=== PATIENT | female | born 1950 | race Caucasian/White ===

== ENCOUNTER → 2016-04-06 | Outpatient (CLI) | payer OTHER, MEDICARE ==
[~2016-04-06] MED LIST: ACET1TAB84 PO; ATV5X PO; CALC-354 PO; CHOL100027 PO; CIPR-255 PO; CITA40TA4 PO; CLR10 PO; HYDR-5688 PO; MELA5CAP PO; METR0.754 TOP; METR500T PO; OXYC1TAB3 PO; PEDICHW44 PO; PSEU30TA20 PO
--- NOTE | 2016-04-06 13:22 | DIAGNOSTIC IMAGING REPORT ---
RIGHT WRIST MIN 3 VIEWS ROUTINE CLINICAL HISTORY: RIGHT WRIST PAIN Right healing fracture COMPARISON: 03/30/2016 DISCUSSION: Mild degenerative changes throughout. No well-defined evidence for fracture. No abnormal periosteal reaction. There is no evidence for soft tissue swelling. IMPRESSION: Mild degenerative change. No acute bony abnormality. No change as compared to the prior study. Electronically signed by: Steve Moise M.D. 04/06/2016 1:20 PM
--- NOTE | 2016-04-06 13:28 | DIAGNOSTIC IMAGING REPORT ---
RIGHT ELBOW MIN 3 VIEWS CLINICAL HISTORY: Healing fracture COMPARISON: 03/30/2016 DISCUSSION: There is subtle angulation of the radial neck consistent with a radial neck fracture. There is no change in alignment. There is no dislocation. IMPRESSION: Suspected radial neck fracture. No change in alignment.. Electronically signed by: Dyllan Krishnan M.D. 04/06/2016 1:26 PM
== END | disposition home or self-care (01) ==
LOC: C.RDSM 08:00
PROVIDERS: ATTEND Physical Medicine & Rehabilitation Sports Medicine
DX: M25.531 Pain in right wrist (principal); M25.521 Pain in right elbow

== ENCOUNTER → 2016-04-19 | Outpatient (CLI) | payer OTHER, MEDICARE ==
--- NOTE | 2016-04-19 07:38 | DIAGNOSTIC IMAGING REPORT ---
KUB CLINICAL HISTORY: Nephrolithiasis. COMPARISON STUDY: CT of the abdomen and pelvis March 04, 2015. FINDINGS: There are numerous coils from prior hernia repair. There is a large amount of stool within the colon. Pelvic calcifications were shown to represent phleboliths on a prior CT. No renal calculi are identified although the kidneys are partially obscured by stool. IMPRESSION: No urinary calculi identified although both renal shadows are partially obscured by stool. Electronically signed by: Aquiles Wong M.D. 04/19/2016 7:36 AM Dictated Date/Time: 04/19/2016 7:34 AM
== END | disposition home or self-care (01) ==
LOC: C.RAD 07:14
PROVIDERS: ATTEND Nurse Practitioner Family
DX: N20.0 Calculus of kidney (principal)

== ENCOUNTER → 2016-04-20 | Outpatient (CLI) | payer OTHER, MEDICARE | END | disposition home or self-care (01) | LOC: C.RDSM 07:37 | PROVIDERS: ATTEND Physical Medicine & Rehabilitation Sports Medicine | DX: S52.571D Other intraarticular fracture of lower end of right radius, subsequent encounter for closed fracture with routine healing (principal); X58.XXXD Exposure to other specified factors, subsequent encounter ==

== ENCOUNTER → 2016-05-21 | Outpatient (CLI) | payer OTHER, MEDICARE | END | disposition home or self-care (01) | LOC: C.RDSM 12:09 | PROVIDERS: ATTEND Physical Medicine & Rehabilitation Sports Medicine | DX: S62.001D Unspecified fracture of navicular [scaphoid] bone of right wrist, subsequent encounter for fracture with routine healing (principal); X58.XXXD Exposure to other specified factors, subsequent encounter ==

== ENCOUNTER → 2016-06-21 | Outpatient (CLI) | payer OTHER, MEDICARE | END | disposition home or self-care (01) | LOC: C.RDSM 08:00 | PROVIDERS: ATTEND Physical Medicine & Rehabilitation Sports Medicine | DX: S62.024D Nondisplaced fracture of middle third of navicular [scaphoid] bone of right wrist, subsequent encounter for fracture with routine healing (principal); X58.XXXA Exposure to other specified factors, initial encounter ==

== ENCOUNTER → 2016-06-23 | Outpatient (CLI) | payer OTHER, MEDICARE ==
--- NOTE | 2016-06-23 13:09 | DIAGNOSTIC IMAGING REPORT ---
CT SCAN OF THE RIGHT WRIST WITHOUT IV CONTRAST CLINICAL HISTORY: Scaphoid fracture. COMPARISON STUDY: Radiographs of the right wrist dated 06/21/2016 and 05/21/2016. TECHNIQUE: CT scan of the right wrist is performed from the distal radius and ulna to the proximal phalanges. Images are reviewed in the axial, sagittal, and coronal planes. IV contrast was not administered for this examination. CT DOSE: 205.49 mGy.cm FINDINGS: The skeletal structures are osteopenic. There is no evidence of acute or healing fracture. There is a chronic avulsion injury of the radial styloid. Foci of cystic degenerative change are seen within the scaphoid and the lunate. Mild degenerative narrowing is seen throughout the intercarpal and carpometacarpal joints. There is mild widening between the scaphoid and the lunate which measures up to 4.5 mm suggesting ligamentous injury. There is no proximal migration of the capitate. The overlying soft tissues are normal as visualized. IMPRESSION: 1. There is no evidence of acute or healing fracture in the right wrist. 2. There is widening between the scaphoid and the lunate suggesting ligamentous injury. 3. Osteopenia and degenerative change as above. Dictated: 06/23/2016 12:27 PM Transcribed: 06/23/2016 1:09 PM [email or web address] Electronically signed by: Sami Cantrell M.D. 06/23/2016 1:13 PM Dictated Date/Time: 06/23/2016 12:27 PM
== END | disposition home or self-care (01) ==
LOC: C.CTS 12:04
PROVIDERS: ATTEND Physical Medicine & Rehabilitation Sports Medicine
DX: S62.024D Nondisplaced fracture of middle third of navicular [scaphoid] bone of right wrist, subsequent encounter for fracture with routine healing (principal); X58.XXXD Exposure to other specified factors, subsequent encounter; M85.831 Other specified disorders of bone density and structure, right forearm

== ENCOUNTER → 2016-06-25 | Outpatient (CLI) | payer OTHER, MEDICARE | END | disposition home or self-care (01) | LOC: C.RDSM 12:18 | PROVIDERS: ATTEND Physical Medicine & Rehabilitation Sports Medicine | DX: S52.124D Nondisplaced fracture of head of right radius, subsequent encounter for closed fracture with routine healing (principal); X58.XXXD Exposure to other specified factors, subsequent encounter ==

== ENCOUNTER 2016-08-17 21:32 | Emergency (ER) | payer OTHER, MEDICARE ==
[~2016-08-17] VITALS: Ht 163.8 cm; Wt 133.2 kg
[~2016-08-17 21:32] MED LIST changes: -CIPR-255 PO; -HYDR-5688 PO; -METR500T PO; -PSEU30TA20 PO
[2016-08-17 21:42] VITALS: TEMP 36.6; Ht 163.8 cm; Wt 133.2 kg
[2016-08-17] MEDS ORDERED: KETOROLAC TROMETHAMINE 30 MG/ML VIAL IV STA (21:55)
[2016-08-17] MEDS ORDERED: HYDROmorphone INJ 0.5 MG/0.5 ML SYR IV STA (21:55)
[2016-08-17] MEDS ORDERED: PSEU30TA20 PO (22:15)
--- NOTE | 2016-08-17 22:21 | EMERGENCY ROOM VISIT NOTE ---
History Report prepared by Willieibpao: Montserrat Olsen Under the Supervision of: Ag RankinO. First contact with patient: 21:46 Chief Complaint: KIDNEY STONE Stated Complaint: LEFT KIDNEY STONE History of Present Illness The patient is a 66 year old female who presents to the Emergency Room with complaints of persistent left flank pain starting about 5 hours ago. She currently rates a pain intensity of 9/10. She denies nausea, vomiting, urinary symptoms, or any other complaints. She has a history of similar symptoms occurring with kidney stones. Her last episode of kidney stones occurred a few years ago. She also has a history of pyelonephritis. Source of History: patient Onset: about 5 hours ago Position: other (left flank) Symptom Intensity: 9/10 Timing: other (persistent) Associated Symptoms: No nausea, No urinary symptoms, No vomiting Review of Systems See HPI for pertinent positives and negatives. A total of ten systems were reviewed and were otherwise negative. Past Medical & Surgical Medical Problems: (1) Anxiety (2) Depression (3) History of asthma (4) History of kidney stones (5) History of sleep apnea (6) Intestinal Bypass Status (7) Osteoarthritis (8) Rosacea Surgical Problems: (1) History of gastric bypass (2) History of hysterectomy (3) History of lithotripsy (4) History of tubal ligation (5) History of umbilical hernia repair (6) History of ureter stent Family History Aneurysm Cardiovascular disease FH: heart disease Social History Smoking Status: Never Smoker Alcohol Use: none Marital Status: Housing Status: lives with family Occupation Status: retired Current/Historical Medications Scheduled Calcium Carbonate-Cholecalcife (Caltrate 600+D), 1 TAB PO BIDM Cholecalciferol (Vitamin D 1000 Unit), 1,000 INTER.UNIT PO DAILY Citalopram (Citalopram Hydrobromide), 40 MG PO DAILY Loratadine (Claritin), 10 MG PO QAM Melatonin (Melatonin), 5 MG PO HS Metronidazole (Topical) (Metrocream), 1 APPLN TOP BID Pediatric Multiple Vitamins W/ (Flintstones Plus Iron), 1 TAB PO BID Scheduled PRN Acetaminophen (Tylenol Arthritis Ext Rel), 2 CAP PO Q8H PRN for Pain Lorazepam (Lorazepam), 0.5 MG PO TID PRN for Anxiety Pseudoephedrine (Sudafed), 30 MG PO DAILY PRN for PRN Allergies Coded Allergies: Adhesives (Verified Allergy, Unknown, RED RASH, 03/20/16) BEE STING (Verified Allergy, Unknown, 03/20/16) Dust (Verified Allergy, Unknown, sinusitis, 03/20/16) NO KNOWN DRUG ALLERGIES (Verified Allergy, Unknown, ., 03/20/16) Physical Exam Vital Signs Date Time Temp Pulse Resp B/P Pulse Ox O2 Delivery O2 Flow Rate FiO2 08/17/16 22:59 75 18 118/82 98 Room Air 08/17/16 21:42 36.6 73 18 158/71 98 Room Air Physical Exam GENERAL: Awake, alert, well-appearing, in no distress HENT: Normocephalic, atraumatic. Oropharynx unremarkable. EYES: Normal conjunctiva. Sclera non-icteric. NECK: Supple. No nuchal rigidity. FROM. No JVD. RESPIRATORY: Clear to auscultation. CARDIAC: Regular rate, normal rhythm. Extremities warm and well perfused. Pulses equal. ABDOMEN: Soft, non-distended. No tenderness to palpation. No rebound or guarding. No masses. RECTAL: Deferred. MUSCULOSKELETAL: Chest examination reveals no tenderness. The back is symmetrical on inspection without obvious abnormality. Left costovertebral tenderness to palpation. No joint edema. LOWER EXTREMITIES: Calves are equal size bilaterally and non-tender. No edema. No discoloration. NEURO: Normal sensorium. No sensory or motor deficits noted. SKIN: No rash or jaundice noted. Medical Decision & Procedures ER Provider Diagnostic Interpretation: CT: Radiology results as stated below per my review and radiologist interpretation CT SCAN OF THE ABDOMEN AND PELVIS WITHOUT CONTRAST CLINICAL HISTORY: Left-sided abdominal pain COMPARISON STUDY: 03/04/2015 TECHNIQUE: CT scan of the abdomen and pelvis was performed from the lung bases to the proximal femurs. Images are reviewed in the axial, sagittal, and coronal planes. IV contrast was not administered for this examination. CT DOSE: 1936.80 mGy.cm FINDINGS: Lower chest: There is minor basilar atelectasis Liver: There is stable right left lobe hypodensities, the largest of which measures 38 mm. These likely represent cysts. Gallbladder: Surgically absent Spleen: Normal in size and attenuation. Pancreas: Unremarkable. Adrenal glands: Unremarkable. Kidneys: There are bilateral renal cysts. The largest is located on the lower pole the left kidney measuring 24 mm. No renal, ureteral, or bladder calculi are visualized. Bowel: There are postsurgical changes of a gastric bypass and Jeevan-en-Y anastomosis. There are no transition zones indicate bowel obstruction. There are mild peridiverticular inflammatory changes involving the mid descending colon. The findings are consistent with diverticulitis. There are no fluid collections to indicate an abscess. The appendix appears normal. Peritoneum: There is no intraperitoneal free air or abdominal ascites. There are postsurgical changes of a ventral hernia mesh repairs Vasculature: The abdominal aorta is normal in course and caliber. Adenopathy: None. Pelvic viscera: The uterus appears surgically absent Skeletal structures: No destructive osseous lesions are seen. IMPRESSION: 1. Acute diverticulitis involving the mid descending colon. No evidence of peridiverticular abscess. Electronically signed by: Dyllan Krishnan M.D. 08/17/2016 10:44 PM Dictated Date/Time: 08/17/2016 10:37 PM Laboratory Results 08/17/16 22:10 Red Blood Count 4.07, Mean Corpuscular Volume 99.8, Mean Corpuscular Hemoglobin 31.7, Mean Corpuscular Hemoglobin Concent 31.8, Mean Platelet Volume 11.0, Neutrophils (%) (Auto) 65.0, Lymphocytes (%) (Auto) 25.5, Monocytes (%) (Auto) 7.4, Eosinophils (%) (Auto) 1.6, Basophils (%) (Auto) 0.3, Neutrophils # (Auto) 7.00, Lymphocytes # (Auto) 2.74, Monocytes # (Auto) 0.80, Eosinophils # (Auto) 0.17, Basophils # (Auto) 0.03 08/17/16 22:10 Test 08/17/16 22:10 White Blood Count 10.76 K/uL (4.8-10.8) Red Blood Count 4.07 M/uL (4.2-5.4) Hemoglobin 12.9 g/dL (12.0-16.0) Hematocrit 40.6 % (37-47) Mean Corpuscular Volume 99.8 fL (80-100) Mean Corpuscular Hemoglobin 31.7 pg (25-34) Mean Corpuscular Hemoglobin Concent 31.8 g/dl (32-36) Platelet Count 258 K/uL (130-400) Mean Platelet Volume 11.0 fL (7.4-10.4) Neutrophils (%) (Auto) 65.0 % Lymphocytes (%) (Auto) 25.5 % Monocytes (%) (Auto) 7.4 % Eosinophils (%) (Auto) 1.6 % Basophils (%) (Auto) 0.3 % Neutrophils # (Auto) 7.00 K/uL (1.4-6.5) Lymphocytes # (Auto) 2.74 K/uL (1.2-3.4) Monocytes # (Auto) 0.80 K/uL (0.11-0.59) Eosinophils # (Auto) 0.17 K/uL (0-0.5) Basophils # (Auto) 0.03 K/uL (0-0.2) RDW Standard Deviation 49.8 fL (36.4-46.3) RDW Coefficient of Variation 13.5 % (11.5-14.5) Immature Granulocyte % (Auto) 0.2 % Immature Granulocyte # (Auto) 0.02 K/uL (0.00-0.02) Urine Color YELLOW Urine Appearance CLOUDY (CLEAR) Urine pH 5.5 (4.5-7.5) Urine Specific [place] 1.014 (1.000-1.030) Urine Protein NEG (NEG) Urine Glucose (UA) NEG (NEG) Urine Ketones NEG (NEG) Urine Occult Blood TRACE (NEG) Urine Nitrite NEG (NEG) Urine Bilirubin NEG (NEG) Urine Urobilinogen NEG (NEG) Urine Leukocyte Esterase LARGE (NEG) Urine WBC (Auto) >30 /hpf (0-5) Urine RBC (Auto) 0-4 /hpf (0-4) Urine Hyaline Casts (Auto) 5-10 /lpf (0-5) Urine Epithelial Cells (Auto) 5-10 /lpf (0-5) Urine Bacteria (Auto) NEG (NEG) Anion Gap 7.0 mmol/L (3-11) Est Creatinine Clear Calc Drug Dose 113.3 ml/min Estimated GFR () 105.9 Estimated GFR (Non- 91.4 BUN/Creatinine Ratio 22.0 (10-20) Calcium Level 8.4 mg/dl (8.5-10.1) Laboratory results reviewed by me Medications Administered Medications (Trade) Dose Ordered Sig/Benny Route Start Time Stop Time Status Last Admin Dose Admin Ketorolac Tromethamine (Toradol Inj) 30 mg NOW STAT IV 08/17/16 21:55 08/17/16 21:56 DC 08/17/16 22:14 30 MG Hydromorphone HCl (Dilaudid Inj) 0.5 mg NOW STAT IV 08/17/16 21:55 08/17/16 21:56 DC 08/17/16 22:14 0.5 MG Ciprofloxacin (Cipro Tab) 500 mg NOW STAT PO 08/17/16 22:52 08/17/16 22:53 DC 08/17/16 22:57 500 MG Metronidazole (Flagyl Tab) 500 mg NOW STAT PO 08/17/16 22:52 08/17/16 22:53 DC 08/17/16 22:57 500 MG ED Course 2145: The patient was evaluated in room B11B. A complete history and physical exam was performed. 2154: Dilaudid Inj 0.5 mg IV, Toradol Inj 30 mg IV 2251: Flagyl Tab 500 mg PO, Cipro Tab 500 mg PO 2256: I reevaluated the patient. Discussed results and discharge instructions: She verbalized understanding and agreement. The patient is ready for discharge. Medical Decision Differential diagnosis includes but is not limited to renal colic, pyelonephritis. Patient resting in no distress on repeat examination. Patient was found have acute diverticulitis without an abscess. Patient was started on Cipro and Flagyl I discussed the workup with the patient patient's at bedside. Patient will follow-up and will be on antibiotics for the next 10 days. Impression Primary Impression: Acute diverticulitis Additional Impression: Left flank pain Scribe Attestation The scribe's documentation has been prepared under my direction and personally reviewed by me in its entirety. I confirm that the note above accurately reflects all work, treatment, procedures, and medical decision making performed by me. Departure Information Dispostion Home / Self-Care Prescriptions Hydrocodone/Acetaminophen 5MG/325MG ([place] 5MG/325MG) Tab 1 TABLET PO Q4H Y for Pain, #14 TAB Prov: Diogo Mcqueen, DO 08/17/16 Metronidazole (FLAGYL) 500 Mg Tab 500 MG PO BID, #20 TAB Prov: Diogo Mcqueen, DO 08/17/16 Ciprofloxacin Hcl (CIPRO) 500 Mg Tab 500 MG PO BID, #20 TAB Prov: Diogo Mcqueen, DO 08/17/16 Referrals Steve Machado M.D. (PCP) Forms HOME CARE DOCUMENTATION FORM, IMPORTANT VISIT INFORMATION Patient Instructions ED Diverticulitis, [facility] Problem Qualifiers
[2016-08-17 22:22] LABS: BASO % 0.3 %; BASO ABS # 0.03 K/uL (0-0.2); COMPLETE YES; EOS % 1.6 %; HEMATOCRIT 40.6 % (37-47); IG% 0.2 %; LYMPH % 25.5 %; LYMPH ABS # 2.74 K/uL (1.2-3.4); MEAN CELL VOLUME 99.8 fL (80-100); MEAN CORPUSCULAR HEMOGLOBIN 31.7 pg (25-34); MEAN CORPUSCULAR HGB CONC 31.8 g/dl (32-36); MONO % 7.4 %; PLATELET COUNT 258 K/uL (130-400); RED BLOOD COUNT 4.07 M/uL (4.2-5.4); WHITE BLOOD COUNT 10.76 K/uL (4.8-10.8)
[2016-08-17 22:42] LABS: CREATININE 0.66 mg/dl (0.60-1.20); POTASSIUM 3.8 mmol/L (3.5-5.1)
[2016-08-17 22:43] LABS: CALCIUM 8.4 mg/dl (8.5-10.1); URINE APPEARANCE CLOUDY (CLEAR); URINE BILIRUBIN NEG (NEG); URINE COLOR YELLOW; URINE NITRITE NEG (NEG); URINE PH 5.5 (4.5-7.5); URINE SPECIFIC GRAVITY 1.014 (1.000-1.030); UROBILINOGEN NEG (NEG)
--- NOTE | 2016-08-17 22:45 | DIAGNOSTIC IMAGING REPORT ---
CT SCAN OF THE ABDOMEN AND PELVIS WITHOUT CONTRAST CLINICAL HISTORY: Left-sided abdominal pain COMPARISON STUDY: 03/04/2015 TECHNIQUE: CT scan of the abdomen and pelvis was performed from the lung bases to the proximal femurs. Images are reviewed in the axial, sagittal, and coronal planes. IV contrast was not administered for this examination. CT DOSE: 1936.80 mGy.cm FINDINGS: Lower chest: There is minor basilar atelectasis Liver: There is stable right left lobe hypodensities, the largest of which measures 38 mm. These likely represent cysts. Gallbladder: Surgically absent Spleen: Normal in size and attenuation. Pancreas: Unremarkable. Adrenal glands: Unremarkable. Kidneys: There are bilateral renal cysts. The largest is located on the lower pole the left kidney measuring 24 mm. No renal, ureteral, or bladder calculi are visualized. Bowel: There are postsurgical changes of a gastric bypass and Jeevan-en-Y anastomosis. There are no transition zones indicate bowel obstruction. There are mild peridiverticular inflammatory changes involving the mid descending colon. The findings are consistent with diverticulitis. There are no fluid collections to indicate an abscess. The appendix appears normal. Peritoneum: There is no intraperitoneal free air or abdominal ascites. There are postsurgical changes of a ventral hernia mesh repairs Vasculature: The abdominal aorta is normal in course and caliber. Adenopathy: None. Pelvic viscera: The uterus appears surgically absent Skeletal structures: No destructive osseous lesions are seen. IMPRESSION: 1. Acute diverticulitis involving the mid descending colon. No evidence of peridiverticular abscess. Electronically signed by: Dyllan Krishnan M.D. 08/17/2016 10:44 PM Dictated Date/Time: 08/17/2016 10:37 PM
[2016-08-17 22:47] LABS: MANUAL MICROSCOPIC REQUIRED? NO; REVIEW REQ? NO
[2016-08-17] MEDS ORDERED: CIPROFLOXACIN 500 MG TAB PO STA (22:52)
[2016-08-17] MEDS ORDERED: METRONIDAZOLE 250 MG TAB PO STA (22:52)
[2016-08-17 22:59] VITALS: BP 118/82; PULSE 75; O2SAT 98
[2016-08-17] MEDS ORDERED: CIPR-255 PO (23:13)
[2016-08-17] MEDS ORDERED: HYDR-5688 PO (23:13)
[2016-08-17] MEDS ORDERED: METR500T PO (23:13)
== END 2016-08-17 23:30 | disposition home or self-care (01) ==
LOC: C.EDB 21:33
DX: K57.92 Diverticulitis of intestine, part unspecified, without perforation or abscess without bleeding (principal); F32.9 Major depressive disorder, single episode, unspecified; F41.9 Anxiety disorder, unspecified; J45.909 Unspecified asthma, uncomplicated; M19.90 Unspecified osteoarthritis, unspecified site; G47.30 Sleep apnea, unspecified; Z87.442 Personal history of urinary calculi; Z90.710 Acquired absence of both cervix and uterus; Z98.84 Bariatric surgery status; Z98.51 Tubal ligation status; Z79.899 Other long term (current) drug therapy; Z91.09 Other allergy status, other than to drugs and biological substances; Z91.030 Bee allergy status; Z82.49 Family history of ischemic heart disease and other diseases of the circulatory system

== ENCOUNTER 2017-02-21 16:14 | Emergency (ER) | payer OTHER, MEDICARE ==
[~2017-02-21] VITALS: Ht 163.8 cm; Wt 131.6 kg
[~2017-02-21 16:14] MED LIST changes: +CIPR-255 PO; -OXYC1TAB3 PO; +PSEU30TA20 PO
[2017-02-21 16:23] VITALS: TEMP 36.7; Ht 163.8 cm; Wt 131.6 kg
[2017-02-21] MEDS ORDERED: LIDODERM (LIDOCAINE) PATCH 5% TD STA (16:37)
[2017-02-21 17:10] LABS: MANUAL MICROSCOPIC REQUIRED? YES; URINE APPEARANCE CLEAR (CLEAR); URINE BILIRUBIN NEG (NEG); URINE COLOR YELLOW; URINE NITRITE NEG (NEG); URINE PH 5.5 (4.5-7.5); URINE SPECIFIC GRAVITY 1.025 (1.000-1.030); UROBILINOGEN NEG (NEG)
[2017-02-21 17:16] LABS: REVIEW REQ? NO
[2017-02-21 17:23] LABS: BASO % 0.3 %; BASO ABS # 0.03 K/uL (0-0.2); COMPLETE YES; EOS % 3.4 %; HEMATOCRIT 41.2 % (37-47); IG% 0.4 %; LYMPH % 26.4 %; MEAN CELL VOLUME 96.9 fL (80-100); MEAN CORPUSCULAR HEMOGLOBIN 31.8 pg (25-34); MEAN CORPUSCULAR HGB CONC 32.8 g/dl (32-36); MEAN PLATELET VOLUME 11.1 fL (7.4-10.4); MONO % 8.6 %; NEUT % 60.9 %; PLATELET COUNT 299 K/uL (130-400); RED BLOOD COUNT 4.25 M/uL (4.2-5.4); WHITE BLOOD COUNT 9.08 K/uL (4.8-10.8)
[2017-02-21 17:38] LABS: ALT/SGPT 16 U/L (12-78); BLOOD UREA NITROGEN 9 mg/dl (7-18); CALCIUM 8.6 mg/dl (8.5-10.1); CARBON DIOXIDE 31 mmol/L (21-32); CHLORIDE 103 mmol/L (98-107); CREATININE 0.67 mg/dl (0.60-1.20); GLUCOSE 86 mg/dl (70-99); POTASSIUM 3.4 mmol/L (3.5-5.1); SODIUM 140 mmol/L (136-145)
[2017-02-21 17:43] LABS: ALB/GLOB RATIO 0.8 (0.9-2); ALKALINE PHOSPHATASE 115 U/L (45-117); AST/SGOT 20 U/L (15-37)
[2017-02-21 17:52] LABS: URINE BACTERIA NEG (NEG); URINE RBC 0-4 /hpf (0-4)
[2017-02-21 17:53] LABS: ZZUR CULT IF INDIC CLEAN CATCH NO
--- NOTE | 2017-02-21 17:59 | DIAGNOSTIC IMAGING REPORT ---
L RIBS UNILATERAL WITH PA CHEST CLINICAL HISTORY: left lateral rib pain pain COMPARISON STUDY: None FINDINGS: No acute bony abnormality of the ribs. Cortical margins are intact. Like atelectasis left base. No evidence pneumothorax. IMPRESSION: 1. Negative left ribs. 2. Platelike atelectasis left base. 3. No evidence for pneumothorax. The above report was generated using voice recognition software. It may contain grammatical, syntax or spelling errors. Electronically signed by: Steve Moise M.D. 02/21/2017 5:58 PM Dictated Date/Time: 02/21/2017 5:55 PM
--- NOTE | 2017-02-21 18:14 | EMERGENCY ROOM VISIT NOTE ---
History Report prepared by Susan: Surendra Vargas Under the Supervision of: Dr. Estela Reid D.O. First contact with patient: 16:26 Chief Complaint: FLANK PAIN Stated Complaint: PAIN IN LEFT SIDE History of Present Illness The patient is a 66 year old female who presents to the Emergency Room with complaints of intermittent left rib pain beginning today. She describes her pain as "burning" and "sharp". She also complains of an occasionally productive cough, chills and cold-like symptoms. The patient's pain is worsened with coughing and movement. She notes that she had diarrhea last week, and has not had a bowel movement in the past several days. She vomited once last week after eating Spaghetti as well. She has taken Tylenol for her pain, but this has not helped. The patient is currently taking Augmentin and Tessalon Perles. Her symptoms are worse at night, and worse with lying down. She denies urinary symptoms. The patient states that she has not been eating much recently. She has a history of diverticulitis, and kidney stones. She feels that her pain feels more like diverticulitis than kidney stones. Source of History: patient Onset: Today Position: other (left ribs) Timing: intermittent Modifying Factors (Worsening): movement, other (coughing) Associated Symptoms: + chills, + cough (occasionally productive), + diarrhea (last week), No urinary symptoms Note: Additional symptoms: cold-like symptoms. Review of Systems See HPI for pertinent positives & negatives. A total of 10 systems reviewed and were otherwise negative. Past Medical & Surgical Medical Problems: (1) Anxiety (2) Depression (3) History of asthma (4) History of kidney stones (5) History of sleep apnea (6) Intestinal Bypass Status (7) Osteoarthritis (8) Rosacea Surgical Problems: (1) History of gastric bypass (2) History of hysterectomy (3) History of lithotripsy (4) History of tubal ligation (5) History of umbilical hernia repair (6) History of ureter stent Family History Aneurysm Cardiovascular disease FH: heart disease Social History Smoking Status: Never Smoker Alcohol Use: none Marital Status: Housing Status: lives with family Occupation Status: retired Current/Historical Medications Scheduled Calcium Carbonate-Cholecalcife (Caltrate 600+D), 1 TAB PO BIDM Cholecalciferol (Vitamin D 1000 Unit), 1,000 INTER.UNIT PO DAILY Ciprofloxacin Hcl (Cipro), 500 MG PO BID Citalopram (Citalopram Hydrobromide), 40 MG PO DAILY Loratadine (Claritin), 10 MG PO QAM Melatonin (Melatonin), 5 MG PO HS Metronidazole (Topical) (Metrocream), 1 APPLN TOP BID Pediatric Multiple Vitamins W/ (Flintstones Plus Iron), 1 TAB PO BID Scheduled PRN Acetaminophen (Tylenol Arthritis Ext Rel), 2 CAP PO Q8H PRN for Pain Lorazepam (Lorazepam), 0.5 MG PO TID PRN for Anxiety Pseudoephedrine (Sudafed), 30 MG PO DAILY PRN for PRN Allergies Coded Allergies: Adhesives (Verified Allergy, Unknown, RED RASH, 03/20/16) BEE STING (Verified Allergy, Unknown, 03/20/16) Dust (Verified Allergy, Unknown, sinusitis, 03/20/16) NO KNOWN DRUG ALLERGIES (Verified Allergy, Unknown, ., 03/20/16) Physical Exam Vital Signs Date Time Temp Pulse Resp B/P (MAP) Pulse Ox O2 Delivery O2 Flow Rate FiO2 02/21/17 16:23 36.7 74 20 137/56 95 Room Air Physical Exam GENERAL: alert, well appearing, well nourished, no distress, non-toxic. Obese EYE EXAM: normal conjunctiva, PERRL and EOM's grossly intact OROPHARYNX: no exudate, no erythema, lips, buccal mucosa, and tongue normal and mucous membranes are moist NECK: supple, no nuchal rigidity, no adenopathy, non-tender LUNGS: Clear to auscultation. Normal chest wall mechanics. Normal wheezes, rhonchi, rales. HEART: no murmurs, S1 normal and S2 normal CHEST: Reproducible chest pain along left lateral ribs, no crepitus, no step- off. ABDOMEN: abdomen soft, non-tender, normo-active bowel sounds, no masses, no rebound or guarding. BACK: Back is symmetrical on inspection and there is no deformity, no midline tenderness, no CVA tenderness. SKIN: no rashes and no bruising UPPER EXTREMITIES: upper extremities are grossly normal. LOWER EXTREMITIES: No pitting edema. NEURO EXAM: Normal sensorium, cranial nerves II-XII grossly intact, normal speech, no gross weakness of arms, no gross weakness of legs. Medical Decision & Procedures ER Provider Diagnostic Interpretation: Radiology results have been interpreted by the radiologist and reviewed by me. L RIBS UNILATERAL WITH PA CHEST CLINICAL HISTORY: left lateral rib pain pain COMPARISON STUDY: None FINDINGS: No acute bony abnormality of the ribs. Cortical margins are intact. Like atelectasis left base. No evidence pneumothorax. IMPRESSION: 1. Negative left ribs. 2. Platelike atelectasis left base. 3. No evidence for pneumothorax. The above report was generated using voice recognition software. It may contain grammatical, syntax or spelling errors. Electronically signed by: Steve Moise M.D. 02/21/2017 5:58 PM Laboratory Results 02/21/17 16:50 Red Blood Count 4.25, Mean Corpuscular Volume 96.9, Mean Corpuscular Hemoglobin 31.8, Mean Corpuscular Hemoglobin Concent 32.8, Mean Platelet Volume 11.1, Neutrophils (%) (Auto) 60.9, Lymphocytes (%) (Auto) 26.4, Monocytes (%) (Auto) 8.6, Eosinophils (%) (Auto) 3.4, Basophils (%) (Auto) 0.3, Neutrophils # (Auto) 5.52, Lymphocytes # (Auto) 2.40, Monocytes # (Auto) 0.78, Eosinophils # (Auto) 0.31, Basophils # (Auto) 0.03 02/21/17 16:50 Test 02/21/17 00:00 02/21/17 16:50 Urine Color YELLOW Urine Appearance CLEAR (CLEAR) Urine pH 5.5 (4.5-7.5) Urine Specific [place] 1.025 (1.000-1.030) Urine Protein NEG (NEG) Urine Glucose (UA) NEG (NEG) Urine Ketones NEG (NEG) Urine Occult Blood TRACE (NEG) Urine Nitrite NEG (NEG) Urine Bilirubin NEG (NEG) Urine Urobilinogen NEG (NEG) Urine Leukocyte Esterase TRACE (NEG) Urine RBC 0-4 /hpf (0-4) Urine WBC 1-5 /hpf (0-5) Urine Epithelial Cells 10-20 /lpf (0-5) Urine Renal Cells 0-5 /lpf (FEW) Urine Bacteria NEG (NEG) White Blood Count 9.08 K/uL (4.8-10.8) Red Blood Count 4.25 M/uL (4.2-5.4) Hemoglobin 13.5 g/dL (12.0-16.0) Hematocrit 41.2 % (37-47) Mean Corpuscular Volume 96.9 fL (80-100) Mean Corpuscular Hemoglobin 31.8 pg (25-34) Mean Corpuscular Hemoglobin Concent 32.8 g/dl (32-36) Platelet Count 299 K/uL (130-400) Mean Platelet Volume 11.1 fL (7.4-10.4) Neutrophils (%) (Auto) 60.9 % Lymphocytes (%) (Auto) 26.4 % Monocytes (%) (Auto) 8.6 % Eosinophils (%) (Auto) 3.4 % Basophils (%) (Auto) 0.3 % Neutrophils # (Auto) 5.52 K/uL (1.4-6.5) Lymphocytes # (Auto) 2.40 K/uL (1.2-3.4) Monocytes # (Auto) 0.78 K/uL (0.11-0.59) Eosinophils # (Auto) 0.31 K/uL (0-0.5) Basophils # (Auto) 0.03 K/uL (0-0.2) RDW Standard Deviation 46.8 fL (36.4-46.3) RDW Coefficient of Variation 13.3 % (11.5-14.5) Immature Granulocyte % (Auto) 0.4 % Immature Granulocyte # (Auto) 0.04 K/uL (0.00-0.02) Anion Gap 6.0 mmol/L (3-11) Est Creatinine Clear Calc Drug Dose 110.8 ml/min Estimated GFR () 105.4 Estimated GFR (Non- 91.0 BUN/Creatinine Ratio 13.0 (10-20) Calcium Level 8.6 mg/dl (8.5-10.1) Total Bilirubin 0.2 mg/dl (0.2-1) Aspartate Amino Transf (AST/SGOT) 20 U/L (15-37) Alanine Aminotransferase (ALT/SGPT) 16 U/L (12-78) Alkaline Phosphatase 115 U/L (45-117) Troponin I < 0.015 ng/ml (0-0.045) Pro-B-Type Natriuretic Peptide 154 pg/ml (0-900) Total Protein 7.2 gm/dl (6.4-8.2) Albumin 3.1 gm/dl (3.4-5.0) Globulin 4.1 gm/dl (2.5-4.0) Albumin/Globulin Ratio 0.8 (0.9-2) Laboratory results per my review. Medications Administered Medications (Trade) Dose Ordered Sig/Benny Route Start Time Stop Time Status Last Admin Dose Admin Lidocaine (Lidoderm Patch 5%) 1 patch NOW STAT TD 02/21/17 16:37 02/21/17 16:40 DC 02/21/17 18:12 1 PATCH ED Course 1627: The patient was evaluated in room A12B. A complete history and physical exam was performed. 1637: Ordered Lidocaine TD. 1802: Upon reevaluation, the patient is feeling better. I discussed the findings and the treatment plan with the patient. She verbalizes agreement and understanding. The patient was discharged home. Medical Decision Differential diagnosis: Etiologies such as cardiac ischemia, aortic dissection, pulmonary embolism, pneumonia, pneumothorax, musculoskeletal, infections, pericarditis, myocarditis , esophageal rupture, gastrointestinal, as well as others were entertained. Medication Reconcilliation Current Medication List: was personally reviewed by me Blood Pressure Screening Patient's blood pressure: Elevated blood pressure Blood pressure disposition: Elevated BP felt to be situational Impression Primary Impression: Left flank pain Additional Impressions: Upper respiratory infection Musculoskeletal pain Scribe Attestation The scribe's documentation has been prepared under my direction and personally reviewed by me in its entirety. I confirm that the note above accurately reflects all work, treatment, procedures, and medical decision making performed by me. Departure Information Dispostion Home / Self-Care Referrals Steve Machado M.D. (PCP) Patient Instructions My [facility] Additional Instructions Please finish the course of antibiotics. Please follow-up with your family doctor. You may use the pain patch if you like in additional to tylenol. You may use the cough syrup at night as prescribed. Do not take it and drive. If you have any worsening pain, develop trouble urinating, develop fevers, vomiting , notice blood in your sputum, or you have any other new or concerning symptoms , please return to the emergency room. Problem Qualifiers Additional Impressions: Upper respiratory infection URI type: unspecified URI Qualified Codes: J06.9 - Acute upper respiratory infection, unspecified
[2017-02-21] MEDS ORDERED: NF656 TD (18:16)
[2017-02-21] MEDS ORDERED: GUAI100S6 PO (18:16)
[2017-02-21 18:37] VITALS: BP 143/75; PULSE 68; O2SAT 96
== END 2017-02-21 18:39 | disposition home or self-care (01) ==
LOC: C.EDB 16:16 → C.EDA 18:39
DX: J06.9 Acute upper respiratory infection, unspecified (principal); Z87.442 Personal history of urinary calculi; F41.9 Anxiety disorder, unspecified; F32.9 Major depressive disorder, single episode, unspecified; J45.909 Unspecified asthma, uncomplicated; G47.30 Sleep apnea, unspecified; Z98.84 Bariatric surgery status; M19.90 Unspecified osteoarthritis, unspecified site; L71.9 Rosacea, unspecified; Z90.710 Acquired absence of both cervix and uterus; Z98.51 Tubal ligation status; Z82.49 Family history of ischemic heart disease and other diseases of the circulatory system; Z79.899 Other long term (current) drug therapy; E66.9 Obesity, unspecified; Z68.42 Body mass index [BMI] 45.0-49.9, adult

== ENCOUNTER 2017-07-31 08:32 | Emergency (ER) | payer OTHER, MEDICARE ==
[~2017-07-31] VITALS: Ht 162.6 cm; Wt 134.6 kg
[~2017-07-31 08:32] MED LIST changes: +GUAI100S6 PO; +NF656 TD
[2017-07-31 08:44] VITALS: TEMP 36.8; Ht 162.6 cm; Wt 134.6 kg
[2017-07-31] MEDS ORDERED: TRAM-10 PO (08:50)
[2017-07-31] MEDS ORDERED: PSEU30TA3 PO (08:50)
[2017-07-31] MEDS ORDERED: LDDP5 TD (08:50)
--- NOTE | 2017-07-31 09:36 | DIAGNOSTIC IMAGING REPORT ---
LEFT FOOT 3 VIEWS CLINICAL HISTORY: Mid foot pain. FINDINGS: 3 views of the left foot are obtained. No prior studies are available for comparison at the time of dictation. The skeletal structures are osteopenic. No fracture is seen. Moderate arthritic change is seen at the first metatarsophalangeal joint where there is bony sclerosis and subchondral cyst formation. There is no radiographic evidence of Lisfranc injury. An os naviculari is incidentally noted. There are large dorsal and plantar calcaneal enthesophytes. Degenerative spurring is seen along the dorsal aspect of the tarsal bones. The overlying soft tissues are normal as imaged. IMPRESSION: 1. There is no radiographic evidence of left foot fracture. 2. Osteopenia, arthritic change, and heel spurs as above. Electronically signed by: Sami Cantrell M.D. 07/31/2017 9:34 AM Dictated Date/Time: 07/31/2017 9:32 AM
[2017-07-31] MEDS ORDERED: DICL1GEL12 TD (10:06)
[2017-07-31 10:18] VITALS: BP 160/90; PULSE 71; O2SAT 97
--- NOTE | 2017-07-31 17:31 | EMERGENCY ROOM VISIT NOTE ---
ED Visit Note First contact with patient: 08:48 CHIEF COMPLAINT: Left foot pain HISTORY OF PRESENT INJURY: This 67-year-old white female patient developed acute pain in her left dorsal foot 2 days ago. It has persisted. She denies any ability to bear weight or walk. She states she actually has no pain when walking. Pain is always in the dorsum of the foot. It kept her from sleeping last night. She states it creates a radiating pain into her lower leg. No rhyme or reason. No prior history of similar pain. There is no swelling. No numbness or tingling. Pain is moderate to severe. They denies any ankle or knee pain. Pain is 9/10 when it occurs. No prior history of significant foot injury. No treatment yet. Her accompanies her today. REVIEW OF SYSTEM: HEENT: No dizziness, visual problems, hearing loss, or tinnitus. There is no difficulty swallowing and no oral lesions are present. PULMONARY: No cough, shortness of breath, sputum production or hemoptysis. CARDIOVASCULAR: No chest pain, palpitations, shortness of breath or peripheral edema. GASTROINTESTINAL: No diarrhea, constipation, nausea, vomiting, or abdominal pain. GENITOURINARY: No dysuria, frequency, urgency or nocturia. NEUROLOGIC: No weakness, muscle tenderness, epilepsy or history of neurological problems. MUSCULOSKELETAL: No history of joint tenderness/swelling. Positive history of arthritis and arthralgias. SKIN: No rashes or lesions. PSYCHIATRIC: Positive history of anxiety and depression. ENDOCRINE: No history of diabetes, thyroid disorders, or abnormal hair growth. PMH: Supplemental sheet was reviewed and signed. Previous surgeries: Hysterectomy, cholecystectomy, gastric bypass, kidney stone extraction 3 Medical history: History of sinusitis, asthma, obesity, DJD. Current medications: Reviewed and filed in patient's chart Allergies: Adhesives. NKDA Family history: Significant for diabetes, heart disease, hypertension, cancer, lung disease, gallbladder disease, kidney stones. Parents are . SOCIAL HISTORY: Retired. Lives with her . No tobacco use, no EtOH use. PHYSICAL EXAM: Vital Signs: Afebrile. Reviewed and filed in patient's chart. GENERAL: Alert, oriented and coherent, not in acute distress. Laying on the bed. Skin: Warm and dry with good turgor. No rashes or lesions. No ecchymosis or erythema. The patient is not diaphoretic. No abrasions. Musculoskeletal: there is tenderness over the dorsum of the foot. It is at the midfoot. Spurring is palpable. Worst pain is directly at the second tarsometatarsal joint. Pain is only dorsal. Range of motion is limited secondary to pain. No deformity. Ankle examination reveals no discomfort with palpation of the malleoli. Achilles tendon is palpated through the entirety and found to be intact and without defect. Normal Roldan test. No pain with palpation of the metatarsal heads or toes. No pain in the longitudinal arch or at the fifth metatarsal base. Motor function of the toes is intact. Neurologic : Gross sensation is intact across the foot and ankle by soft touch. Peripheral pulses are 2+. EMERGENCY DEPARTMENT COURSE: An X-ray of the foot shows some dorsal spurring at the midfoot. No evidence of fracture or Lisfranc injury. This was read radiology. Plan/disposition: Patient was educated regarding these findings. Conservative care measures were discussed. Ice and elevate the foot intermittently over the next 3 days to reduce pain and swelling. They may then switch to moist heat. Gentle motion daily. Tylenol every 6 hours as needed for discomfort. She is unable to take traditional anti-inflammatories. Patient was given a prescription for Voltaren gel to be used on the foot up to 3 times a day as needed. Follow-up with her PCP or orthopedist if pain persists. She was reassured that there is no dislocation or retained foreign body. Possibility of tendinitis was considered and discussed. DIAGNOSIS: Left foot pain. Left midfoot DJD. Problem List Medical Problems: (1) Anxiety Status: Chronic (2) Depression Status: Chronic (3) History of asthma Status: Chronic (4) History of kidney stones Status: Chronic (5) History of sleep apnea Permanent Comment: resolved with weight loss s/p gastric bypass Status: Chronic (6) Intestinal Bypass Status Status: Chronic (7) Osteoarthritis Status: Chronic (8) Rosacea Status: Chronic Surgical Problems: (1) History of gastric bypass Status: Chronic (2) History of hysterectomy Status: Chronic (3) History of lithotripsy Status: Chronic (4) History of tubal ligation Status: Chronic (5) History of umbilical hernia repair Status: Chronic (6) History of ureter stent Status: Chronic Current/Historical Medications Scheduled Calcium Carbonate-Cholecalcife (Caltrate 600+D), 1 TAB PO BIDM Cholecalciferol (Vitamin D 1000 Unit), 1,000 INTER.UNIT PO DAILY Citalopram (Citalopram Hydrobromide), 40 MG PO DAILY Lidocaine (Lidocaine), 1 PATCH TD NEEDED Loratadine (Claritin), 10 MG PO QAM Melatonin (Melatonin), 5 MG PO HS Metronidazole (Topical) (Metrocream), 1 APPLN TOP BID Pediatric Multiple Vitamins W/ (Flintstones Plus Iron), 1 TAB PO BID Pseudoephedrine Hcl (Sudafed Nasal Decongestan), 1 TAB PO DIRECTED Scheduled PRN Acetaminophen (Tylenol Arthritis Ext Rel), 2 CAP PO Q8H PRN for Pain Diclofenac Sodium (Topical) (Voltaren 1% Top Gel), 1 APPLN TD TID PRN for Pain Lorazepam (Lorazepam), 0.5 MG PO TID PRN for Anxiety Tramadol (Ultram), 50 MG PO Q8H PRN for Pain Allergies Coded Allergies: Adhesives (Verified Allergy, Unknown, RED RASH, 03/20/16) BEE STING (Verified Allergy, Unknown, 03/20/16) Dust (Verified Allergy, Unknown, sinusitis, 03/20/16) NO KNOWN DRUG ALLERGIES (Verified Allergy, Unknown, ., 03/20/16) Vital Signs Date Time Temp Pulse Resp B/P (MAP) Pulse Ox O2 Delivery O2 Flow Rate FiO2 07/31/17 10:18 71 18 160/90 97 07/31/17 08:44 36.8 83 18 162/87 98 Room Air Departure Information Impression Primary Impression: Degenerative joint disease, foot, left Dispostion Home / Self-Care Condition GOOD Prescriptions Diclofenac Sodium (Topical) (VOLTAREN 1% TOP GEL) 1 % Gel 1 APPLN TD TID Y for Pain, #100 GM Prov: Talha Tom,P.A. 07/31/17 Forms HOME CARE DOCUMENTATION FORM, TYLENOL USE, IMPORTANT VISIT INFORMATION Patient Instructions My [facility] Additional Instructions Tylenol every 6 hours as needed for discomfort Voltaren gel applied topically 2-3 times a day as needed for discomfort Follow up with your PCP on Tuesday as scheduled Return to the ED for any other concerns Gentle motion daily Weight-bear as tolerated
== END 2017-07-31 10:19 | disposition home or self-care (01) ==
LOC: C.EDB 08:33
DX: M79.672 Pain in left foot (principal); M19.072 Primary osteoarthritis, left ankle and foot; F41.9 Anxiety disorder, unspecified; F32.9 Major depressive disorder, single episode, unspecified; J45.909 Unspecified asthma, uncomplicated; Z79.899 Other long term (current) drug therapy; Z91.030 Bee allergy status; Z91.048 Other nonmedicinal substance allergy status

== ENCOUNTER 2018-10-30 11:29 | Inpatient (IN) ==
[2018-10-30 12:22] LABS: Basophils # (auto) 0.02 K/uL (0-0.2); Basophils % (auto) 0.2 %; Eosinophils # (auto) 0.15 K/uL (0-0.5); Eosinophils % (auto) 1.7 %; Hemoglobin 13.4 g/dL (12.0-16.0); Immature Granulocytes # (auto) 0.01 K/uL (0.00-0.02); Immature Granulocytes % (auto) 0.1 %; Lymphocytes # (auto) 2.44 K/uL (1.2-3.4); Lymphocytes % (auto) 27.8 %; Mean Corpuscular Hgb Conc 31.9 g/dL (32-36); Mean Corpuscular Volume 98.4 fL (80-100); Mean Platelet Volume 11.4 fL (7.4-10.4); Monocytes # (auto) 0.84 K/uL (0.11-0.59); Monocytes % (auto) 9.6 %; Neutrophils # (auto) 5.33 K/uL (1.4-6.5); Neutrophils % (auto) 60.6 %; Platelet Count 240 K/uL (130-400); RDW Coefficient of Variation 13.6 % (11.5-14.5); RDW Standard Deviation 48.3 fL (36.4-46.3); Red Blood Count 4.27 M/uL (4.2-5.4); White Blood Count 8.79 K/uL (4.8-10.8)
[2018-10-30] MEDS ORDERED: ONDANSETRON INJ 2 MG/ML 2 ML VIAL IV STA ×2 (12:29→13:51)
[2018-10-30] MEDS ORDERED: MoRPHine SULFATE 10 MG/ML CARP/VIAL IV STA ×2 (12:29→15:55)
[2018-10-30 12:33] LABS: Albumin Level 3.3 gm/dl (3.4-5.0); BUN Creatinine Ratio 14.2 (10-20); Calcium 8.5 mg/dl (8.5-10.1); Creatinine Clr Calc Pharmacy 89.9 ml/min; Est GFR (African American) 84.6; Potassium 3.6 mmol/L (3.5-5.1)
[2018-10-30 12:36] LABS: Bilirubin,Total 0.4 mg/dl (0.2-1); Globulin 3.4 gm/dl (2.5-4.0); Total Protein 6.7 gm/dl (6.4-8.2)
[2018-10-30] MEDS ORDERED: MoRPHine SULFATE 4 MG/ML 1 ML CARP\\VIAL IV STA (13:51)
[2018-10-30] MEDS ORDERED: KETOROLAC TROMETHAMINE 15 MG/ML VIAL IV ONE (13:51)
--- NOTE | 2018-10-30 13:57 | Ultrasound Report ---
US renal/blad retro comp HISTORY: Flank pain r flank pain COMPARISON: None. FINDINGS: Right kidney: Maximum dimension 13 cm. Mild hydronephrosis. Nonobstructing lower pole renal calcifica tion. Cortical scarring throughout right kidney. Left kidney: Maximum dimension 11.5 cm. 3 cm lower pole left renal cyst. No evidence for hydronephro sis. Normal corticomedullary differentiation and cortical thickness. Bladder: No bladder wall thickening. The bilateral ureteral jets were identified. IMPRESSION: 1. Mild right renal hydronephrosis. 2. Cortical scarring throughout the right kidney. 3. Nonobstructing lower pole renal calcification on the right. 4. 3 cm left renal cyst. The above report was generated using voice recognition software. It may contain grammatical, syntax or spelling errors. Electronically signed by: Steve Moise M.D. 10/30/2018 1:56 PM
--- NOTE | 2018-10-30 15:01 | XRay Report ---
KUB HISTORY: Acute right-sided flank pain r flank pain COMPARISON: KUB 10/11/2017 FINDINGS: The bowel gas pattern is non-obstructive. Cholecystectomy. Surgical clips also noted about the epigastric region. Prior herniorrhaphy. There is no organomegaly. Renal shadows are partially ob scured by bowel gas. No definite left nephrolithiasis identified. Nonobstructing calculi of the right kidney are seen measuring up to 3 mm. The previously noted 7 mm calculus of the superior pole right kidney is not identified. There are for radiodensities noted about the right abdomen about the L4 tra nsverse process measuring up to 5 mm. Additionally, there is an unchanged vascular calcification note d at this level. Pelvic basin calcifications are likely vascular in origin. No pneumoperitoneum or pn eumatosis. No fracture. IMPRESSION: 1. Right nephrolithiasis. 2. Several radiodensities are noted about the right L4 transverse process measuring up to 5 mm sugges tive of ureteral calculi. Electronically signed by: Jorge Servin M.D. 10/30/2018 3:00 PM
[2018-10-30] MEDS ORDERED: SODIUM CHLORIDE 0.9% 1000ML 2,000 ML IV ONE (15:17)
[2018-10-30 15:32] LABS: Appearance Urine Clear (Clear); Bacteria Urine Automated Negative (Negative); Bilirubin Urine Negative (Negative); Blood Urine 2+ (Negative); Color Urine Yellow; Epithelial Cell Urine Auto >30 /lpf (0-5); Glucose Urine UA Negative (Negative); Ketones Urine Negative (Negative); Leukocyte Esterase Urine 2+ (Negative); Nitrite Urine Negative (Negative); Protein Urine Negative (Negative); RBC Urine Automated >30 /hpf (0-4); Specific Gravity Urine 1.016 (1.000-1.030); Urobilinogen Urine Negative (Negative)
--- NOTE | 2018-10-30 16:50 | History & Physical Report ---
Date of Service October 30, 2018 Assessment & Plan (1) Renal colic: Patient with intractable right flank pain, nausea, and vomiting that started today - s/p lithotripsy on Tuesday10/27/18. - IV pain control with Dilaudid - IV Zofran for nausea - Pt requests to try a regular diet since nausea improved - thinks the nausea was related to the severity of pain, particularly during the ultrasound - Consult urology for additional recommendations (2) Anxiety: Pt managing her depression and anxiety at home with CBD oil - will hold for now - Ordered home prn Ativan (3) Rosacea: Pt on multiple topical therapies at home - declines to have them ordered while admitted. (4) Seasonal allergies: - Continue home loratadine 10 mg daily Pt seen and reviewed with collaborating physician, Dr. Bhakta. Plan of care discussed and as outlined above. Pt's family updated at bedside - all questions answered. Pt currently observational status as she is requesting to go home tomorrow if possible. If stays an additional night due to persistent pain, will need to be changed to a full admission. Bree Newby PA-C History of Present Illness Chief Complaint: right flank pain Primary Care Provider: Steve Machado MD This is a 68 y/o female with a PMH of nephrolithiasis, rosacea, depression, dyslipidemia, history of gastric bypass surgery, FLEMING, and vitamin B12 deficiency presents to the ED today with right flank pain. Pt has a history of nephrolithiasis with multiple episodes having previously required lithotripsy (2009, 2014). Earlier this month she was note to have a 7 mm right renal stone and had started to become symptomatic so she saw urology last week. On Friday 10/27, she underwent right ESWL by Dr. Becerra. She felt well over the weekend but did note gross hematuria until yesterday. Urine since then has been clear. Initially she passed one large stone and then multiple smaller stones shortly after the procedure. This morning she woke up feeling well and ate breakfast. Shortly thereafter (~9 am), she noticed right flank pain that rapidly worsened and radiated around to her right abdomen. She attempted walked around and drank water in attempt to pass the stone but when there was no relief she came to the ED for evaluation. In the ED, she received three doses of IV morphine (total of 16 mg), Toradol (15 mg) before her pain was under control although she is not pain-free. During her time in the ED, she developed nausea with single episode of non-bloody emesis. She received Zofran 4 mg x two doses before nausea improved. She denies fevers, chills, night sweats, fatigue, RASHID, dizziness, c hest pain, dyspnea, peripheral edema. She was referred for admission due to intractable symptoms that were unable to be managed without multiple doses of IV medications. Allergies Allergy/AdvReac Type Severity Reaction Status Date / Time adhesive Allergy Mild RED RASH Verified 10/30/18 13:57 bee venom protein (honey bee) Allergy Mild severe Verified 10/30/18 13:57 swelling, heat at bee sting site No Known Drug Allergies Allergy Unknown . Verified 10/30/18 13:57 Dust Allergy Mild sinusitis Uncoded 10/30/18 13:57 Home Medications Home Medications Medication Instructions Recorded Confirmed Type acetaminophen [Tylenol Arthritis 650 mg PO Q12H PRN 10/25/18 10/30/18 History Pain] cannabidiol (CBD) extract 4 mg PO BID 10/25/18 10/30/18 History cholecalciferol (vitamin D3) 1,000 unit PO HS 10/25/18 10/30/18 History [Vitamin D3] cyanocobalamin (vitamin B-12) 1,000 mcg IM Q6M 10/25/18 10/30/18 History diclofenac sodium 2 g TOPICAL TID 10/25/18 10/30/18 History guaifenesin [Mucinex] 1,200 mg PO DAILY PRN 10/25/18 10/30/18 History loratadine [Claritin] 10 mg PO HS 10/25/18 10/30/18 History lorazepam 0.5 mg PO TID PRN 10/25/18 10/30/18 History metronidazole [MetroCream] 1 applic TOPICAL BID 10/25/18 10/30/18 History pseudoephedrine HCl [Sudafed 12 120 mg PO Q12H PRN 10/25/18 10/30/18 History Hour] hydrocodone-acetaminophen 1 tab PO Q4H PRN 10/30/18 10/30/18 History Past Med/Surg History Medical History Renal colic (Acute) Anxiety (Chronic) Depression (Chronic) History of sleep apnea (Chronic) "resolved with weight loss s/p gastric bypass" History of asthma (Chronic) History of kidney stones (Chronic) Osteoarthritis (Chronic) Rosacea (Chronic) Anxiety Asthma Albuterol inhaler rarely used, no daily inhaler. Kidney stones Osteoarthritis Sleep apnea hx of, no longer had gastric bypass and repeat sleep study was negative. Pt has gained "some" weight back. Surgical History History of bilateral tubal ligation History of cholecystectomy History of colonoscopy History of dilatation and curettage History of gastric bypass History of left breast biopsy benign History of lithotripsy History of total hysterectomy with bilateral salpingo-oophorectomy (BSO) History of umbilical hernia repair x3 History of wisdom tooth extraction Family History Brother Family history of diabetes mellitus Grandmother (Paternal) Family history of diabetes mellitus Sister Family history of diabetes mellitus Family/Other Family history of diabetes mellitus cousins Other No family history of adverse response to anesthesia Social History Preferred Language: Portuguese Communication Ability: Effective Sieve Grader Tender Required: No Beliefs That Will Affect Care: None Current Living Situation: Spouse Other Information That Helps Us Care for You: No Feels Safe at Home: Yes Safety Concerns: Feels Safe At This Time Smoking Status: Never smoker Do You Dip or Chew Tobacco: No Second Hand Exposure: Yes (parents smoked/ smoked) Hx Alcohol Use: Yes Alcohol type: wine Hx Substance Use: No Review of Systems Review of Systems: All systems reviewed & are unremarkable except as noted in HPI & below Constitutional: no fever, no chills, no sweats and no fatigue Eyes: no diplopia, not seeing flashes and no worsening vision Ear, Nose, Mouth, Throat: no nasal congestion, no sore throat and no dysphagia Respiratory: no cough, no chest congestion, no dyspnea and no wheezing Cardiovascular: no chest pain, no palpitations, no lightheadedness, no syncope, no edema and no calf pain Gastrointestinal: + abdominal pain, + nausea and + vomiting; no change in bowel habits and no blood in stools Genitourinary: + urinary frequency (but has been increasing fluid intake since procedure), + hematuria (initially after lithotripsy but now resolved) and + flank pain; no dysuria, no difficulty urinating and no urinary urgency Musculoskeletal: no back pain, no neck pain, no joint pain and no myalgia Integumentary: no rash, no non-healing lesions and no urticaria Neurologic: no gait abnormality, no falls, no tingling, no numbness, no tremor(s) and no headache(s) Physical Exam Constitutional: WD/WN, vitals as above + obese; no acute distress Eyes: + anicteric sclerae; no conjunctival abnormality ENMT: external ear and nose normal, oropharynx normal Neck: trachea midline Respiratory: normal respiratory effort, lungs clear to auscultation Auscultation: no rales, no rhonchi and no wheezes Cardiovascular: Rate/Rhythm: regular rate and regular rhythm Heart Sounds: no gallop, no murmur and no cardiac rub Vessels: dorsalis pedis pulses present Extremities: normal capillary refill; no calf tenderness and no pedal edema Gastrointestinal (Abdomen): Inspection/Auscultation: normal bowel sounds; abdomen not distended Percussion/Palpation: + abdomen tender (RUQ/right flank moderately tender to light palpation); no guarding Right CVA tenderness Musculoskeletal: Head/Neck/Chest: normocephalic, head atraumatic and neck supple Extremities: no cyanosis Skin: no rashes, warm and dry no jaundice Neurologic: moves all extremities; no focal motor deficits Speech / Cognition: normal speech Psychiatric: A+Ox3, euthymic affect Insight: good insight Judgement: good judgement Results & Data Vital Signs (Past 12 Hours) Vital Signs Temp Pulse Pulse Resp BP BP Pulse Ox 10/30/18 15:11 61 15 150/69 H 99 10/30/18 13:47 58 L 20 198/92 H 95 10/30/18 11:37 36.6 C 68 20 202/89 H 97 Laboratory Results Laboratory Results - last 24 hr 10/30/18 10/30/18 10/30/18 12:09 12:09 15:20 WBC 8.79 RBC 4.27 Hgb 13.4 Hct 42.0 MCV 98.4 MCH 31.4 MCHC 31.9 L RDW Std Deviation 48.3 H RDW Coeff of Radha 13.6 Plt Count 240 MPV 11.4 H Immature Gran % (Auto) 0.1 Neut % (Auto) 60.6 Lymph % (Auto) 27.8 [place] % (Auto) 9.6 Eos % (Auto) 1.7 Baso % (Auto) 0.2 Immature Gran # (Auto) 0.01 Neut # (Auto) 5.33 Lymph # (Auto) 2.44 [place] # (Auto) 0.84 H Eos # (Auto) 0.15 Baso # (Auto) 0.02 Sodium 141 Potassium 3.6 Chloride 106 Carbon Dioxide 30 Anion Gap 5.0 BUN 12 Creatinine 0.82 Est Cr Clr Drug Dosing 89.9 Est GFR ( Amer) 84.6 Est GFR (Non-Af Amer) 73.0 BUN/Creatinine Ratio 14.2 Glucose 93 Calcium 8.5 Total Bilirubin 0.4 AST 20 ALT 14 Alkaline Phosphatase 125 H Total Protein 6.7 Albumin 3.3 L Globulin 3.4 Albumin/Globulin Ratio 1.0 Lipase 122 Urine Color Yellow Urine Appearance Clear Urine pH 6.0 Ur Specific [place] 1.016 Urine Protein Negative Urine Glucose (UA) Negative Urine Ketones Negative Urine Blood 2+ H Urine Nitrite Negative Urine Bilirubin Negative Urine Urobilinogen Negative Ur Leukocyte Esterase 2+ H Urine WBC (Auto) 5-10 H Urine RBC (Auto) >30 H U Hyaline Cast (Auto) 1-5 U Epithel Cells (Auto) >30 H Urine Bacteria (Auto) Negative Diagnostic Findings KUB 10/30/28 - IMPRESSION: 1. Right nephrolithiasis. 2. Several radiodensities are noted about the right L4 transverse process measuring up to 5 mm suggestive of ureteral calculi. Renal Ultrasound 10/30/18 - IMPRESSION: 1. Mild right renal hydronephrosis. 2. Cortical scarring throughout the right kidney. 3. Nonobstructing lower pole renal calcification on the right. 4. 3 cm left renal cyst. Medications Administered Sodium Chloride (Nss 1000ml) 2,000 mls @ 999 mls/hr IV .Q2H1M ONE Stop: 10/30/18 17:17 Last Admin: 10/30/18 15:46 Dose: 999 mls/hr Documented by: [id number] Discontinued Medications Ketorolac Tromethamine (Toradol) 15 mg IV NOW ONE Stop: 10/30/18 13:52 Last Admin: 10/30/18 13:55 Dose: 15 mg Documented by: [id number] Morphine Sulfate (Morphine Sulfate) 6 mg IV NOW STA Stop: 10/30/18 12:30 Last Admin: 10/30/18 12:35 Dose: 6 mg Documented by: [id number] Morphine Sulfate (Morphine Sulfate) 4 mg IV NOW STA Stop: 10/30/18 13:52 Last Admin: 10/30/18 13:55 Dose: 4 mg Documented by: [id number] Morphine Sulfate (Morphine Sulfate) 6 mg IV NOW STA Stop: 10/30/18 15:56 Last Admin: 10/30/18 16:08 Dose: 6 mg Documented by: [id number] Ondansetron HCl (Zofran) 4 mg IV NOW STA Stop: 10/30/18 12:30 Last Admin: 10/30/18 12:35 Dose: 4 mg Documented by: [id number] Ondansetron HCl (Zofran) 4 mg IV NOW STA Stop: 10/30/18 13:52 Last Admin: 10/30/18 13:55 Dose: 4 mg Documented by: [id number] Code Status & VTE Plan Code Status Pt requests to be full code if meaningful chance of recovery. is POA. Supervising Physician Co-Signing Physician Notes I saw this patient with the physician assistant sales director, I participated in the history, physical, review of systems, and physical exam. I reviewed the medications with the patient and the physician assistant sales director and helped reconcile the medications. I helped take a detailed family and social history as well. I formulated the assessment and plan personally with the physician assistant sales director and went over it with the patient. ROS-No Headache, No Visual Changes, No Nausea, No Vomiting, No Fever, No Chills, No Neck Pain or Stiffness, No Chest Pain, No Palpitations, No SOB, No ROSE, No Cough, No Sputum, No Wheezing, No Abdominal Pain, No Diarrhea, No Hematemesis, No Hemoptysis, No Unexpected Weight Loss, No Flank pain, No Melena, No Hematochezia, No Frequency, No Urgency, No Burning, No Hematuria, No Rashes, No Diaphoresis. Appetite is Normal, R Flank Pain Physical Exam Gen-AAO x 3, NAD, Afebrile, Obese, Ple[place] Head-NCAT, EOMI, PERRLA, Anicteric Sclera, No Posterior Pharyngeal Erythema Neck-Supple, No JVD, No Thyromegaly, No Masses, No LAD, No Bruits Lungs-Clear to Auscultation Bilaterally, No Rales, No Rhonchi, No Wheezing, No Crepitus Chest-No S4, +S1, +S2, No S3, No Murmurs, No Rubs, No Gallops, No Ectopy Abdomen-Soft, Bowel Sounds Present, Non Tender, Non Distended, No Hepatomegaly, No Splenomegaly, No Palpable Masses, No Rebound, No Rigidity, No Guarding Musculoskeletal-Full Range of Motion Bilaterally, R CVAT Extremities-No Cyanosis, No Clubbing, No Edema Nuero-Cranial Nerves II-XII grossly intact, Motor WNL, DTRs WNL, Strength WNL, Non Focal Psych-Normal Mood
--- NOTE | 2018-10-30 17:21 | Emergency Department Note ---
Entered by Wendy Elias acting as a scribe for History of Present Illness General Chief complaint: Kidney Stone Stated complaint: KIDNEY STONE, RT SIDE Source: patient Mode of arrival: ambulatory Limitations: no limitations History of Present Illness Onset (ago): hour(s) (1000) Location: right (flank) Radiation: abdomen (right) Severity: severe and similar to prior episodes Pain Consistency: + other (episode) Maximum Pain Intensity: 10 Quality: + other (kidney stone) Relieved By: + none Exacerbated By: + none Associated symptoms: + nausea/vomiting (The patient complains of nausea. ) and + other (The patient denies urinary symptoms and abdominal pain. ) Treatments prior to arrival: other (She notes that she was prescribed Percocet and took one at 1000. ) The patient is a 68 year old female with a history of anxiety, depression, asthma, kidney stones, osteroarthritis, rosacea, hysterectomy, tubal ligation, gastric bypass, lithotripsy, and umbilical hernia repair who presents to the ED with complaints of an episode of a kidney stone that onset at 1000. The patient states that she had a lithotripsy completed 3 days ago for a [address] Becerra. She notes that she has severe right sided flank pain that radiates to her right abdomen. The patient complains of nausea and vomiting once. She states that it feels like her prior stones. She denies exacerbating or alleviating factors. The patient denies urinary symptoms and abdominal pain. She notes that she was prescribed Percocet and took one at 1000. Home Medications Home Medications Medication Instructions Recorded Confirmed Type acetaminophen [Tylenol Arthritis 650 mg PO Q12H PRN 10/25/18 10/30/18 History Pain] cannabidiol (CBD) extract 4 mg PO BID 10/25/18 10/30/18 History cholecalciferol (vitamin D3) 1,000 unit PO HS 10/25/18 10/30/18 History [Vitamin D3] cyanocobalamin (vitamin B-12) 1,000 mcg IM Q6M 10/25/18 10/30/18 History diclofenac sodium 2 g TOPICAL TID 10/25/18 10/30/18 History guaifenesin [Mucinex] 1,200 mg PO DAILY PRN 10/25/18 10/30/18 History loratadine [Claritin] 10 mg PO HS 10/25/18 10/30/18 History lorazepam 0.5 mg PO TID PRN 10/25/18 10/30/18 History metronidazole [MetroCream] 1 applic TOPICAL BID 10/25/18 10/30/18 History pseudoephedrine HCl [Sudafed 12 120 mg PO Q12H PRN 10/25/18 10/30/18 History Hour] hydrocodone-acetaminophen 1 tab PO Q4H PRN 10/30/18 10/30/18 History Allergies Allergy/AdvReac Type Severity Reaction Status Date / Time adhesive Allergy Mild RED RASH Verified 10/30/18 13:57 bee venom protein (honey bee) Allergy Mild severe Verified 10/30/18 13:57 swelling, heat at bee sting site No Known Drug Allergies Allergy Unknown . Verified 10/30/18 13:57 Dust Allergy Mild sinusitis Uncoded 10/30/18 13:57 Past Med/Surg History Family History Brother Family history of diabetes mellitus Grandmother (Paternal) Family history of diabetes mellitus Sister Family history of diabetes mellitus Family/Other Family history of diabetes mellitus cousins Other No family history of adverse response to anesthesia Social History Preferred Language: Italian Communication Ability: Effective Billing Clerk Required: No Beliefs That Will Affect Care: None Current Living Situation: Spouse Feels Safe at Home: Yes Smoking Status: Never smoker Second Hand Exposure: Yes (parents smoked/ smoked) Hx Alcohol Use: Yes Alcohol type: wine Hx Substance Use: No Review of Systems See HPI for pertinent positives & negatives. and A total of 10 systems reviewed and were otherwise negative Physical Exam Vital Signs Vital Signs - 24 hr 10/30/18 11:37 10/30/18 13:47 10/30/18 15:11 Temperature 36.6 C Temperature Source Oral Sepsis Recent Fever Within 48 Hours No Sepsis New/Unexplained Change in Mental Status No Sepsis Action Taken by Nursing No Action Required Pulse Rate 68 Pulse Rate [Finger] 58 L 61 Respiratory Rate 20 20 15 Blood Pressure 202/89 H Blood Pressure [Right Arm] 198/92 H 150/69 H Blood Pressure Mean 126 Blood Pressure Mean [Right Arm] 127 96 Pulse Oximetry 97 95 99 Oxygen Delivery Method Room Air Room Air Room Air GENERAL: Sitting up in bed, moderate distress, tearful, holding right side. EYE EXAM: Normal conjunctiva. OROPHARYNX: no exudate, no erythema, lips, buccal mucosa, and tongue normal and mucous membranes are moist NECK: supple, no nuchal rigidity, no adenopathy, non-tender LUNGS: Clear to auscultation. Normal chest wall mechanics HEART: no murmurs, S1 normal and S2 normal ABDOMEN: abdomen soft, non-tender, normo-active bowel sounds, no masses, no rebound or guarding. BACK: Back is symmetrical on inspection and there is no deformity, no midline tenderness, no CVA tenderness. SKIN: no rashes and no bruising UPPER EXTREMITIES: upper extremities are grossly normal. LOWER EXTREMITIES: No pitting edema. NEURO EXAM: Normal sensorium, cranial nerves II-XII grossly intact, normal speech, no gross weakness of arms, no gross weakness of legs. Course 1215: Past medical records reviewed. The patient was evaluated in room A3. A complete history and physical examination was performed. 1550: I have re-evaluated the patient. 1555: The patient states that she is in more pain. She will be given more pain medication. 1606: The patient feels better. 1610: I reviewed the patient's case with Lucy Silveira. Consultations Consultation #1: 1610: I reviewed the patient's case with Lucy Silveira. Time: 16:10 Administered Medications Discontinued Medications Sodium Chloride (Nss 1000ml) 2,000 mls @ 999 mls/hr IV .Q2H1M ONE Stop: 10/30/18 17:17 Last Admin: 10/30/18 15:46 Dose: 999 mls/hr Documented by: [id number] Ketorolac Tromethamine (Toradol) 15 mg IV NOW ONE Stop: 10/30/18 13:52 Last Admin: 10/30/18 13:55 Dose: 15 mg Documented by: [id number] Morphine Sulfate (Morphine Sulfate) 6 mg IV NOW STA Stop: 10/30/18 12:30 Last Admin: 10/30/18 12:35 Dose: 6 mg Documented by: [id number] Morphine Sulfate (Morphine Sulfate) 4 mg IV NOW STA Stop: 10/30/18 13:52 Last Admin: 10/30/18 13:55 Dose: 4 mg Documented by: [id number] Morphine Sulfate (Morphine Sulfate) 6 mg IV NOW STA Stop: 10/30/18 15:56 Last Admin: 10/30/18 16:08 Dose: 6 mg Documented by: [id number] Ondansetron HCl (Zofran) 4 mg IV NOW STA Stop: 10/30/18 12:30 Last Admin: 10/30/18 12:35 Dose: 4 mg Documented by: [id number] Ondansetron HCl (Zofran) 4 mg IV NOW STA Stop: 10/30/18 13:52 Last Admin: 10/30/18 13:55 Dose: 4 mg Documented by: [id number] Medical Decision Making Differential Diagnosis Differential diagnosis Renal colic, appendicitis, diverticulitis, mesenteric ischemia, aortic pathology, infections, inflammatory bowel disease, PUD, biliary pathology, UTI, as well as others were entertained. Medical Records Attestation: I reviewed the patient's medical records. Home Medications Current Medication List: was personally reviewed by me Laboratory Data Attestation: I reviewed the patient's lab results. Result diagrams: 10/30/18 12:09 10/30/18 12:09 Lab Results 10/30/18 10/30/18 10/30/18 Range/Units 12:09 12:09 15:20 WBC 8.79 (4.8-10.8) K/uL RBC 4.27 (4.2-5.4) M/uL Hgb 13.4 (12.0-16.0) g/dL Hct 42.0 (37-47) % MCV 98.4 (80-100) fL MCH 31.4 (25-34) pg MCHC 31.9 L (32-36) g/dL RDW Std Deviation 48.3 H (36.4-46.3) fL RDW Coeff of Radha 13.6 (11.5-14.5) % Plt Count 240 (130-400) K/uL MPV 11.4 H (7.4-10.4) fL Immature Gran % (Auto) 0.1 % Neut % (Auto) 60.6 % Lymph % (Auto) 27.8 % [place] % (Auto) 9.6 % Eos % (Auto) 1.7 % Baso % (Auto) 0.2 % Immature Gran # (Auto) 0.01 (0.00-0.02) K/uL Neut # (Auto) 5.33 (1.4-6.5) K/uL Lymph # (Auto) 2.44 (1.2-3.4) K/uL [place] # (Auto) 0.84 H (0.11-0.59) K/uL Eos # (Auto) 0.15 (0-0.5) K/uL Baso # (Auto) 0.02 (0-0.2) K/uL Sodium 141 (136-145) mmol/L Potassium 3.6 (3.5-5.1) mmol/L Chloride 106 (98-107) mmol/L Carbon Dioxide 30 (21-32) mmol/L Anion Gap 5.0 (3-11) BUN 12 (7-18) mg/dl Creatinine 0.82 (0.6-1.2) mg/dl Est Cr Clr Drug Dosing 89.9 ml/min Est GFR ( Amer) 84.6 Est GFR (Non-Af Amer) 73.0 BUN/Creatinine Ratio 14.2 (10-20) Glucose 93 (70-99) mg/dl Calcium 8.5 (8.5-10.1) mg/dl Total Bilirubin 0.4 (0.2-1) mg/dl AST 20 (15-37) U/L ALT 14 (12-78) U/L Alkaline Phosphatase 125 H (45-117) U/L Total Protein 6.7 (6.4-8.2) gm/dl Albumin 3.3 L (3.4-5.0) gm/dl Globulin 3.4 (2.5-4.0) gm/dl Albumin/Globulin Ratio 1.0 (0.9-2) Lipase 122 (73-393) U/L Urine Color Yellow Urine Appearance Clear (Clear) Urine pH 6.0 (4.5-7.5) Ur Specific [place] 1.016 (1.000-1.030) Urine Protein Negative (Negative) Urine Glucose (UA) Negative (Negative) Urine Ketones Negative (Negative) Urine Blood 2+ H (Negative) Urine Nitrite Negative (Negative) Urine Bilirubin Negative (Negative) Urine Urobilinogen Negative (Negative) Ur Leukocyte Esterase 2+ H (Negative) Urine WBC (Auto) 5-10 H (0-5) /hpf Urine RBC (Auto) >30 H (0-4) /hpf U Hyaline Cast (Auto) 1-5 (0-5) /lpf U Epithel Cells (Auto) >30 H (0-5) /lpf Urine Bacteria (Auto) Negative (Negative) Imaging Data Radiologist's Impression: Radiology results as stated below per my review and the radiologist's interpretation: KUB HISTORY: Acute right-sided flank pain r flank pain COMPARISON: KUB 10/11/2017 FINDINGS: The bowel gas pattern is non-obstructive. Cholecystectomy. Surgical clips also noted about the epigastric region. Prior herniorrhaphy. There is no organomegaly. Renal shadows are partially obscured by bowel gas. No definite left nephrolithiasis identified. Nonobstructing calculi of the right kidney are seen measuring up to 3 mm. The previously noted 7 mm calculus of the superior po le right kidney is not identified. There are for radiodensities noted about the right abdomen about the L4 transverse process measuring up to 5 mm. Additionally, there is an unchanged vascular calcification noted at this level. Pelvic basin calcifications are likely vascular in origin. No pneumoperitoneum or pneumatosis. No fracture. IMPRESSION: 1. Right nephrolithiasis. 2. Several radiodensities are noted about the right L4 transverse process measuring up to 5 mm suggestive of ureteral calculi. Electronically signed by: Jorge Servin M.D. 10/30/2018 3:00 PM Dictated: 10/30/187 Transcribed: 10/30/18 145 renal/blad retro comp HISTORY: Flank pain r flank pain COMPARISON: None. FINDINGS: Right kidney: Maximum dimension 13 cm. Mild hydronephrosis. Nonobstructing lower pole renal calcification. Cortical scarring throughout right kidney. Left kidney: Maximum dimension 11.5 cm. 3 cm lower pole left renal cyst. No evidence for hydronephrosis. Normal corticomedullary differentiation and cortical thickness. Bladder: No bladder wall thickening. The bilateral ureteral jets were identified. IMPRESSION: 1. Mild right renal hydronephrosis. 2. Cortical scarring throughout the right kidney. 3. Nonobstructing lower pole renal calcification on the right. 4. 3 cm left renal cyst. The above report was generated using voice recognition software. It may contain grammatical, syntax or spelling errors. Electronically signed by: Steve Moise M.D. 10/30/2018 1:56 PM Dictated: 10/30/18 1354 Transcribed: 10/30/18 1354 Blood Pressure Blood Pressure Findings: Elevated blood pressure Blood Pressure Disposition: further management by hospitalist LINDA Narrative Patient is a 68-year-old female who presents the ER for severe flank pain with a recent lithotripsy performed on Tuesday by Dr. Becerra. Nausea vomiting and severe pain started at 10 AM. Patient took a Percocet with no improvement. Upo n arrival she was markedly hypertensive tearful and is moderate distress. IV was established blood work was obtained and showed no significant leukocytosis or anemia. BMP along with LFTs bilirubin and lipase is unremarkable. UA was slightly contaminated with multiple epithelial cells. Ultrasound shows mild hydro-and KUB confirms likely stones in the distal ureter at about L4. Patient was given 3 separate dose of IV narcotics along with Toradol still had significant pain. Discussed with the hospitalist for observation secondary to pain control. Impression & Plan Renal colic, Hypoalbuminemia, Flank pain, Hydronephrosis Discharge Plan Visit Data Chief Complaint: Kidney Stone Stated Complaint: KIDNEY STONE, RT SIDE ED Provider: Sumanth Curry Discharge Problem: Renal colic, Hypoalbuminemia, Flank pain, Hydronephrosis Patient Disposition: Home - Self-Care Forms Stand Alone Forms: [facility], Important Visit Information Prescriptions Prescriptions: No Action pseudoephedrine HCl [Sudafed 12 Hour] 120 mg Tablet Extended Release 120 mg PO Q12H PRN (Reason: sinus congestion) RF: 0 acetaminophen [Tylenol Arthritis Pain] 650 mg Tablet Extended Release 650 mg PO Q12H PRN (Reason: Pain) RF: 0 lorazepam 0.5 mg Tablet 0.5 mg PO TID PRN (Reason: Anxiety) RF: 0 metronidazole [MetroCream] 0.75 % Cream 1 applic TOPICAL BID RF: 0 loratadine [Claritin] 10 mg Tablet 10 mg PO HS RF: 0 cholecalciferol (vitamin D3) [Vitamin D3] 1,000 unit Tablet 1,000 unit PO HS RF: 0 guaifenesin [Mucinex] 1,200 mg Tablet Extended Release 12hr 1,200 mg PO DAILY PRN (Reason: Congestion) RF: 0 diclofenac sodium 1 % Gel 2 g TOPICAL TID RF: 0 cyanocobalamin (vitamin B-12) 1,000 mcg/mL Kit 1,000 mcg IM Q6M RF: 0 cannabidiol (CBD) extract 100 mg/mL Solution 4 mg PO BID RF: 0 hydrocodone-acetaminophen 5-325 mg tablet 1 tab PO Q4H PRN (Reason: Pain) RF: 0 Referrals Referrals: Steve Machado MD [Primary Care Provider] - The scribe's documentation has been prepared under my direction and personally reviewed by me in its entirety. I confirm that the note above accurately refl ects all work, treatment, procedures, and medical decision making performed by me.
[2018-10-30] MEDS ORDERED: LORazepam 0.5 MG TAB PO PRN (18:15)
[2018-10-30] MEDS: LORATADINE 10 MG TAB PO SCH (20:42)
[2018-10-30] MEDS: ONDANSETRON INJ 2 MG/ML 2 ML VIAL IV PRN (20:43)
[2018-10-30] MEDS: HYDROmorphone INJ 0.5 MG/0.5 ML SYR IV PRN (20:44)
[2018-10-31] MEDS: HYDROmorphone INJ 0.5 MG/0.5 ML SYR IV PRN ×3 (03:43→13:25)
[2018-10-31 07:07] LABS: Basophils # (auto) 0.01 K/uL (0-0.2); Basophils % (auto) 0.1 %; Eosinophils # (auto) 0.08 K/uL (0-0.5); Eosinophils % (auto) 0.7 %; Hematocrit (blood only) 37.5 % (37-47); Hemoglobin 11.7 g/dL (12.0-16.0); Immature Granulocytes # (auto) 0.02 K/uL (0.00-0.02); Immature Granulocytes % (auto) 0.2 %; Lymphocytes # (auto) 1.53 K/uL (1.2-3.4); Lymphocytes % (auto) 14.2 %; Mean Corpuscular Hgb Conc 31.2 g/dL (32-36); Mean Corpuscular Volume 97.4 fL (80-100); Mean Platelet Volume 11.1 fL (7.4-10.4); Monocytes # (auto) 1.15 K/uL (0.11-0.59); Monocytes % (auto) 10.6 %; Neutrophils # (auto) 8.01 K/uL (1.4-6.5); Neutrophils % (auto) 74.2 %; Platelet Count 218 K/uL (130-400); RDW Coefficient of Variation 13.5 % (11.5-14.5); RDW Standard Deviation 48.3 fL (36.4-46.3); Red Blood Count 3.85 M/uL (4.2-5.4)
[2018-10-31 07:39] LABS: BUN Creatinine Ratio 11.5 (10-20); Calcium 7.9 mg/dl (8.5-10.1); Est GFR (African American) 52.9; Est GFR (Non-African American) 45.6
[2018-10-31] MEDS: OXYCODONE HCL IR 5 MG TAB (IMMEDIATE RELEASE) PO PRN ×2 (07:50→15:59)
[2018-10-31] MEDS: SODIUM CHLORIDE 0.9% 1000ML 1,000 ML IV SCH ×2 (10:58→20:07)
--- NOTE | 2018-10-31 11:34 | Urology Consultation ---
Date of Consultation October 31, 2018 Assessment & Plan (1) Renal colic: 68yo F with ~5mm right prox ureteral stone, mild hydro, persistent renal colic. Failed ESWL. Pt experiencing persistent right renal colic, radiating to groin in waves. 10/10, requiring IV pain control ATC. She is visibly uncomfortable, however nontoxic on exam. Unfortunately patient did have full breakfast this AM (one slice of swedish toast) approx 9AM. Pt eligible for procedure after 5pm per Anesthesia. Findings reviewed with Dr. George. Given her persistent renal colic in the context of an obstructing 5mm R ureteral stone, will proceed with OR for cysto, Right retrograde pyelogram, right ureteral stent placement, possible ureteroscopy, laser litho, stone basketing depending on findings. Risks and benefits to be reviewed with patient by Dr. George. OR and Anesthesia team notified. Preoperative CXR and EKG completed. Will cover with IV Ciprofloxacin preoperatively. History of Present Illness Reason for Consultation: obstructing stone Requesting Physician: Dr. Orozco Attending Physician: Patrick Orozco MD History of Present Illness 68yo F with nephrolithiasis, presents to [facility] ED yesterday for intractable pain s/p elective ESWL for 7mm Right renal stone on 10/27. Pt states she did well through the weekend, then developed severe pain on Tuesday. Described as sharp, radiating to groin, with associated nausea/vomiting. Pt denies fever/chills. Some nausea/denies vomiting today. Denies LUTS, gross hematuria. Requiring IV pain control, rating pain 10/10 between doses. Visibly uncomfortable on exam. Afebrile. Allergies Allergy/AdvReac Type Severity Reaction Status Date / Time adhesive Allergy Mild RED RASH Verified 10/30/18 13:57 bee venom protein (honey bee) Allergy Mild severe Verified 10/30/18 13:57 swelling, heat at bee sting site No Known Drug Allergies Allergy Unknown . Verified 10/30/18 13:57 Dust Allergy Mild sinusitis Uncoded 10/30/18 13:57 Home Medications Home Medications Medication Instructions Recorded Confirmed Type acetaminophen [Tylenol Arthritis 650 mg PO Q12H PRN 10/25/18 10/30/18 History Pain] cannabidiol (CBD) extract 4 mg PO BID 10/25/18 10/30/18 History cholecalciferol (vitamin D3) 1,000 unit PO HS 10/25/18 10/30/18 History [Vitamin D3] cyanocobalamin (vitamin B-12) 1,000 mcg IM Q6M 10/25/18 10/30/18 History diclofenac sodium 2 g TOPICAL TID 10/25/18 10/30/18 History guaifenesin [Mucinex] 1,200 mg PO DAILY PRN 10/25/18 10/30/18 History loratadine [Claritin] 10 mg PO HS 10/25/18 10/30/18 History lorazepam 0.5 mg PO TID PRN 10/25/18 10/30/18 History metronidazole [MetroCream] 1 applic TOPICAL BID 10/25/18 10/30/18 History pseudoephedrine HCl [Sudafed 12 120 mg PO Q12H PRN 10/25/18 10/30/18 History Hour] hydrocodone-acetaminophen 1 tab PO Q4H PRN 10/30/18 10/30/18 History Patient History Medical History Renal colic (Acute) Anxiety (Chronic) Depression (Chronic) History of sleep apnea (Chronic) "resolved with weight loss s/p gastric bypass" History of asthma (Chronic) History of kidney stones (Chronic) Osteoarthritis (Chronic) Rosacea (Chronic) Anxiety Asthma Albuterol inhaler rarely used, no daily inhaler. Kidney stones Osteoarthritis Sleep apnea hx of, no longer had gastric bypass and repeat sleep study was negative. Pt has gained "some" weight back. Surgical History History of bilateral tubal ligation History of cholecystectomy History of colonoscopy History of dilatation and curettage History of gastric bypass History of left breast biopsy benign History of lithotripsy History of total hysterectomy with bilateral salpingo-oophorectomy (BSO) History of umbilical hernia repair x3 History of wisdom tooth extraction Family History Brother Family history of diabetes mellitus Grandmother (Paternal) Family history of diabetes mellitus Sister Family history of diabetes mellitus Family/Other Family history of diabetes mellitus cousins Other No family history of adverse response to anesthesia Social History Preferred Language: Kyrgyz Communication Ability: Effective Pss Delivery Professional Required: No Beliefs That Will Affect Care: None Current Living Situation: Spouse Other Information That Helps Us Care for You: No Feels Safe at Home: Yes Safety Concerns: Feels Safe At This Time Smoking Status: Never smoker Do You Dip or Chew Tobacco: No Second Hand Exposure: Yes (parents smoked/ smoked) Hx Alcohol Use: Yes Alcohol type: wine Hx Substance Use: No Review of Systems Review of Systems: Denies fever, chills. Some nausea, no vomiting. Denies chest pain Denies shortness of breath. Denies urgency/frequency. + Right flank pain, right groin pain radiating Physical Exam Physical Exam: A&Ox3 RRR abd soft, some tenderness to right side no guarding no LE edema Results & Data Vital Signs (Past 12 Hours) Vital Signs Temp Pulse Resp BP Pulse Ox 10/31/18 07:40 37.1 C 82 18 151/83 H 96 Laboratory Results Laboratory Results - last 48 hr 10/30/18 10/30/18 10/30/18 12:09 12:09 15:20 WBC 8.79 RBC 4.27 Hgb 13.4 Hct 42.0 MCV 98.4 MCH 31.4 MCHC 31.9 L RDW Std Deviation 48.3 H RDW Coeff of Radha 13.6 Plt Count 240 MPV 11.4 H Immature Gran % (Auto) 0.1 Neut % (Auto) 60.6 Lymph % (Auto) 27.8 [place] % (Auto) 9.6 Eos % (Auto) 1.7 Baso % (Auto) 0.2 Immature Gran # (Auto) 0.01 Neut # (Auto) 5.33 Lymph # (Auto) 2.44 [place] # (Auto) 0.84 H Eos # (Auto) 0.15 Baso # (Auto) 0.02 Sodium 141 Potassium 3.6 Chloride 106 Carbon Dioxide 30 Anion Gap 5.0 BUN 12 Creatinine 0.82 Est Cr Clr Drug Dosing 89.9 Est GFR ( Amer) 84.6 Est GFR (Non-Af Amer) 73.0 BUN/Creatinine Ratio 14.2 Glucose 93 Calcium 8.5 Total Bilirubin 0.4 AST 20 ALT 14 Alkaline Phosphatase 125 H Total Protein 6.7 Albumin 3.3 L Globulin 3.4 Albumin/Globulin Ratio 1.0 Lipase 122 Urine Color Yellow Urine Appearance Clear Urine pH 6.0 Ur Specific [place] 1.016 Urine Protein Negative Urine Glucose (UA) Negative Urine Ketones Negative Urine Blood 2+ H Urine Nitrite Negative Urine Bilirubin Negative Urine Urobilinogen Negative Ur Leukocyte Esterase 2+ H Urine WBC (Auto) 5-10 H Urine RBC (Auto) >30 H U Hyaline Cast (Auto) 1-5 U Epithel Cells (Auto) >30 H Urine Bacteria (Auto) Negative 10/31/18 10/31/18 06:54 06:54 WBC 10.80 RBC 3.85 L Hgb 11.7 L Hct 37.5 MCV 97.4 MCH 30.4 MCHC 31.2 L RDW Std Deviation 48.3 H RDW Coeff of Radha 13.5 Plt Count 218 MPV 11.1 H Immature Gran % (Auto) 0.2 Neut % (Auto) 74.2 Lymph % (Auto) 14.2 [place] % (Auto) 10.6 Eos % (Auto) 0.7 Baso % (Auto) 0.1 Immature Gran # (Auto) 0.02 Neut # (Auto) 8.01 H Lymph # (Auto) 1.53 [place] # (Auto) 1.15 H Eos # (Auto) 0.08 Baso # (Auto) 0.01 Sodium 143 Potassium 4.0 Chloride 108 H Carbon Dioxide 30 Anion Gap 5.0 BUN 14 Creatinine 1.21 H D Est Cr Clr Drug Dosing 61.0 Est GFR ( Amer) 52.9 Est GFR (Non-Af Amer) 45.6 BUN/Creatinine Ratio 11.5 Glucose 104 H Calcium 7.9 L Total Bilirubin AST ALT Alkaline Phosphatase Total Protein Albumin Globulin Albumin/Globulin Ratio Lipase Urine Color Urine Appearance Urine pH Ur Specific [place] Urine Protein Urine Glucose (UA) Urine Ketones Urine Blood Urine Nitrite Urine Bilirubin Urine Urobilinogen Ur Leukocyte Esterase Urine WBC (Auto) Urine RBC (Auto) U Hyaline Cast (Auto) U Epithel Cells (Auto) Urine Bacteria (Auto)
--- NOTE | 2018-10-31 12:11 | XRay Report ---
KUB HISTORY: Follow up study in a patient with nephrolithiasis follow renal stones COMPARISON: KUB 10/30/2018 FINDINGS: The bowel gas pattern is non-obstructive. There is no organomegaly. Renal shadows aren't s ecured by bowel gas. Punctate right nephrolithiasis redemonstrated. 4 mm radiodensity inferior to the right transverse process is noted which is suggestive of probable fecal debris with the previously d escribed cluster of calcifications no longer identified. Multiple pelvic basin calcifications are aga in seen suggestive of probable phleboliths. Herniorrhaphy changes. No pneumoperitoneum or pneumatosis . No fracture. IMPRESSION: 1. Right nephrolithiasis redemonstrated. 2. Previously questioned calculi of the right ureter are not definitively seen on today's study. Plea se note that the study is limited secondary to overlying bowel gas. Electronically signed by: Jorge Servin M.D. 10/31/2018 12:10 PM
[2018-10-31] MEDS ORDERED: MIDAZOLAM HCL 1 MG/ML 2ML VIAL ONE (14:31)
[2018-10-31] MEDS ORDERED: fentaNYL citrate 100 MCG/2 ML VIAL ONE ×2 (14:31→17:58)
[2018-10-31] MEDS ORDERED: ONDANSETRON INJ 2 MG/ML 2 ML VIAL ONE ×2 (14:33→17:59)
[2018-10-31] MEDS ORDERED: PROPOFOL IV EMULSION 10 MG/ML 20 ML VIAL IV ONE (14:33)
[2018-10-31] MEDS ORDERED: LIDOCAINE HCL 2% 2 ML VIAL/AMP(20MG/ML) INFIL ONE (14:33)
[2018-10-31] MEDS ORDERED: CIPROFLOXACIN 400 MG/200 ML BAG IV SCH (15:00)
[2018-10-31] MEDS: ACETAMINOPHEN 325 MG TAB PO PRN (15:59)
[2018-10-31] MEDS: ONDANSETRON INJ 2 MG/ML 2 ML VIAL IV PRN (15:59)
--- NOTE | 2018-10-31 16:13 | Hospitalist Progress Note ---
Date of Service October 31, 2018 Assessment & Plan (1) Renal colic: renal colic secondary to suspected obstructive right ureteral calculi Patient with intractable right flank pain, nausea, and vomiting that started today - s/p lithotripsy on Tuesday10/27/18. -KUB 10/30/18: Right nephrolithiasis; Several radiodensities are noted about the right L4 transverse process measuring up to 5 mm suggestive of ureteral calculi. - IV pain control with Dilaudid, acetaminophen, IV Zofran for nausea -10/31/18: Patient noted to have mildly elevated body temperature of 38.1 C. Patient got preop ciprofloxacin antibiotic as urology plan is "Given her persistent renal colic in the context of an obstructing 5mm R ureteral stone, will proceed with OR for cysto, Right retrograde pyelogram, right ureteral stent placement, possible ureteroscopy, laser litho, stone basketing depending on findings" -blood cultures ordered prior to going to the OR (2) Anxiety: Pt managing her depression and anxiety at home with CBD oil - will hold for now - Ordered home prn Ativan (3) Rosacea: Pt on multiple topical therapies at home - declines to have them ordered while admitted. (4) Seasonal allergies: - Continue home loratadine 10 mg daily Subjective Patient noted to have mildly elevated body temperature of 38.1 C. Patient got preop ciprofloxacin antibiotic as urology plan is "Given her persistent renal colic in the context of an obstructing 5mm R ureteral stone, will proceed with OR for cysto, Right retrograde pyelogram, right ureteral stent placement, possible ureteroscopy, laser litho, stone basketing depending on findings" Patient awaiting to go to operating room today patient's right lower back and right lower abdomen pain is controlled because she got pain medication. no vomiting. breathing on room air. no chest pain. no shortness of breath. breathing on room air. Physical Exam Constitutional: + obese Eyes: PERRL, conjunctivae normal, anicteric sclerae EOM intact bilaterally ENMT: external ear and nose normal, oropharynx normal Neck: normal visual inspection Respiratory: normal respiratory effort, lungs clear to auscultation Gastrointestinal (Abdomen): normal bowel sounds, soft, nontender, no hepatosplenomegaly Musculoskeletal: Head/Neck/Chest: normocephalic and head atraumatic Neurologic: PERRL, EOMI, accommodation nl, no face palsy, no dysarthria CN's II-XI intact bilaterally Psychiatric: A+Ox3, euthymic affect Results & Data Vital Signs (Past 12 Hours) Vital Signs Temp Pulse Resp BP Pulse Ox 10/31/18 15:50 38.1 C H 82 17 150/82 H 94 10/31/18 07:40 37.1 C 82 18 151/83 H 96
[2018-10-31] MEDS ORDERED: IOTHALAMATE MEGLUMINE II 17.2% 250 ML VIAL ONE (17:10)
--- NOTE | 2018-10-31 17:30 | Anesthesiology Consultation ---
Date of Service October 31, 2018 Assessment & Plan Chart Review Chart Review: Acceptable Risk for Surgery and Patient NOT seen in Pre Admission Testing Consults Requested none History Surgery Operation Date: 10/31/18 17:00 Proposed Procedures p Cystoscopy, Right Retrograde Pyelogram, Possible Ureteroscopy, Laser Lithotripsy with Basket Stone Extraction; Stent Placement - Daniel George MD Height/Weight Height: 5 ft 4 in Weight: 138.1 kg Allergies Allergy/AdvReac Type Severity Reaction Status Date / Time adhesive Allergy Mild RED RASH Verified 10/30/18 13:57 bee venom protein (honey bee) Allergy Mild severe Verified 10/30/18 13:57 swelling, heat at bee sting site No Known Drug Allergies Allergy Unknown . Verified 10/30/18 13:57 Dust Allergy Mild sinusitis Uncoded 10/30/18 13:57 Medications Home Medications Medication Instructions Recorded Confirmed Last Taken acetaminophen [Tylenol Arthritis 650 mg PO Q12H PRN 10/25/18 10/30/18 10/30/18 07:30 Pain] 2 tablets cannabidiol (CBD) extract 4 mg PO BID 10/25/18 10/30/18 10/30/18 cholecalciferol (vitamin D3) 1,000 unit PO HS 10/25/18 10/30/18 10/29/18 [Vitamin D3] cyanocobalamin (vitamin B-12) 1,000 mcg IM Q6M 10/25/18 10/30/18 04/25/18 diclofenac sodium 2 g TOPICAL TID 10/25/18 10/30/18 10/30/18 guaifenesin [Mucinex] 1,200 mg PO DAILY PRN 10/25/18 10/30/18 10/30/18 loratadine [Claritin] 10 mg PO HS 10/25/18 10/30/18 10/29/18 lorazepam 0.5 mg PO TID PRN 10/25/18 10/30/18 10/27/18 05:00 metronidazole [MetroCream] 1 applic TOPICAL BID 10/25/18 10/30/18 10/30/18 pseudoephedrine HCl [Sudafed 12 120 mg PO Q12H PRN 10/25/18 10/30/18 Unknown Hour] hydrocodone-acetaminophen 1 tab PO Q4H PRN 10/30/18 10/30/18 10/30/18 10:00 Active Medications Generic Name Dose Route Start Last Admin Trade Name Freq PRN Reason Stop Dose Admin Acetaminophen 325 mg 10/31/18 07:15 10/31/18 15:59 Tylenol PO 11/30/18 07:14 325 mg Q4H PRN Administration fever or mild pain Hydromorphone HCl 0.5 mg 10/31/18 07:16 10/31/18 13:25 Dilaudid IV 11/13/18 18:14 0.5 mg Q4H PRN Administration Severe Pain Sodium Chloride 1,000 mls @ 125 mls/hr 10/31/18 10:45 10/31/18 10:58 Nss 1000ml IV 11/30/18 10:44 125 mls/hr .Q8H MARÍA Administration Loratadine 10 mg 10/30/18 21:00 10/30/18 20:42 Claritin PO 11/29/18 20:59 10 mg HS MARÍA Administration Ondansetron HCl 4 mg 10/30/18 16:43 10/31/18 15:59 Zofran IV 11/29/18 16:42 4 mg Q6H PRN Administration Nausea Oxycodone HCl 5 mg 10/31/18 07:16 10/31/18 15:59 Roxicodone Immediate Rel PO 11/14/18 07:15 5 mg Q6H PRN Administration moderate to severe pain NPO Date Last Intake of Fluids: 10/31/18 Time Last Intake of Fluids: 09:00 Date Last Intake of Solids: 10/31/18 Time Last Intake of Solids: 09:00 Past Medical History Medical History Renal colic (Acute) Anxiety (Chronic) Depression (Chronic) History of sleep apnea (Chronic) "resolved with weight loss s/p gastric bypass" History of asthma (Chronic) History of kidney stones (Chronic) Osteoarthritis (Chronic) Rosacea (Chronic) Anxiety Asthma Albuterol inhaler rarely used, no daily inhaler. Kidney stones Osteoarthritis Sleep apnea hx of, no longer had gastric bypass and repeat sleep study was negative. Pt has gained "some" weight back. Past Family History Family History Brother Family history of diabetes mellitus Grandmother (Paternal) Family history of diabetes mellitus Sister Family history of diabetes mellitus Family/Other Family history of diabetes mellitus cousins Other No family history of adverse response to anesthesia Past Surgical History Surgical History History of bilateral tubal ligation History of cholecystectomy History of colonoscopy History of dilatation and curettage History of gastric bypass History of left breast biopsy benign History of lithotripsy History of total hysterectomy with bilateral salpingo-oophorectomy (BSO) History of umbilical hernia repair x3 History of wisdom tooth extraction Social History Smoking Status: Never smoker Do You Dip or Chew Tobacco: No Hx Alcohol Use: Yes Alcohol type: wine alcohol intake frequency: holidays/special occasions only Hx Substance Use: No substance use type: does not use Physical Exam Vital Signs Last Vital Signs Temp 37.6 C H 10/31/18 16:59 Pulse 82 10/31/18 16:59 Resp 16 10/31/18 16:59 BP 152/64 H 10/31/18 16:59 Pulse Ox 92 10/31/18 16:59 Testing Laboratory Results 10/31/18 06:54 10/31/18 06:54 Urine Color Yellow 10/30/18 15:20 Urine Appearance Clear (Clear) 10/30/18 15:20 Urine pH 6.0 (4.5-7.5) 10/30/18 15:20 Ur Specific [place] 1.016 (1.000-1.030) 10/30/18 15:20 Urine Protein Negative (Negative) 10/30/18 15:20 Urine Glucose (UA) Negative (Negative) 10/30/18 15:20 Urine Ketones Negative (Negative) 10/30/18 15:20 Urine Nitrite Negative (Negative) 10/30/18 15:20 Ur Leukocyte Esterase 2+ (Negative) H 10/30/18 15:20 Urine WBC (Auto) 5-10 /hpf (0-5) H 10/30/18 15:20 Urine RBC (Auto) >30 /hpf (0-4) H 10/30/18 15:20 U Hyaline Cast (Auto) 1-5 /lpf (0-5) 10/30/18 15:20 U Epithel Cells (Auto) >30 /lpf (0-5) H 10/30/18 15:20 Urine Bacteria (Auto) Negative (Negative) 10/30/18 15:20
--- NOTE | 2018-10-31 17:31 | Operative Report ---
Post Operative Report Pre & Post Diagnosis Operation Date: 10/31/18 17:00 Preoperative diagnosis: Right ureteral stone with intractable colic. Postoperative diagnosis: Same, mid ureteral Steinstrasse. Procedure: Cystoscopy, right retrograde pyelography, right semirigid ureteroscopy with laser lithotripsy, basket stone extraction and ureteral stent placement. Surgeon: Dr. Daniel George. Rehab Services Aide: None. Anesthesia: General anesthesia with endotracheal intubation. Drains left in place: 6 [place] 22 cm right-sided double-J ureteral stent in good position on fluoroscopy. Specimen sent to pathology: Right ureteral stone for chemical analysis. Findings: Good stent position on fluoroscopy, right mid ureteral Steinstrasse, relatively radiolucent stones. Procedure Operation Date: 10/31/18 17:00 Brief history: Patient is a pleasant 68-year-old female who is underwent a right-sided shockwave lithotripsy with some fragmentation of her stone but a 5 mm fragment has progressed into the ureter and is causing intra ctable colic. She is here today for acute intervention to manage her disease. Please see urology consultation for further details. She is covered with intravenous ciprofloxacin and SCDs were used for DVT prophylaxis. Procedure: Patient was properly identified and brought into the operative suite after identification of appropriate consent of the chart. General anesthesia was initiated patient was prepped and draped in the standard fashion for this procedure. Full timeout procedure was followed. 22 [place] rigid cystoscope was passed into the bladder under direct visualization and bladder was surveyed in its entirety demonstrating no intravesical lesions, papillary masses or calculi. Right-sided ureteral orifice was addressed using an open-ended catheter and gentle retrograde pyelography was performed. This demonstrated a normal distal ureter with a filling defect and proximal hydroureteronephrosis. This is consistent with the patient's preoperative KUB and imaging. Sensor tip wire was advanced to the level of the right kidney and kept until the end of the case as a safety wire. A semirigid ureteroscope was advanced into the right distal ureter without the need for dilation. This was advanced to the level of the vessels were stones were encountered within the ureter. These were fragmented into smaller pieces using a 200 m fiber. They were poorly visualized on automotive engineer imaging. 0 tip basket was used to remove the ureteral stones and ureteroscope was replaced. More stones were encountered within the ureter. This was continued until a mid ureteral Steinstrasse was appreciated ureteroscopically. Laser lithotripsy and basket stone extraction proceeded until the ureter was clear. After this was complete the semirigid ureteroscope was able to be advanced up to the level of the right renal pelvis with no further stones being encountered. Complete exit ureteroscopy was performed demonstrating no ureteral injuries, tears, tumors or residual stone. Expected mid ureteral edema at the site of stone impaction was noted. Cystoscope was backloaded over the safety wire and a 6 [place] 22 cm double-J ureteral stent was advanced with a full coil being present at the level of the kidney and a full coil present within the bladder. Hydronephrotic drip was appreciated. Bladder was drained and cystoscope was removed. Belladonna and opium suppository was provided for additional postoperative analgesia. Anesthesia was reversed and patient was transferred to the recovery room in stable condition. Surgeon Daniel George MD Rehab Services Aide None Estimated Blood Loss 0 Findings Consistent with Post-Op Diagnosis Specimens Right ureteral stones for chemical analysis Description of Procedure Cystoscopy, right retrograde pyelography, right semirigid ureteroscopy with laser lithotripsy, basket stone extraction and ureteral stent placement. I attest to the content of the Intraoperative Record and any orders documented therein. Any exceptions are noted below.
[2018-10-31] MEDS ORDERED: fentaNYL citrate 100 MCG/2 ML VIAL IV PRN (17:34)
[2018-10-31] MEDS ORDERED: ATROPINE SULFATE 0.1 MG/ML 10ML SYR IV PRN (17:34)
[2018-10-31] MEDS ORDERED: ePHEDrine sulfate 50 MG/ML AMP IV PRN (17:34)
[2018-10-31] MEDS ORDERED: ROCURONIUM BROMIDE 10 MG/ML 5 ML VIAL ONE ×4 (17:59)
[2018-10-31] MEDS ORDERED: GLYCOPYRROLATE 0.2 MG/ML VIAL ONE (17:59)
[2018-10-31] MEDS ORDERED: NEOSTIGMINE METHYLSULFATE 5 MG/5 ML SYR ONE (17:59)
[2018-10-31] MEDS ORDERED: BELLADONNA/OPIUM SUPP 60 MG SUPP PR ONE (18:06)
[2018-10-31] MEDS ORDERED: BELLADONNA/OPIUM SUPP 60 MG SUPP PR PRN (18:12)
[2018-10-31] MEDS ORDERED: PHENAZOPYRIDINE HCL 200 MG TAB PO PRN (18:17)
--- NOTE | 2018-10-31 18:39 | Fluoroscopy Report ---
FL retrograde includes kub CLINICAL HISTORY: RT CYSTO/LASERlithotripsy COMPARISON STUDY: FLUOROSCOPY TIME: 1 minute NUMBER OF FLUOROSCOPIC IMAGES: 3 FINDINGS: Image intensifier usage for laser lithotripsy and stent placement IMPRESSION: Image intensifier usage for laser lithotripsy and stent placement The above report was generated using voice recognition software. It may contain grammatical, syntax or spelling errors. Electronically signed by: Steve Moise M.D. 10/31/2018 6:38 PM
--- NOTE | 2018-10-31 19:17 | Anesthesiology Progress Note ---
Date of Service October 31, 2018 Anesthesia Post Procedure Vital Signs Vital Signs: Temp Pulse Pulse Resp BP Pulse Ox 10/31/18 19:05 70 15 140/67 98 10/31/18 18:55 36.5 C 73 21 159/72 H 98 10/31/18 18:45 78 15 155/75 H 98 10/31/18 18:38 36.6 C 86 15 166/89 H 96 10/31/18 16:59 37.6 C H 82 16 152/64 H 92 10/31/18 15:50 38.1 C H 82 17 150/82 H 94 10/31/18 07:40 37.1 C 82 18 151/83 H 96 10/30/18 22:45 36.8 C 82 20 156/71 H 98 Pain Intensity Right Flank: Pain Intensity: 6 Transfer of Care Handoff Completed per policy Notes Mental Status: alert / awake / arousable Patient Amnestic to Procedure: Yes Nausea / Vomiting: adequately controlled Pain: adequately controlled Airway Patency, RR, SpO2: stable & adequate BP & HR: stable & adequate Hydration State: stable & adequate Anesthetic Complications: no major complications apparent and Pt Satisfied with anesthetic care
[2018-10-31] MEDS: LORATADINE 10 MG TAB PO SCH (20:11)
[2018-11-01] MEDS: SODIUM CHLORIDE 0.9% 1000ML 1,000 ML IV SCH ×2 (04:19→11:42)
[2018-11-01] MEDS: ACETAMINOPHEN 325 MG TAB PO PRN ×2 (04:21→08:23)
[2018-11-01 08:03] LABS: Basophils # (auto) 0.02 K/uL (0-0.2); Basophils % (auto) 0.2 %; Eosinophils # (auto) 0.29 K/uL (0-0.5); Eosinophils % (auto) 3.2 %; Hematocrit (blood only) 34.9 % (37-47); Hemoglobin 10.8 g/dL (12.0-16.0); Immature Granulocytes # (auto) 0.01 K/uL (0.00-0.02); Immature Granulocytes % (auto) 0.1 %; Lymphocytes # (auto) 1.87 K/uL (1.2-3.4); Lymphocytes % (auto) 20.3 %; Mean Corpuscular Hgb Conc 30.9 g/dL (32-36); Mean Corpuscular Volume 97.2 fL (80-100); Mean Platelet Volume 10.8 fL (7.4-10.4); Monocytes # (auto) 0.83 K/uL (0.11-0.59); Neutrophils # (auto) 6.18 K/uL (1.4-6.5); Neutrophils % (auto) 67.2 %; Platelet Count 192 K/uL (130-400); RDW Coefficient of Variation 13.6 % (11.5-14.5); RDW Standard Deviation 48.1 fL (36.4-46.3); Red Blood Count 3.59 M/uL (4.2-5.4)
[2018-11-01 08:19] LABS: Albumin Level 2.6 gm/dl (3.4-5.0); BUN Creatinine Ratio 12.9 (10-20); Calcium 7.8 mg/dl (8.5-10.1); Est GFR (African American) 63.5; Est GFR (Non-African American) 54.8; Potassium 3.7 mmol/L (3.5-5.1)
[2018-11-01 08:22] LABS: Albumin Globulin Ratio 0.9 (0.9-2); Bilirubin,Total 0.5 mg/dl (0.2-1); Globulin 3.1 gm/dl (2.5-4.0); Total Protein 5.7 gm/dl (6.4-8.2)
--- NOTE | 2018-11-01 09:35 | Urology Progress Note ---
Date of Service November 01, 2018 Assessment & Plan (1) Renal colic: 68yo F POD #1 s/p cysto, Right URS/LL, Right ureteral stent placement Pt doing very well today, tolerating stent. No new complaints. Pt ready for discharge from standpoint with ciprofloxacin 500mg BID x3days, flomax, pain control. Will arrange for outpatient stent removal in 1-2 weeks. Thank you for allowing us to participate in the acute care of Ms. Worrell. Subjective POD #1 s/p cysto, Right URS, LL, Right ureteral stent placement. Pt doing very well this AM. Pain much improved. Tolerating stent without issue. Denies LUTS Acknowledges hematuria, to be expected. Poor sleep last night but mostly due to environment. Tolerating PO diet. Able to ambulate to the bathroom without assistance. Labs reviewed- Cr stablized. Review of Systems Review of Systems: All systems reviewed & are unremarkable except as noted in HPI & below Physical Exam Physical Exam: A&Ox3 RRR abd soft, nontender no LE edema Results & Data Vital Signs (Past 12 Hours) Vital Signs Temp Pulse Pulse Resp BP Pulse Ox 11/01/18 07:49 36.6 C 68 16 122/80 97 11/01/18 03:22 36.7 C 67 16 128/73 98 10/31/18 22:25 36.6 C 71 18 100/60 91 Laboratory Results Laboratory Results - last 48 hr 10/30/18 10/30/18 10/30/18 12:09 12:09 15:20 WBC 8.79 RBC 4.27 Hgb 13.4 Hct 42.0 MCV 98.4 MCH 31.4 MCHC 31.9 L RDW Std Deviation 48.3 H RDW Coeff of Radha 13.6 Plt Count 240 MPV 11.4 H Immature Gran % (Auto) 0.1 Neut % (Auto) 60.6 Lymph % (Auto) 27.8 [place] % (Auto) 9.6 Eos % (Auto) 1.7 Baso % (Auto) 0.2 Immature Gran # (Auto) 0.01 Neut # (Auto) 5.33 Lymph # (Auto) 2.44 [place] # (Auto) 0.84 H Eos # (Auto) 0.15 Baso # (Auto) 0.02 Sodium 141 Potassium 3.6 Chloride 106 Carbon Dioxide 30 Anion Gap 5.0 BUN 12 Creatinine 0.82 Est Cr Clr Drug Dosing 89.9 Est GFR ( Amer) 84.6 Est GFR (Non-Af Amer) 73.0 BUN/Creatinine Ratio 14.2 Glucose 93 Calcium 8.5 Total Bilirubin 0.4 AST 20 ALT 14 Alkaline Phosphatase 125 H Total Protein 6.7 Albumin 3.3 L Globulin 3.4 Albumin/Globulin Ratio 1.0 Lipase 122 Urine Color Yellow Urine Appearance Clear Urine pH 6.0 Ur Specific [place] 1.016 Urine Protein Negative Urine Glucose (UA) Negative Urine Ketones Negative Urine Blood 2+ H Urine Nitrite Negative Urine Bilirubin Negative Urine Urobilinogen Negative Ur Leukocyte Esterase 2+ H Urine WBC (Auto) 5-10 H Urine RBC (Auto) >30 H U Hyaline Cast (Auto) 1-5 U Epithel Cells (Auto) >30 H Urine Bacteria (Auto) Negative 10/31/18 10/31/18 11/01/18 06:54 06:54 07:50 WBC 10.80 9.20 RBC 3.85 L 3.59 L Hgb 11.7 L 10.8 L Hct 37.5 34.9 L MCV 97.4 97.2 MCH 30.4 30.1 MCHC 31.2 L 30.9 L RDW Std Deviation 48.3 H 48.1 H RDW Coeff of Radha 13.5 13.6 Plt Count 218 192 MPV 11.1 H 10.8 H Immature Gran % (Auto) 0.2 0.1 Neut % (Auto) 74.2 67.2 Lymph % (Auto) 14.2 20.3 [place] % (Auto) 10.6 9.0 Eos % (Auto) 0.7 3.2 Baso % (Auto) 0.1 0.2 Immature Gran # (Auto) 0.02 0.01 Neut # (Auto) 8.01 H 6.18 Lymph # (Auto) 1.53 1.87 [place] # (Auto) 1.15 H 0.83 H Eos # (Auto) 0.08 0.29 Baso # (Auto) 0.01 0.02 Sodium 143 Potassium 4.0 Chloride 108 H Carbon Dioxide 30 Anion Gap 5.0 BUN 14 Creatinine 1.21 H D Est Cr Clr Drug Dosing 61.0 Est GFR ( Amer) 52.9 Est GFR (Non-Af Amer) 45.6 BUN/Creatinine Ratio 11.5 Glucose 104 H Calcium 7.9 L Total Bilirubin AST ALT Alkaline Phosphatase Total Protein Albumin Globulin Albumin/Globulin Ratio Lipase Urine Color Urine Appearance Urine pH Ur Specific [place] Urine Protein Urine Glucose (UA) Urine Ketones Urine Blood Urine Nitrite Urine Bilirubin Urine Urobilinogen Ur Leukocyte Esterase Urine WBC (Auto) Urine RBC (Auto) U Hyaline Cast (Auto) U Epithel Cells (Auto) Urine Bacteria (Auto) 11/01/18 07:50 WBC RBC Hgb Hct MCV MCH MCHC RDW Std Deviation RDW Coeff of Radha Plt Count MPV Immature Gran % (Auto) Neut % (Auto) Lymph % (Auto) [place] % (Auto) Eos % (Auto) Baso % (Auto) Immature Gran # (Auto) Neut # (Auto) Lymph # (Auto) [place] # (Auto) Eos # (Auto) Baso # (Auto) Sodium 141 Potassium 3.7 Chloride 108 H Carbon Dioxide 28 Anion Gap 5.0 BUN 13 Creatinine 1.04 Est Cr Clr Drug Dosing 71.0 Est GFR ( Amer) 63.5 Est GFR (Non-Af Amer) 54.8 BUN/Creatinine Ratio 12.9 Glucose 80 Calcium 7.8 L Total Bilirubin 0.5 AST 15 ALT 10 L Alkaline Phosphatase 97 Total Protein 5.7 L Albumin 2.6 L Globulin 3.1 Albumin/Globulin Ratio 0.9 Lipase Urine Color Urine Appearance Urine pH Ur Specific [place] Urine Protein Urine Glucose (UA) Urine Ketones Urine Blood Urine Nitrite Urine Bilirubin Urine Urobilinogen Ur Leukocyte Esterase Urine WBC (Auto) Urine RBC (Auto) U Hyaline Cast (Auto) U Epithel Cells (Auto) Urine Bacteria (Auto)
--- NOTE | 2018-11-01 18:25 | Hospitalist Progress Note ---
Date of Service November 01, 2018 Assessment & Plan (1) Ureteral calculus, right: Presented with obstructing right ureteral calculus with hydronephrosis.. Urology consulted. [place] to have right mid ureteral Steinstrasse, complication from recent lithothripsy. Cysto, right retrograde pyelography, right semirigid ureteroscopy with laser litholithotripsy, basket stone extraction, and ureteral stent placement performed by Dr. George on 10/31/2018. Doing well after the procedure. Urine culture negative so far. Discharged on ciprofloxacin x3 days, tamsulosin per Urology. Outpatient follow-up with Urology for stent removal. (2) Discharge planning issues: Discharge to home. Family Medicine follow-up with Dr. Machado. Urology follow-up with Dr. Machado. Subjective Recheck for ureteral calculus. Patient seen in their room around 17:20. Cystoscopy with lithotripsy and right ureteral stent placement performed yesterday. Doing well postoperatively. No fever. Minimal dysuria. Still has some gross hematuria. No chest pain, cough, SOB, nausea, vomiting, diarrhea. Ambulating. Would like to go home. Physical Exam Constitutional: no acute distress Respiratory: no respiratory distress Auscultation: lungs clear to auscultation bilaterally Cardiovascular: Rate/Rhythm: regular rate and regular rhythm Heart Sounds: no gallop Vessels: no JVD Extremities: no calf tenderness and no edema Gastrointestinal (Abdomen): normal bowel sounds, soft, nontender, no hepatosplenomegaly no CVAT Skin: no rashes, warm and dry Psychiatric: Orientation: alert and oriented x 3 Results & Data Vital Signs (Past 12 Hours) Vital Signs Temp Pulse Pulse Resp BP Pulse Ox 11/01/18 16:10 36.6 C 70 20 142/77 H 97 11/01/18 11:34 36.7 C 66 18 115/73 95 11/01/18 07:49 36.6 C 68 16 122/80 97
[2018-11-01] MEDS ORDERED: CIPROFLOXACIN 500 MG TAB PO ONE (18:34)
--- NOTE | 2018-11-02 04:38 | Discharge Summary ---
Date of Service Date of Admission: 10/30/18 Date of Discharge: 11/01/18 Admission HPI Per Admitting Provider This is a 68 y/o female with a PMH of nephrolithiasis, rosacea, depression, dyslipidemia, history of gastric bypass surgery, FLEMING, and vitamin B12 deficiency presents to the ED today with right flank pain. Pt has a history of nephrolithiasis with multiple episodes having previously required lithotripsy (2009, 2014). Earlier this month she was note to have a 7 mm right renal stone and had started to become symptomatic so she saw urology last week. On Friday 10/27, she underwent right ESWL by Dr. Becerra. She felt well over the weekend but did note gross hematuria until yesterday. Urine since then has been clear. Initially she passed one large stone and then multiple smaller stones shortly after the procedure. This morning she woke up feeling well and ate breakfast. Shortly thereafter (~9 am), she noticed right flank pain that rapidly worsened and radiated around to her right abdomen. She attempted walked around and drank water in attempt to pass the stone but when there was no relief she came to the ED for evaluation. In the ED, she received three doses of IV morphine (total of 16 mg), Toradol (15 mg) before her pain was under control although she is not pain-free. During her time in the ED, she developed nausea with single episode of non-bloody emesis. She received Zofran 4 mg x two doses before nausea improved. She denies fevers, chills, night sweats, fatigue, RASHID, dizziness, chest pain, dyspnea, peripheral edema. She was referred for admission due to intractable symptoms that were unable to be managed without multiple doses of IV medications. Principal Diagnosis right ureteral calculus with hydronephrosis Discharge Data Allergies Allergy/AdvReac Type Severity Reaction Status Date / Time adhesive Allergy Mild RED RASH Verified 10/30/18 13:57 bee venom protein (honey bee) Allergy Mild severe Verified 10/30/18 13:57 swelling, heat at bee sting site No Known Drug Allergies Allergy Unknown . Verified 10/30/18 13:57 Dust Allergy Mild sinusitis Uncoded 10/30/18 13:57 Consultations 10/30/18 16:01 ED Decision to Admit Stat 10/30/18 16:43 Consult Urology Routine Procedures Performed Operation Date: 10/31/18 17:00 Actual Procedures p Cystoscopy, Right Retrograde Pyelogram, semi ridged Ureteroscopy, Laser Lithotripsy with Basket Stone Extraction; (Right) - Daniel George MD s Stent Placement, right(Right) - Daniel George MD Ordered Studies 10/30/18 12:31 US renal/blad retro comp Stat 10/31/18 17:00 FL retrograde includes kub Routine Hospital Course (1) Ureteral calculus, right: Presented with obstructing right ureteral calculus with hydronephrosis.. Urology consulted. [place] to have right mid ureteral Steinstrasse, complication from recent litho thripsy. Cysto, right retrograde pyelography, right semirigid ureteroscopy with laser litholithotripsy, basket stone extraction, and ureteral stent placement performed by Dr. George on 10/31/2018. Did well after the procedure. Urine culture negative so far. Discharged on ciprofloxacin x3 days, tamsulosin per Urology. Outpatient follow-up with Urology for stent removal. (2) Discharge planning issues: Discharged to home. Family Medicine follow-up with Dr. Machado. Urology follow-up with Dr. Machado. Total Time Total Time Spent Total Time Spent (In Minutes): 35 Discharge Plan Discharge Items Patient Disposition: Home - Self-Care Reason For Visit: kidney stone Discharge Diagnosis: kidney stone Condition: Good Discharge Goals: Decrease discomfort and Improve disease control Activity: Resume your previous activity Non-emergency contact: Primary Care Provider, Hospitalist and Urologist Call non-emergency contact if: you have any medication questions, your symptoms worsen and your temperature is above 101 Follow-up/Referrals: Daniel George MD [Physician] - (Office will contact you with appointment.) Steve Machado MD [Primary Care Provider] - (11/08/2018 1:30 PM Steve Machado MD) Diet: Heart Healthy Addtl Provider Instructions: MEDICATION CHANGES: NEW MEDICATIONS FOR KIDNEY STONES ciprofloxacin (Cipro) 500 mg twice a day until gone tamsulosin (Flomax) 0.4 mg at bedtime SUMMARY OF TEST RESULTS: Ultrasound showed right kidney stone. PENDING TEST RESULTS: Final urine culture report pending, but negative so far. RECOMMENDATIONS FOR FOLLOW-UP: Follow-up with Dr. George for removal of stent. OTHER INSTRUCTIONS: Seek medical attention if you have: * temperature above 101 * chest pain or trouble breathing * abdominal pain, nausea, vomiting * diarrhea, dark stools or bloody stools * any unanswered questions or concerns Call 911 if symptoms are severe. Please take good care of yourself. Call if you have any questions or problems. You can reach a [facility] hospitalist on duty at [facility] 24 hours a day by calling [phone]. My cell # is [phone]. Prescriptions: New ciprofloxacin HCl 500 mg tablet 500 mg PO BID Qty: 6 RF: 0 tamsulosin 0.4 mg capsule 0.4 mg PO HS Qty: 14 RF: 0 acetaminophen 500 mg tablet 1,000 mg PO Q8H PRN (Reason: fever or pain) Qty: 60 RF: 0 Continued pseudoephedrine HCl [Sudafed 12 Hour] 120 mg Tablet Extended Release 120 mg PO Q12H PRN (Reason: sinus congestion) RF: 0 acetaminophen [Tylenol Arthritis Pain] 650 mg Tablet Extended Release 650 mg PO Q12H PRN (Reason: Pain) RF: 0 lorazepam 0.5 mg Tablet 0.5 mg PO TID PRN (Reason: Anxiety) RF: 0 metronidazole [MetroCream] 0.75 % Cream 1 applic TOPICAL BID RF: 0 loratadine [Claritin] 10 mg Tablet 10 mg PO HS RF: 0 cholecalciferol (vitamin D3) [Vitamin D3] 1,000 unit Tablet 1,000 unit PO HS RF: 0 guaifenesin [Mucinex] 1,200 mg Tablet Extended Release 12hr 1,200 mg PO DAILY PRN (Reason: Congestion) RF: 0 diclofenac sodium 1 % Gel 2 g TOPICAL TID RF: 0 cyanocobalamin (vitamin B-12) 1,000 mcg/mL Kit 1,000 mcg IM Q6M RF: 0 cannabidiol (CBD) extract 100 mg/mL Solution 4 mg PO BID RF: 0 hydrocodone-acetaminophen 5-325 mg tablet 1 tab PO Q4H PRN (Reason: Pain) RF: 0 Stand-Alone Forms: My [facility]/Other Patient Handouts: Stents Ureteral Discharge Orders: Discharge Order (Routine); Ordered 11/01/18 Ordered By: Cresencio Cheung Admission Data Admit Date/Time: 10/31/18 16:13 Attending Provider: Cresencio Cheung Admit Provider: Patrick Bhakta Primary Care Provider: Steve Machado Other Providers: Patrick Bhakta ; Michael Garcia ; Patrick Orozco Service: Surgical Services Other Interventions: Discharge Summary Assessment (RN) Last Done: 11/01/18 19:01 DC Date/Time DO NOT enter until pt leaves facility: 11/01/18 19:22
[2018-11-07 08:36] LABS: Component 2 DNR
== END 2018-11-01 19:22 | disposition home or self-care (01) | DRG 660 ==
LOC: 3N 11:29 → ED 11:29 → SUATTDRO 16:45 → 3N 17:17 → SUATTDRO 10-31 16:13

== ENCOUNTER 2021-01-06 11:02 | Inpatient (IN) ==
[2021-01-06] MEDS ORDERED: SODIUM CHLORIDE 0.9% 500 ML IV STA (11:23)
[2021-01-06] MEDS ORDERED: KETOROLAC 30 MG/ML VIAL IV STA (11:35)
[2021-01-06] MEDS ORDERED: ONDANSETRON INJ 2 MG/ML 2 ML VIAL IV STA (11:35)
[2021-01-06 11:50] LABS: Basophils # (auto) 0.03 K/uL (0-0.2); Basophils % (auto) 0.2 %; Eosinophils # (auto) 0.17 K/uL (0-0.5); Eosinophils % (auto) 1.2 %; Hemoglobin 13.5 g/dL (12.0-16.0); Immature Granulocytes # (auto) 0.02 K/uL (0.00-0.02); Immature Granulocytes % (auto) 0.1 %; Lymphocytes # (auto) 2.65 K/uL (1.2-3.4); Lymphocytes % (auto) 19.4 %; Mean Corpuscular Hemoglobin 29.5 pg (25-34); Mean Corpuscular Hgb Conc 30.7 g/dL (32-36); Mean Corpuscular Volume 96.3 fL (80-100); Mean Platelet Volume 11.1 fL (7.4-10.4); Monocytes # (auto) 0.96 K/uL (0.11-0.59); Neutrophils # (auto) 9.84 K/uL (1.4-6.5); Neutrophils % (auto) 72.1 %; Platelet Count 299 K/uL (130-400); RDW Standard Deviation 49.8 fL (36.4-46.3); Red Blood Count 4.57 M/uL (4.2-5.4); White Blood Count 13.67 K/uL (4.8-10.8)
--- NOTE | 2021-01-06 11:52 | Emergency Department Note ---
History of Present Illness General Chief complaint: Kidney Stone Stated complaint: KIDNEY STONE Time Seen by Provider: 01/06/21 11:23 History of Present Illness Maximum Pain Intensity: 9 70-year-old female presents to the ED with a chief complaint of right-sided flank pain that started suddenly this morning. She describes it as sharp pain. She had associated nausea and vomiting. No fevers. She did report urinary frequency. She states it feels similar to a kidney stone. She has had these in the past. She has not taken anything for her symptoms. Home Medications Medication Instructions Recorded Confirmed Type acetaminophen 650 mg 650 mg PO Q12H PRN 10/25/18 05/19/20 History tablet,extended release (Tylenol Arthritis Pain) cannabidiol 100 mg/mL oral solution 4 mg PO BID 10/25/18 05/19/20 History cyanocobalamin (vitamin B-12) 1,000 mcg IM Q6M 10/25/18 05/19/20 History 1,000 mcg/mL injection kit diclofenac sodium 1 % topical gel 2 g TOPICAL TID 10/25/18 05/19/20 History guaifenesin 1,200 mg tablet, 1,200 mg PO DAILY PRN 10/25/18 05/19/20 History extended release 12 hr (Mucinex) loratadine 10 mg tablet (Claritin) 10 mg PO HS 10/25/18 05/19/20 History lorazepam 0.5 mg tablet 0.5 mg PO TID PRN 10/25/18 05/19/20 History metronidazole 0.75 % topical cream 1 applic TOPICAL BID 10/25/18 05/19/20 History (MetroCream) acetaminophen 500 mg tablet 1,000 mg PO Q8H PRN #60 tab 11/01/18 05/19/20 Rx albuterol sulfate 90 mcg/actuation 2 puff INH Q4H PRN #1 inhaler 05/19/20 05/19/20 Rx aerosol inhaler (Ventolin HFA) alendronate 70 mg tablet (Fosamax) 70 mg PO .weekly tab 05/19/20 05/19/20 History cholecalciferol (vitamin D3) 25 2,000 unit PO HS tab 05/19/20 05/19/20 History mcg (1,000 unit) tablet (Vitamin D3) Allergies Allergy/AdvReac Type Severity Reaction Status Date / Time adhesive Allergy Mild RED RASH Verified 01/06/21 14:48 bee venom protein (honey bee) Allergy Mild severe Verified 01/06/21 14:48 swelling, heat at bee sting site No Known Drug Allergies Allergy Unknown . Verified 01/06/21 14:48 Dust Allergy Mild sinusitis Uncoded 01/06/21 14:48 Past Med/Surg History Medical History Allergic rhinitis Anxiety Asthma Albuterol inhaler rarely used, no daily inhaler. Depression History of kidney stones Osteoarthritis Rosacea Sleep apnea hx of, no longer had gastric bypass and repeat sleep study was negative. Pt has gained "some" weight back. Surgical History History of bilateral tubal ligation History of cholecystectomy History of colonoscopy History of dilatation and curettage History of gastric bypass History of left breast biopsy benign History of lithotripsy History of total hysterectomy with bilateral salpingo-oophorectomy (BSO) History of umbilical hernia repair x3 History of wisdom tooth extraction Family History Brother Family history of diabetes mellitus Grandmother (Paternal) Family history of diabetes mellitus Sister Family history of diabetes mellitus Family/Other Family history of diabetes mellitus cousins Other No family history of adverse response to anesthesia Social History Smoking Status: Never smoker Second Hand Exposure: Yes (parents smoked/ smoked); Hx Alcohol Use: Yes Alcohol type: wine Hx Substance Use: No Preferred Language: French Communication Ability: Effective Visual Impairment: No Limitations Routing Equipment Tender Required: No Beliefs That Will Affect Care: None Current Living Situation: Spouse Feels Safe at Home: Yes Assistive Devices: None Review of Systems A total of 10 systems reviewed and were otherwise negative Physical Exam Vital Signs Vital Signs - 24 hr 01/06/21 11:14 01/06/21 12:13 01/06/21 12:31 Temperature 36 C L Temperature Source Temporal Artery Scan Pulse Rate 67 63 67 Pulse Rate from SpO2 Sensor 63 66 Respiratory Rate 20 16 16 Respiratory Effort / Characteristics Non-Labored Spontaneous Respiratory Depth Normal Blood Pressure 187/109 H 211/101 H Blood Pressure Mean 135 137 Pulse Oximetry 94 92 90 Oxygen Delivery Method Room Air Sepsis Recent Fever Within 48 Hours No Sepsis New/Unexplained Change in Mental Status N/A Sepsis Action Taken by Nursing No Action Required 01/06/21 12:40 01/06/21 13:01 01/06/21 13:31 Temperature Temperature Source Pulse Rate 66 67 Pulse Rate from SpO2 Sensor 65 67 63 Respiratory Rate 19 15 16 Respiratory Effort / Characteristics Respiratory Depth Blood Pressure 156/110 H 189/65 H Blood Pressure Mean 125 106 Pulse Oximetry 91 92 92 Oxygen Delivery Method Room Air Sepsis Recent Fever Within 48 Hours Sepsis New/Unexplained Change in Mental Status Sepsis Action Taken by Nursing CONSTITUTIONAL/VITAL SIGNS: Reviewed / noted above. GENERAL: Non-toxic in appearance. INTEGUMENTARY: Warm, dry, and Rough And Ready. HEAD: Normocephalic. EYES: without scleral icterus or trauma. ENT/OROPHARYNX: clear and moist. LYMPHADENOPATHY/NECK: Is supple without lymphadenopathy or meningismus. RESPIRATORY: Clear to auscultation bilaterally. No increased work of breathing. CARDIOVASCULAR: Regular rate and rhythm. GI/ABDOMEN: Soft and tender in the right lower quadrant. No organomegaly or pulsatile mass. EXTREMITIES: Warm and well perfused. BACK: Right-sided CVA tenderness. NEUROLOGICAL: Intact without focal deficits. PSYCHIATRIC: normal affect. MUSCULOSKELETAL: Normally developed with good muscle tone. TRIAGE NURSING DOCUMENTATION REVIEWED. Course Administered Medications Discontinued Medications Sodium Chloride (Nss) 500 mls @ 999 mls/hr IV .Q31M STA Stop: 01/06/21 11:53 Last Infusion: 01/06/21 12:39 Dose: 0 mls/hr Documented by: [id number] Admin: 01/06/21 11:36 Dose: 999 mls/hr Documented by: [id number] Ketorolac Tromethamine (Ketorolac 30 Mg/Ml Vial) 30 mg IV NOW STA Stop: 01/06/21 11:36 Last Admin: 01/06/21 11:40 Dose: 30 mg Documented by: [id number] Morphine Sulfate (Morphine Sulfate 4 Mg/Ml 1 Ml Carp\\Vial) 4 mg IV NOW STA Stop: 01/06/21 13:05 Last Admin: 01/06/21 13:24 Dose: 4 mg Documented by: [id number] Ondansetron HCl (Ondansetron Inj 2 Mg/Ml 2 Ml Vial) 4 mg IV NOW STA Stop: 01/06/21 11:36 Last Admin: 01/06/21 11:40 Dose: 4 mg Documented by: [id number] Medical Decision Making Differential Diagnosis Differential considered: pancreatitis, hepatitis, acute cholecystitis, AAA, UTI, pyelonephritis, kidney stones, appendicitis, diverticulitis, shingles, bowel obstruction, mesenteric ischemia, intussusception,hernia Medical Records Attestation: I reviewed the patient's medical records. Home Medications Current Medication List: was personally reviewed by me Laboratory Data Attestation: I reviewed the patient's lab results. Result diagrams: 01/06/21 11:35 01/06/21 11:35 Lab Results 01/06/21 01/06/21 01/06/21 Range/Units 11:35 11:35 13:20 WBC 13.67 H (4.8-10.8) K/uL RBC 4.57 (4.2-5.4) M/uL Hgb 13.5 (12.0-16.0) g/dL Hct 44.0 (37-47) % MCV 96.3 (80-100) fL MCH 29.5 (25-34) pg MCHC 30.7 L (32-36) g/dL RDW Std Deviation 49.8 H (36.4-46.3) fL RDW Coeff of Radha 14.0 (11.5-14.5) % Plt Count 299 (130-400) K/uL MPV 11.1 H (7.4-10.4) fL Immature Gran % (Auto) 0.1 % Neut % (Auto) 72.1 % Lymph % (Auto) 19.4 % Morrison % (Auto) 7.0 % Eos % (Auto) 1.2 % Baso % (Auto) 0.2 % Neut # (Auto) 9.84 H (1.4-6.5) K/uL Lymph # (Auto) 2.65 (1.2-3.4) K/uL Morrison # (Auto) 0.96 H (0.11-0.59) K/uL Eos # (Auto) 0.17 (0-0.5) K/uL Baso # (Auto) 0.03 (0-0.2) K/uL Immature Gran # (Auto) 0.02 (0.00-0.02) K/uL Sodium 140 (136-145) mmol/L Potassium 3.9 (3.5-5.1) mmol/L Chloride 105 (98-107) mmol/L Carbon Dioxide 29 (21-32) mmol/L Anion Gap 7.0 (3-11) BUN 13 (7-18) mg/dl Creatinine 0.90 (0.6-1.2) mg/dl Est Cr Clr Drug Dosing 79.4 ml/min Est GFR ( Amer) 74.6 ml/min Est GFR (Non-Af Amer) 64.3 ml/min BUN/Creatinine Ratio 13.9 (10-20) Glucose 108 H (70-99) mg/dl Calcium 8.7 (8.5-10.1) mg/dl Total Bilirubin 0.3 (0.2-1) mg/dl AST 21 (15-37) U/L ALT 11 L (12-78) U/L Alkaline Phosphatase 89 (45-117) U/L Total Protein 7.5 (6.4-8.2) gm/dl Albumin 3.2 L (3.4-5.0) gm/dl Globulin 4.3 H (2.5-4.0) gm/dl Albumin/Globulin Ratio 0.7 L (0.9-2) Lipase 146 (73-393) U/L Specimen Hemolysis Urine Color Yellow Urine Appearance Clear (Clear) Urine pH 7.5 (4.5-7.5) Ur Specific Lovell 1.015 (1.000-1.030) Urine Protein Negative (Negative) Urine Glucose (UA) Negative (Negative) Urine Ketones Trace H (Negative) Urine Blood 2+ H (Negative) Urine Nitrite Negative (Negative) Urine Bilirubin Negative (Negative) Urine Urobilinogen Negative (Negative) Ur Leukocyte Esterase 1+ H (Negative) Urine WBC (Auto) 5-10 H (0-5) /hpf Urine RBC (Auto) 10-30 H (0-4) /hpf U Hyaline Cast (Auto) 1-5 (0-5) /lpf U Epithel Cells (Auto) >30 H (0-5) /lpf Urine Bacteria (Auto) Negative (Negative) Imaging Data Radiologist's Impression: Abdomen/Pelvis CT 01/06/21 11:[address] WITHOUT CONTRAST CT DOSE: 1845.96 mGy.cm HISTORY: rt flank pain TECHNIQUE: Multiaxial CT images of the abdomen and pelvis were performed without contrast. A dose lowering technique was utilized adhering to the principles of ALARA. COMPARISON STUDY: KUB 02/14/2020. Abdomen and pelvis CT 01/15/2019. FINDINGS: Left basilar linear densities consistent with subsegmental atelectasis. No pneumoperitoneum. No pneumatosis. There are few small bilateral breast nodules with the largest on the left measuring 1 cm. These are indetermin ate but could represent small cysts. Follow-up nonemergent dedicated mammogram is recommended for further evaluation. Prior ventral hernia mesh repair. The bladder is decompressed and therefore not well evaluated. Prior hysterectomy. No pelvic free fluid. There is a 7 mm obstructing stone within the distal right ureter at the level of the iliac vessels on image 345. This results in moderate right hydroureteronephrosis. There are multiple additional bilateral renal calculi measuring up to 4 mm. Multiple bilateral renal hypodense lesions are again noted. These are incompletely characterized on this noncontrast study but statistically represent cysts. Dominant lesion within the lower pole of the right kidney measures 4.1 cm. This previously measured 3.8 cm. This does not clearly represent a simple cyst. Postoperative changes consistent with prior gastric bypass. There is a small hiatus hernia. Suboptimal evaluation for bowel pathology due to the lack of intravenous and oral contrast. However, there is no definite bowel wall thickening or obstruction. Colonic diverticulosis. No evidence for acute diverticulitis. Normal appendix. Cholecystectomy. There are few hypodense lesions within the liver which remain stable. Therefore, these likely represent cysts. The unenhanced pancreas, spleen, and adrenal glands are unremarkable. IMPRESSION: 1. A 7 mm obstructing stone within the distal right ureter resulting in moderate right hydronephrosis. 2. Bilateral nephrolithiasis. 3. A 4.1 cm exophytic lesion within the lower pole of the right kidney which has slightly increased in size. This does not clearly represent a simple cyst. Therefore, follow-up nonemergent dedicated renal ultrasound is recommended to exclude the less likely possibility of a complex cyst/mass. 4. There are few small bilateral breast nodules with the largest on the left measuring 1 cm. These are indeterminate but could represent small cysts. Follow- up nonemergent dedicated mammogram is recommended for further evaluation. ACT 112: Positive. There are findings on this exam that require communication between the performing entity and the patient following Patient Test Result Info rmation Act ([place] Act 112) guidelines. Electronically signed by: Anupam Iniguez M.D. 01/06/2021 12:27 PM ECG Data Attestation: I personally reviewed and interpreted this ECG as follows: MDM Narrative 70-year-old female presents with right flank pain that she states is similar to previous kidney stones. Details listed above. Exam reveals some right lower quadrant abdominal tenderness as well as right flank CVA tenderness. The patient's blood pressure was elevated. A CT scan shows a 7 mm distal ureteral stone on the right. White blood cell count was 13.6. Urine does not appear infected. Metabolic panel was otherwise unremarkable. The patient was treated with IV Toradol as well as IV morphine here. She was given IV Zofran and IV fluids. The patient states that she has never passed a stone this large before and has required stents for stones less than this. She does not feel comfortabl e going home as she feels that her pain is not going to be well managed at home in addition to her nausea and vomiting with her pain. I did speak with the hospitalist about the patient for further inpatient evaluation and care. Impression & Plan Renal colic on right side, Vomiting Discharge Plan Visit Data Chief Complaint: Kidney Stone Stated Complaint: KIDNEY STONE ED Provider: Bentley White Discharge Problem: Renal colic on right side, Vomiting Patient Disposition: Being Evaluated by Hospitalist Forms Stand Alone Forms: My [facility], Virtual Emergency Department, Important Visit Information Prescriptions Prescriptions: No Action alendronate [Fosamax] 70 mg tablet 70 mg PO .weekly RF: 0 albuterol sulfate [Ventolin HFA] 90 mcg/actuation HFA aerosol inhaler 2 puff INH Q4H PRN (Reason: Shortness Of Breath) Qty: 1 RF: 11 acetaminophen [Tylenol Arthritis Pain] 650 mg Tablet Extended Release 650 mg PO Q12H PRN (Reason: Pain) RF: 0 lorazepam 0.5 mg Tablet 0.5 mg PO TID PRN (Reason: Anxiety) RF: 0 metronidazole [MetroCream] 0.75 % Cream 1 applic TOPICAL BID RF: 0 loratadine [Claritin] 10 mg Tablet 10 mg PO HS RF: 0 guaifenesin [Mucinex] 1,200 mg Tablet Extended Release 12hr 1,200 mg PO DAILY PRN (Reason: Congestion) RF: 0 diclofenac sodium 1 % Gel 2 g TOPICAL TID RF: 0 cyanocobalamin (vitamin B-12) 1,000 mcg/mL Kit 1,000 mcg IM Q6M RF: 0 cannabidiol 100 mg/mL Solution 4 mg PO BID RF: 0 cholecalciferol (vitamin D3) [Vitamin D3] 25 mcg (1,000 unit) tablet 2,000 unit PO HS RF: 0 acetaminophen 500 mg tablet 1,000 mg PO Q8H PRN (Reason: fever or pain) Qty: 60 RF: 0 Referrals Referrals: Steve Machado MD [Primary Care Provider] -
[2021-01-06 12:15] LABS: Albumin Globulin Ratio 0.7 (0.9-2); Albumin Level 3.2 gm/dl (3.4-5.0); BUN Creatinine Ratio 13.9 (10-20); Bilirubin,Total 0.3 mg/dl (0.2-1); Calcium 8.7 mg/dl (8.5-10.1); Creatinine Clr Calc Pharmacy 79.4 ml/min; Est GFR (African American) 74.6 ml/min; Est GFR (Non-African American) 64.3 ml/min; Globulin 4.3 gm/dl (2.5-4.0); Potassium 3.9 mmol/L (3.5-5.1); Total Protein 7.5 gm/dl (6.4-8.2)
--- NOTE | 2021-01-06 12:28 | CT Scan Report ---
ABDOMEN AND PELVIS CT WITHOUT CONTRAST CT DOSE: 1845.96 mGy.cm HISTORY: rt flank pain TECHNIQUE: Multiaxial CT images of the abdomen and pelvis were performed without contrast. A dose lo wering technique was utilized adhering to the principles of ALARA. COMPARISON STUDY: KUB 02/14/2020. Abdomen and pelvis CT 01/15/2019. FINDINGS: Left basilar linear densities consistent with subsegmental atelectasis. No pneumoperitoneum . No pneumatosis. There are few small bilateral breast nodules with the largest on the left measuring 1 cm. These are indeterminate but could represent small cysts. Follow-up nonemergent dedicated mammo gram is recommended for further evaluation. Prior ventral hernia mesh repair. The bladder is decompre ssed and therefore not well evaluated. Prior hysterectomy. No pelvic free fluid. There is a 7 mm obst ructing stone within the distal right ureter at the level of the iliac vessels on image 345. This res ults in moderate right hydroureteronephrosis. There are multiple additional bilateral renal calculi m easuring up to 4 mm. Multiple bilateral renal hypodense lesions are again noted. These are incomplete ly characterized on this noncontrast study but statistically represent cysts. Dominant lesion within the lower pole of the right kidney measures 4.1 cm. This previously measured 3.8 cm. This does not cl early represent a simple cyst. Postoperative changes consistent with prior gastric bypass. There is a small hiatus hernia. Suboptimal evaluation for bowel pathology due to the lack of intravenous and or al contrast. However, there is no definite bowel wall thickening or obstruction. Colonic diverticulos is. No evidence for acute diverticulitis. Normal appendix. Cholecystectomy. There are few hypodense l esions within the liver which remain stable. Therefore, these likely represent cysts. The unenhanced pancreas, spleen, and adrenal glands are unremarkable. IMPRESSION: 1. A 7 mm obstructing stone within the distal right ureter resulting in moderate right hydronephrosis . 2. Bilateral nephrolithiasis. 3. A 4.1 cm exophytic lesion within the lower pole of the right kidney which has slightly increased i n size. This does not clearly represent a simple cyst. Therefore, follow-up nonemergent dedicated debbi al ultrasound is recommended to exclude the less likely possibility of a complex cyst/mass. 4. There are few small bilateral breast nodules with the largest on the left measuring 1 cm. These ar e indeterminate but could represent small cysts. Follow-up nonemergent dedicated mammogram is recomme nded for further evaluation. ACT 112: Positive. There are findings on this exam that require communication between the performing entity and the patient following Patient Test Result Information Act ([place] Act 112) guidelines. Electronically signed by: Anupam Iniguez M.D. 01/06/2021 12:27 PM
[2021-01-06] MEDS ORDERED: MoRPHine SULFATE 4 MG/ML 1 ML CARP\\VIAL IV STA (13:04)
[2021-01-06 13:39] LABS: Appearance Urine Clear (Clear); Bacteria Urine Automated Negative (Negative); Bilirubin Urine Negative (Negative); Blood Urine 2+ (Negative); Color Urine Yellow; Epithelial Cell Urine Auto >30 /lpf (0-5); Glucose Urine UA Negative (Negative); Ketones Urine Trace (Negative); Leukocyte Esterase Urine 1+ (Negative); Nitrite Urine Negative (Negative); Protein Urine Negative (Negative); Specific Gravity Urine 1.015 (1.000-1.030); Urobilinogen Urine Negative (Negative); pH Urine 7.5 (4.5-7.5)
[2021-01-06] MEDS ORDERED: MoRPHine SULFATE 4 MG/ML 1 ML CARP\\VIAL IV PRN (14:50)
--- NOTE | 2021-01-06 14:52 | History & Physical Report ---
Date of Service January 06, 2021 Assessment & Plan (1) Renal colic on right side: (2) Vomiting: (3) Ureteral calculus, right: (4) Hydronephrosis: Plan: Pt with hx of nephrolithiasis now presents with R renal colic 7 mm obstructing R ureteral stone with moderate hydronephrosis. CT also noted 4.1 cm exophytic lesion within lower pole of right kidney, slightly increased in size - per urology, recommend outpatient follow-up with contrast enhanced CT or MRI for further evaluation. UA not c/w UTI No sepsis WBC only mildly elevated Follow urine culture Gentle IVF, flomax, strain all the urine pain control, antiemetics Monitor for any signs of infection, now temp. normal, BP actually elevated Urology consulted, seen the pt in ER NPO after MN, continue current management Nausea/ vomiting - now much improved - pt wants to attempt to eat - ok to have dinner but NPO after MN - antiemetics as needed Elevated BP - pt reports no HTN as outpt and no meds for BP - likely d/t pain - pain control - hydralazine IV prn ordered - cont. to closely monitor Asthma - well controlled - no acute exacerbation - home inhalers as needed Depression - cont. celexa Morbid obesity, BMI ~52 - s/p gastric bypass - counseling and outpt follow up DVT ppx: SCDs Code: DNR/DNI History of Present Illness Chief Complaint: R flank pain Primary Care Provider: Steve Mahcado MD Pt is a 70 y/o female with a hx of nephrolithiasis, asthma, dyslipidemia, morbid obesity (BMI ~52), history of gastric bypass surgery, FLEMING, and vitamin B12 deficiency presents with right flank pain. Pt has a history of nephrolithiasis, follows closely with [facility] [place] [facility] urology. Today pt experienced R flank pain radiating to her groin, nausea and vomiting. Says nausea and vomiting are new for her, usually experienced only severe pain. Denies having any hematuria, or dysuria, or any difficulty passing urine. Denies fevers, chills, chest pain, shortness of breath, RASHID, constipation or diarrhea. Of note, pt reports having chest pain some more recent time ago, and underwent stress test which was reportedly normal. In the ED, pt was hypertensive, she tells me she does not atke any BP meds on regular basis, as her BP is usually controlled. On my evaluation pt is already comfortable and denies any significant pain, she is also willing to try to eat, as her nausea and vomiting are controlled now. In the ED, CT abdomen pelvis was obtained - significant for 7 mm obstructing R ureteral stone. Pt received morphine and antiemetics. I contacted urology and pt was seen by their service while in ER. Allergies Allergy/AdvReac Type Severity Reaction Status Date / Time adhesive Allergy Mild RED RASH Verified 01/06/21 14:48 bee venom protein (honey bee) Allergy Mild severe Verified 01/06/21 14:48 swelling, heat at bee sting site No Known Drug Allergies Allergy Unknown . Verified 01/06/21 14:48 Dust Allergy Mild sinusitis Uncoded 01/06/21 14:48 Home Medications Medication Instructions Recorded Confirmed Type cyanocobalamin (vitamin B-12) 1,000 mcg IM Q6M 10/25/18 01/06/21 History 1,000 mcg/mL injection kit diclofenac sodium 1 % topical gel 2 g TOPICAL TID 10/25/18 01/06/21 History (Voltaren Arthritis Pain) guaifenesin 1,200 mg tablet, 1,200 mg PO DAILY PRN 10/25/18 01/06/21 History extended release 12 hr (Mucinex) metronidazole 0.75 % topical cream 1 applic TOPICAL BID 10/25/18 01/06/21 History (MetroCream) albuterol sulfate 90 mcg/actuation 2 puff INH Q4H PRN #1 inhaler 05/19/20 01/06/21 Rx aerosol inhaler (Ventolin HFA) alendronate 70 mg tablet (Fosamax) 70 mg PO WK tab 05/19/20 01/06/21 History cholecalciferol (vitamin D3) 25 2,000 unit PO HS tab 05/19/20 01/06/21 History mcg (1,000 unit) tablet (Vitamin D3) citalopram 40 mg tablet (Celexa) 40 mg PO HS 01/06/21 01/06/21 History fluticasone propionate 50 2 spray INTRANASAL HS 01/06/21 01/06/21 History mcg/actuation nasal spray,suspension (Flonase Allergy Relief) Past Med/Surg History Medical History Allergic rhinitis Anxiety Asthma Albuterol inhaler rarely used, no daily inhaler. Depression History of kidney stones Osteoarthritis Rosacea Sleep apnea hx of, no longer had gastric bypass and repeat sleep study was negative. Pt has gained "some" weight back. Surgical History History of bilateral tubal ligation History of cholecystectomy History of colonoscopy History of dilatation and curettage History of gastric bypass History of left breast biopsy benign History of lithotripsy History of total hysterectomy with bilateral salpingo-oophorectomy (BSO) History of umbilical hernia repair x3 History of wisdom tooth extraction Family History Brother Family history of diabetes mellitus Grandmother (Paternal) Family history of diabetes mellitus Sister Family history of diabetes mellitus Family/Other Family history of diabetes mellitus cousins Other No family history of adverse response to anesthesia Social History Smoking Status: Never smoker Second Hand Exposure: Yes (parents smoked/ smoked); Hx Alcohol Use: Yes Alcohol type: wine Hx Substance Use: Yes Last Used Substance: Days (ago) Substance Use Type Other:: CBD Oil Preferred Language: Armenian Communication Ability: Effective Visual Impairment: No Limitations Professional Sports Scout Required: No Beliefs That Will Affect Care: None Current Living Situation: Spouse Other Information That Helps Us Care for You: No Feels Safe at Home: Yes Safety Concerns: Feels Safe At This Time Assistive Devices: Glasses Review of Systems Review of Systems: All systems reviewed & are unremarkable except as noted in HPI & below Physical Exam Constitutional: WD/WN, vitals as above (obese F in NAD) Eyes: PERRL, conjunctivae normal, anicteric sclerae ENMT: external ear and nose normal, oropharynx normal Neck: + short neck and + thick neck Respiratory: normal respiratory effort, lungs clear to auscultation Cardiovascular: RRR, no murmur, no edema Chest (Breasts): Chest: normal inspection of chest Gastrointestinal (Abdomen): obese, soft, + bowel sounds + R CVA tenderness, otherwise nontender to palpation Musculoskeletal: no cyanosis or clubbing, extremities motor strength 5/5 Skin: no rashes, warm and dry Neurologic: PERRL, EOMI, accommodation nl, no face palsy, no dysarthria Psychiatric: A+Ox3, euthymic affect Genitourinary: + CVA tenderness (Right) Lymphatic: no lymphedema Results & Data Results & [facility] ([facility]) Vital Signs (Past 12 Hours) Vital Signs Temp Pulse Resp BP Pulse Ox 01/06/21 13:31 16 189/65 H 92 01/06/21 13:01 67 15 156/110 H 92 01/06/21 12:40 66 19 91 01/06/21 12:31 67 16 90 01/06/21 12:13 63 16 211/101 H 92 01/06/21 11:14 36 C L 67 20 187/109 H 94 Laboratory Results 01/06/21 01/06/21 01/06/21 Range/Units 14:45 14:45 13:20 WBC (4.8-10.8) K/uL RBC (4.2-5.4) M/uL Hgb (12.0-16.0) g/dL Hct (37-47) % MCV (80-100) fL MCH (25-34) pg MCHC (32-36) g/dL RDW Std Deviation (36.4-46.3) fL RDW Coeff of Radha (11.5-14.5) % Plt Count (130-400) K/uL MPV (7.4-10.4) fL Immature Gran % (Auto) % Neut % (Auto) % Lymph % (Auto) % Lake % (Auto) % Eos % (Auto) % Baso % (Auto) % Neut # (Auto) (1.4-6.5) K/uL Lymph # (Auto) (1.2-3.4) K/uL Lake # (Auto) (0.11-0.59) K/uL Eos # (Auto) (0-0.5) K/uL Baso # (Auto) (0-0.2) K/uL Immature Gran # (Auto) (0.00-0.02) K/uL Sodium (136-145) mmol/L Potassium (3.5-5.1) mmol/L Chloride (98-107) mmol/L Carbon Dioxide (21-32) mmol/L Anion Gap (3-11) BUN (7-18) mg/dl Creatinine (0.6-1.2) mg/dl Est Cr Clr Drug Dosing ml/min Est GFR ( Amer) ml/min Est GFR (Non-Af Amer) ml/min BUN/Creatinine Ratio (10-20) Glucose (70-99) mg/dl Calcium (8.5-10.1) mg/dl Total Bilirubin (0.2-1) mg/dl AST (15-37) U/L ALT (12-78) U/L Alkaline Phosphatase (45-117) U/L Total Protein (6.4-8.2) gm/dl Albumin (3.4-5.0) gm/dl Globulin (2.5-4.0) gm/dl Albumin/Globulin Ratio (0.9-2) Lipase (73-393) U/L Specimen Hemolysis Urine Color Yellow Urine Appearance Clear (Clear) Urine pH 7.5 (4.5-7.5) Ur Specific Mccarr 1.015 (1.000-1.030) Urine Protein Negative (Negative) Urine Glucose (UA) Negative (Negative) Urine Ketones Trace H (Negative) Urine Blood 2+ H (Negative) Urine Nitrite Negative (Negative) Urine Bilirubin Negative (Negative) Urine Urobilinogen Negative (Negative) Ur Leukocyte Esterase 1+ H (Negative) Urine WBC (Auto) 5-10 H (0-5) /hpf Urine RBC (Auto) 10-30 H (0-4) /hpf U Hyaline Cast (Auto) 1-5 (0-5) /lpf U Epithel Cells (Auto) >30 H (0-5) /lpf Urine Bacteria (Auto) Negative (Negative) COVID-19 Eval Order Covid19 at [facility] SARS-CoV-2 (PCR) NEGATIVE (Negative) 01/06/21 01/06/21 Range/Units 11:35 11:35 WBC 13.67 H (4.8-10.8) K/uL RBC 4.57 (4.2-5.4) M/uL Hgb 13.5 (12.0-16.0) g/dL Hct 44.0 (37-47) % MCV 96.3 (80-100) fL MCH 29.5 (25-34) pg MCHC 30.7 L (32-36) g/dL RDW Std Deviation 49.8 H (36.4-46.3) fL RDW Coeff of Radha 14.0 (11.5-14.5) % Plt Count 299 (130-400) K/uL MPV 11.1 H (7.4-10.4) fL Immature Gran % (Auto) 0.1 % Neut % (Auto) 72.1 % Lymph % (Auto) 19.4 % Lake % (Auto) 7.0 % Eos % (Auto) 1.2 % Baso % (Auto) 0.2 % Neut # (Auto) 9.84 H (1.4-6.5) K/uL Lymph # (Auto) 2.65 (1.2-3.4) K/uL Lake # (Auto) 0.96 H (0.11-0.59) K/uL Eos # (Auto) 0.17 (0-0.5) K/uL Baso # (Auto) 0.03 (0-0.2) K/uL Immature Gran # (Auto) 0.02 (0.00-0.02) K/uL Sodium 140 (136-145) mmol/L Potassium 3.9 (3.5-5.1) mmol/L Chloride 105 (98-107) mmol/L Carbon Dioxide 29 (21-32) mmol/L Anion Gap 7.0 (3-11) BUN 13 (7-18) mg/dl Creatinine 0.90 (0.6-1.2) mg/dl Est Cr Clr Drug Dosing 79.4 ml/min Est GFR ( Amer) 74.6 ml/min Est GFR (Non-Af Amer) 64.3 ml/min BUN/Creatinine Ratio 13.9 (10-20) Glucose 108 H (70-99) mg/dl Calcium 8.7 (8.5-10.1) mg/dl Total Bilirubin 0.3 (0.2-1) mg/dl AST 21 (15-37) U/L ALT 11 L (12-78) U/L Alkaline Phosphatase 89 (45-117) U/L Total Protein 7.5 (6.4-8.2) gm/dl Albumin 3.2 L (3.4-5.0) gm/dl Globulin 4.3 H (2.5-4.0) gm/dl Albumin/Globulin Ratio 0.7 L (0.9-2) Lipase 146 (73-393) U/L Specimen Hemolysis Urine Color Urine Appearance (Clear) Urine pH (4.5-7.5) Ur Specific Mccarr (1.000-1.030) Urine Protein (Negative) Urine Glucose (UA) (Negative) Urine Ketones (Negative) Urine Blood (Negative) Urine Nitrite (Negative) Urine Bilirubin (Negative) Urine Urobilinogen (Negative) Ur Leukocyte Esterase (Negative) Urine WBC (Auto) (0-5) /hpf Urine RBC (Auto) (0-4) /hpf U Hyaline Cast (Auto) (0-5) /lpf U Epithel Cells (Auto) (0-5) /lpf Urine Bacteria (Auto) (Negative) COVID-19 Eval Order SARS-CoV-2 (PCR) (Negative) Diagnostic Findings CT abdomen/pelvis IMPRESSION: 1. A 7 mm obstructing stone within the distal right ureter resulting in moderate right hydronephrosis. 2. Bilateral nephrolithiasis. 3. A 4.1 cm exophytic lesion within the lower pole of the right kidney which has slightly increased in size. This does not clearly represent a simple cyst. Therefore, follow-up nonemergent dedicated renal ultrasound is recommended to exclude the less likely possibility of a complex cyst/mass. 4. There are few small bilateral breast nodules with the largest on the left measuring 1 cm. These are indeterminate but could represent small cysts. Follow- up nonemergent dedicated mammogram is recommended for further evaluation. (1) Hydronephrosis Hydronephrosis type: unspecified Qualified Code(s): N13.30 - Unspecified hydronephrosis
--- NOTE | 2021-01-06 15:44 | Urology Consultation ---
Date of Consultation January 06, 2021 Assessment & Plan (1) Ureteral calculus, right: (2) Hydronephrosis: 70 yo F admitted for right flank pain secondary to an obstructing 7 mm distal right ureteral calculus with moderate right hydronephrosis. - Plan of care reviewed with Dr. Garcia, urologist rehabilitation manager. - Patient afebrile, nontoxic in appearance. - Pain is currently well-controlled. - Lab work reviewed - creatinine 0.90, WBC 13.67. - UA on admission not overly suggestive of infection. However, recommend obtaining urine culture. - CTAP wo con reviewed and notable for obstructing 7 mm distal right ureteral stone with moderate hydronephrosis. - CT also noted 4.1 cm exophytic lesion within lower pole of right kidney, slightly increased in size - recommend outpatient follow-up with contrast enhanced CT or MRI for further evaluation. - Discussed options for stone management including stent placement inpatient vs outpatient follow-up if pain is controlled. - Okay to have diet today, make NPO at midnight to reassess in AM. - She is agreeable to the above plan, all questions answered. - Continue supportive care and management per primary service. Please consult our service urgently if patient develops fever >101F, intractable pain or nausea, as this will necessitate urgent surgical intervention. Thank you for the consultation and we will continue to monitor closely with primary service. History of Present Illness Reason for Consultation: Right ureteral stone Requesting Physician: Dr. Crutis Attending Physician: Dr. Curtis History of Present Illness 70 yo F with past medical history of nephrolithiasis, osteoarthritis, asthma, depression, and anxiety admitted with right flank pain secondary to an obstructing 7 mm distal right ureteral stone with moderate hydronephrosis. Patient is known to our service for history of nephrolithiasis. She presented to [facility] today with complaint of sudden onset of right flank pain with associated nausea and vomiting that started this morning. Afebrile on arrival. Lab work showed creatinine 0.90, WBC 13.67, hemoglobin 13.5. Urinalysis showed 1+ leukocytes, 5-10 WBCs, 10-30 RBCs, > 30 epithelials, and negative for bacteria and nitrates. No urine culture pending at this time. CT abdomen pelvis without contrast showed a 7 mm obstructing stone in the distal right ureter with moderate right hydronephrosis. Bilateral nephrolithiasis. Also noted 4.1 cm exophytic lesion within the lower pole of the right kidney slightly increased in size. ED course included IV fluids, ketorolac, morphine, ondansetron. Covid test collected and pending. She was admitted to hospital medicine service. Our service is consulted for evaluation of right ureteral stone. Patient seen and examined in ED this afternoon. She is awake and resting in stretcher, appears comfortable. Reports pain is currently well controlled, pain rated as 2 out of 10 in right flank. Denies nausea or vomiting at present. No fever or chills. She is voiding spontaneously without difficulty. No dysuria or hematuria. She had breakfast early this morning, but subsequently vomited. She has had some crackers and water in the ER. Hx of prior surgical intervention for stones including ESWL and URS-LL, most recently in 2019. Calcium oxalate stones in 2019. Denies family history of malignancy. Of note, she reports she is pending breast biopsy this Tuesday. No additional concerns today. Allergies Allergy/AdvReac Type Severity Reaction Status Date / Time adhesive Allergy Mild RED RASH Verified 01/06/21 14:48 bee venom protein (honey bee) Allergy Mild severe Verified 01/06/21 14:48 swelling, heat at bee sting site No Known Drug Allergies Allergy Unknown . Verified 01/06/21 14:48 Dust Allergy Mild sinusitis Uncoded 01/06/21 14:48 Home Medications Medication Instructions Recorded Confirmed Type cyanocobalamin (vitamin B-12) 1,000 mcg IM Q6M 10/25/18 01/06/21 History 1,000 mcg/mL injection kit diclofenac sodium 1 % topical gel 2 g TOPICAL TID 10/25/18 01/06/21 History (Voltaren Arthritis Pain) guaifenesin 1,200 mg tablet, 1,200 mg PO DAILY PRN 10/25/18 01/06/21 History extended release 12 hr (Mucinex) metronidazole 0.75 % topical cream 1 applic TOPICAL BID 10/25/18 01/06/21 History (MetroCream) albuterol sulfate 90 mcg/actuation 2 puff INH Q4H PRN #1 inhaler 05/19/20 01/06/21 Rx aerosol inhaler (Ventolin HFA) alendronate 70 mg tablet (Fosamax) 70 mg PO WK tab 05/19/20 01/06/21 History cholecalciferol (vitamin D3) 25 2,000 unit PO HS tab 05/19/20 01/06/21 History mcg (1,000 unit) tablet (Vitamin D3) citalopram 40 mg tablet (Celexa) 40 mg PO HS 01/06/21 01/06/21 History fluticasone propionate 50 2 spray INTRANASAL HS 01/06/21 01/06/21 History mcg/actuation nasal spray,suspension (Flonase Allergy Relief) Patient History Medical History Allergic rhinitis Anxiety Asthma Albuterol inhaler rarely used, no daily inhaler. Depression History of kidney stones Osteoarthritis Rosacea Sleep apnea hx of, no longer had gastric bypass and repeat sleep study was negative. Pt has gained "some" weight back. Surgical History History of bilateral tubal ligation History of cholecystectomy History of colonoscopy History of dilatation and curettage History of gastric bypass History of left breast biopsy benign History of lithotripsy History of total hysterectomy with bilateral salpingo-oophorectomy (BSO) History of umbilical hernia repair x3 History of wisdom tooth extraction Family History Brother Family history of diabetes mellitus Grandmother (Paternal) Family history of diabetes mellitus Sister Family history of diabetes mellitus Family/Other Family history of diabetes mellitus cousins Other No family history of adverse response to anesthesia Social History Smoking Status: Never smoker Second Hand Exposure: Yes (parents smoked/ smoked); Hx Alcohol Use: Yes Alcohol type: wine Hx Substance Use: No Preferred Language: Yakut Communication Ability: Effective Visual Impairment: No Limitations Forestry Aid Required: No Beliefs That Will Affect Care: None Current Living Situation: Spouse Feels Safe at Home: Yes Assistive Devices: None Review of Systems Constitutional: as per Subjective / HPI Eyes: no problem reported Ear, Nose, Mouth, Throat: no problem reported Respiratory: no dyspnea Cardiovascular: no chest pain Gastrointestinal: as per Subjective / HPI Genitourinary: as per Subjective / HPI Integumentary: no problem reported Neurologic: no problem reported Psychiatric: no problem reported Physical Exam Constitutional: well developed, well nourished and + obese; no acute distress and not ill appearing Respiratory: normal respiratory effort and able to speak in complete sentences; no respiratory distress and no labored breathing Cardiovascular: Extremities: no pedal edema Gastrointestinal (Abdomen): Inspection/Auscultation: abdomen normal to inspection; abdomen not distended Percussion/Palpation: + abdomen tender (mildly tender to palpation in right lower abdomen) and abdomen soft; no guarding Neurologic: moves all extremities and awake Psychiatric: Orientation: alert, oriented x 3 and cooperative Eye Contact: good eye contact Genitourinary: + CVA tenderness (mild tenderness to palpation over right flank) Results & Data ([facility]) Vital Signs (Past 12 Hours) Vital Signs Temp Pulse Resp BP Pulse Ox 01/06/21 15:01 63 23 160/86 H 98 01/06/21 14:31 66 22 180/106 H 99 01/06/21 14:00 75 18 179/89 H 01/06/21 13:31 16 189/65 H 92 01/06/21 13:01 67 15 156/110 H 92 01/06/21 12:40 66 19 91 01/06/21 12:31 67 16 90 01/06/21 12:13 63 16 211/101 H 92 01/06/21 11:14 36 C L 67 20 187/109 H 94 PG Care Time/CCT Total # of Minutes Spent Total Time Spent with Patient: Total time spent is greater than 50% in coordination of care (as documented) at patient's floor/unit and/or counseling patient: Coding Level of Care Code 15978 Initial Inpt Care Lvl 3 Diagnoses Ureteral calculus, right N20.1 Hydronephrosis N13.30 Hydronephrosis type: unspecified (1) Hydronephrosis Hydronephrosis type: unspecified Qualified Code(s): N13.30 - Unspecified hydronephrosis
[2021-01-06] MEDS ORDERED: ALBUTEROL HFA 8 GM INHALER INH PRN (20:20)
[2021-01-06] MEDS ORDERED: INFLUENZA VACCINE HIGH DOSE PF 65+ 0.7 ML SYR IM ONE (21:00)
[2021-01-06] MEDS: CITALOPRAM 40 MG TAB PO SCH (21:35)
[2021-01-06] MEDS: TAMSULOSIN HCL 0.4 MG CAP PO SCH (21:35)
[2021-01-06] MEDS: SODIUM CHLORIDE 0.9% 1000ML 1,000 ML IV SCH (21:37)
[2021-01-07 05:50] LABS: Hematocrit (blood only) 39.4 % (37-47); Hemoglobin 12.1 g/dL (12.0-16.0); Mean Corpuscular Hemoglobin 30.1 pg (25-34); Mean Corpuscular Hgb Conc 30.7 g/dL (32-36); Mean Platelet Volume 11.1 fL (7.4-10.4); Platelet Count 246 K/uL (130-400); RDW Coefficient of Variation 14.2 % (11.5-14.5); RDW Standard Deviation 51.2 fL (36.4-46.3); Red Blood Count 4.02 M/uL (4.2-5.4); White Blood Count 12.67 K/uL (4.8-10.8)
[2021-01-07 06:16] LABS: Calcium 7.8 mg/dl (8.5-10.1); Creatinine Clr Calc Pharmacy 66.6 ml/min; Est GFR (African American) 60.5 ml/min; Est GFR (Non-African American) 52.2 ml/min; Magnesium 2.2 mg/dl (1.8-2.4); Phosphorus 3.8 mg/dl (2.5-4.9)
[2021-01-07] MEDS ORDERED: ACETAMINOPHEN 1,000 MG/100 ML VIAL IV STA (07:49)
--- NOTE | 2021-01-07 08:15 | Urology Progress Note ---
Date of Service January 07, 2021 Assessment & Plan (1) Ureteral calculus, right: (2) Hydronephrosis: Plan: 70 yo F admitted with right renal colic secondary to an obstructing 7 mm distal right ureteral stone with moderate hydronephrosis. - Patient subjectively feeling better today. - Afebrile overnight, temp was 37.9 C this AM, receiving IV Tylenol during exam, repeat temp 38.3 C. - Lab work reviewed - creatinine 1.07, WBC 12.67 (previously 13.67). - Urine culture is pending at this time. - Discussed options for stone management including right ureteral stent placement with stone treatment at a later date. - Findings reviewed with Dr. Freitas. Given her leukocytosis, fever, and hydronephrosis in the context of an obstructing 7 mm right ureteral stone, will proceed with OR for cystoscopy and Right ureteral stent placement. - Risks and benefits to be reviewed with patient by Dr. Freitas. OR notified. - Preoperative CXR and EKG ordered. COVID testing negative. - Recommend initiating broad spectrum antibiotics now given fever this AM - discussed with hospitalist. - Keep NPO for procedure today. - She is agreeable to the plan, all questions answered. - Continue supportive care and management per primary service. Admission and Anticipated Discharge Date Admission Date: January 06, 2021 Supervising Physician Co-Signing Physician Notes Discussed patient with CARRIE. Agree with plan. Saw patient personally. Low grade temp but nonseptic appearing. Will place right stent today. Consent signed, patient marked. Recommended broad spec antibiotics to primary team prior to procedure. Subjective Patient seen and examined at bedside this AM. No acute issues overnight. Reports she slept well. Pain currently well managed, last dose of pain medication was Morphine on 01/06 at 2200. No nausea or vomiting. Denies fever or chills. Per chart review, temp this morning was 37.9. Currently asymptomatic. She is receiving IV Tylenol. Voiding without difficulty, no dysuria or hematuria. She is NPO since midnight. Review of Systems Constitutional: as per Subjective / HPI Respiratory: no dyspnea Cardiovascular: no chest pain Gastrointestinal: as per Subjective / HPI Genitourinary: as per Subjective / HPI Physical Exam Constitutional: well developed, well nourished and + obese; no acute distress and not ill appearing Respiratory: normal respiratory effort and able to speak in complete sentences; no respiratory distress and no labored breathing Cardiovascular: Extremities: no pedal edema Gastrointestinal (Abdomen): Inspection/Auscultation: abdomen normal to inspection; abdomen not distended Percussion/Palpation: abdomen soft; abdomen nontender and no guarding Neurologic: moves all extremities and awake Psychiatric: Orientation: alert and oriented x 3 Genitourinary: no CVA tenderness Results & Data ([facility]) Vital Signs (Past 12 Hours) Vital Signs Temp Pulse Resp BP Pulse Ox 01/07/21 07:44 37.9 C H 01/06/21 22:02 37.5 C 72 20 170/77 H 93 PG Care Time/CCT Total # of Minutes Spent Total Time Spent with Patient: Total time spent is greater than 50% in coordination of care (as documented) at patient's floor/unit and/or counseling patient: Coding Level of Care Code 98025 Subseq Hosp Care Lvl 2 Diagnoses Ureteral calculus, right N20.1 Hydronephrosis N13.30 Hydronephrosis type: unspecified (1) Hydronephrosis Hydronephrosis type: unspecified Qualified Code(s): N13.30 - Unspecified hydronephrosis
[2021-01-07] MEDS ORDERED: fentaNYL citrate 100 MCG/2 ML VIAL IV PRN (08:44)
[2021-01-07] MEDS ORDERED: ATROPINE SULFATE 0.1 MG/ML 10ML SYR IV PRN (08:44)
[2021-01-07] MEDS ORDERED: ePHEDrine sulfate 50 MG/ML AMP IV PRN (08:44)
[2021-01-07] MEDS ORDERED: ONDANSETRON INJ 2 MG/ML 2 ML VIAL IV PRN (08:44)
--- NOTE | 2021-01-07 08:44 | Anesthesiology Consultation ---
Date of Service January 07, 2021 Assessment & Plan (1) Encounter for pre-operative examination: Chart Review Chart Review: data entry coordinator initiated History Surgery Operation Date: 01/07/21 10:30 Proposed Procedures p Cystoscopy, Right Ureteral Stent Placement - Tomasz Freitas MD Height/Weight Height: 5 ft 4 in Weight: 136.546 kg Allergies Allergy/AdvReac Type Severity Reaction Status Date / Time adhesive Allergy Mild RED RASH Verified 01/06/21 14:48 bee venom protein (honey bee) Allergy Mild severe Verified 01/06/21 14:48 swelling, heat at bee sting site No Known Drug Allergies Allergy Unknown . Verified 01/06/21 14:48 Dust Allergy Mild sinusitis Uncoded 01/06/21 14:48 Medications Home Medications Medication Instructions Recorded Confirmed Last Taken cyanocobalamin (vitamin B-12) 1,000 mcg IM Q6M 10/25/18 01/06/21 04/25/18 1,000 mcg/mL injection kit diclofenac sodium 1 % topical gel 2 g TOPICAL TID 10/25/18 01/06/21 01/06/21 (Voltaren Arthritis Pain) guaifenesin 1,200 mg tablet, 1,200 mg PO DAILY PRN 10/25/18 01/06/21 12/30/20 extended release 12 hr (Mucinex) metronidazole 0.75 % topical cream 1 applic TOPICAL BID 10/25/18 01/06/21 01/06/21 (MetroCream) albuterol sulfate 90 mcg/actuation 2 puff INH Q4H PRN #1 inhaler 05/19/20 01/06/21 Unknown aerosol inhaler (Ventolin HFA) alendronate 70 mg tablet (Fosamax) 70 mg PO WK tab 05/19/20 01/06/21 12/30/20 cholecalciferol (vitamin D3) 25 2,000 unit PO HS tab 05/19/20 01/06/21 01/05/21 mcg (1,000 unit) tablet (Vitamin D3) citalopram 40 mg tablet (Celexa) 40 mg PO HS 01/06/21 01/06/21 01/05/21 fluticasone propionate 50 2 spray INTRANASAL HS 01/06/21 01/06/21 01/05/21 mcg/actuation nasal spray,suspension (Flonase Allergy Relief) Active Medications Generic Name Dose Route Start Last Admin Trade Name Freq PRN Reason Stop Dose Admin Citalopram Hydrobromide 40 mg 01/06/21 21:00 01/06/21 21:35 Citalopram 40 Mg Tab PO 02/05/21 20:59 40 mg HS MARÍA Administration Sodium Chloride 1,000 mls @ 80 mls/hr 01/06/21 20:45 01/06/21 21:37 Nss 1000ml IV 02/05/21 20:44 80 mls/hr .[id number] MARÍA Administration Morphine Sulfate 3 mg 01/06/21 14:50 01/06/21 22:19 Morphine Sulfate 4 Mg/Ml 1 Ml Carp\\Vial IV 01/20/21 14:49 3 mg Q3H PRN Administration Pain Tamsulosin HCl 0.4 mg 01/06/21 21:00 01/06/21 21:35 Tamsulosin Hcl 0.4 Mg Cap PO 02/05/21 20:59 0.4 mg HS MARÍA Administration NPO Date Last Intake of Fluids: 01/06/21 Time Last Intake of Fluids: 23:59 Date Last Intake of Solids: 01/06/21 Time Last Intake of Solids: 18:00 Past Medical History Medical History Allergic rhinitis Anxiety Asthma Albuterol inhaler rarely used, no daily inhaler. Depression History of kidney stones Osteoarthritis Rosacea Sleep apnea hx of, no longer had gastric bypass and repeat sleep study was negative. Pt has gained "some" weight back. Past Family History Family History Brother Family history of diabetes mellitus Grandmother (Paternal) Family history of diabetes mellitus Sister Family history of diabetes mellitus Family/Other Family history of diabetes mellitus cousins Other No family history of adverse response to anesthesia Past Surgical History Surgical History History of bilateral tubal ligation History of cholecystectomy History of colonoscopy History of dilatation and curettage History of gastric bypass History of left breast biopsy benign History of lithotripsy History of total hysterectomy with bilateral salpingo-oophorectomy (BSO) History of umbilical hernia repair x3 History of wisdom tooth extraction Social History Smoking Status: Never smoker Hx Alcohol Use: Yes Alcohol type: wine alcohol intake frequency: holidays/special occasions only Hx Substance Use: Yes substance use type: other Substance Use Type Other:: CBD Oil Last Used Substance: Days (ago) Physical Exam Vital Signs Last Vital Signs Temp 100.9 F H 01/07/21 08:23 Pulse 93 H 01/07/21 08:23 Resp 16 01/07/21 08:23 BP 126/70 01/07/21 08:23 Pulse Ox 92 01/07/21 08:23 Testing Laboratory Results 01/07/21 05:17 01/07/21 05:17 Urine Color Yellow 01/06/21 13:20 Urine Appearance Clear (Clear) 01/06/21 13:20 Urine pH 7.5 (4.5-7.5) 01/06/21 13:20 Ur Specific [place] 1.015 (1.000-1.030) 01/06/21 13:20 Urine Protein Negative (Negative) 01/06/21 13:20 Urine Glucose (UA) Negative (Negative) 01/06/21 13:20 Urine Ketones Trace (Negative) H 01/06/21 13:20 Urine Nitrite Negative (Negative) 01/06/21 13:20 Ur Leukocyte Esterase 1+ (Negative) H 01/06/21 13:20 Urine WBC (Auto) 5-10 /hpf (0-5) H 01/06/21 13:20 Urine RBC (Auto) 10-30 /hpf (0-4) H 01/06/21 13:20 U Hyaline Cast (Auto) 1-5 /lpf (0-5) 01/06/21 13:20 U Epithel Cells (Auto) >30 /lpf (0-5) H 01/06/21 13:20 Urine Bacteria (Auto) Negative (Negative) 01/06/21 13:20 Laboratory Tests 01/06/21 14:45 SARS-CoV-2 (PCR) NEGATIVE Electrocardiogram Date: 01/07/21 Normal sinus rhythm, rate 84 bpm Inferior infarct , age undetermined Abnormal ECG When compared with ECG of 26-OCT-2018 09:22, No significant change was found
--- NOTE | 2021-01-07 08:49 | History & Physical Bridge Note ---
Date of Service January 07, 2021 History & Physical Bridge Note I have examined the patient, reviewed the History & Physical and in the interval since the performance of the History & Physical I have noted the following changes of clinical significance: no changes noted
--- NOTE | 2021-01-07 08:59 | XRay Report ---
XR chest 1V portable CLINICAL HISTORY: Preoperative evaluation. Kidney stone. COMPARISON STUDY: Chest radiograph October 26, 2018. FINDINGS: Lung volumes are normal. Minimal linear left basilar opacity favors atelectasis or scarring . There is no pneumothorax or pleural effusion. Cardiac size is normal. Mediastinal contours are norm al. There is no evidence for pulmonary edema. Right hilar prominence is likely due to the right pulmo nary artery. IMPRESSION: No acute cardiopulmonary findings. ACT 112: Negative or not required by law. Electronically signed by: Aquiles Wong M.D. 01/07/2021 8:57 AM
[2021-01-07] MEDS: cefTRIAXone SODIUM 2,000 MG in DEXTROSE 5% 50 ML IV SCH (09:56)
[2021-01-07] MEDS ORDERED: fentaNYL citrate 100 MCG/2 ML VIAL ONE (10:06)
[2021-01-07] MEDS ORDERED: MIDAZOLAM HCL 1 MG/ML 2ML VIAL ONE (10:06)
[2021-01-07] MEDS ORDERED: KETAMINE 50 MG/5 ML SYRINGE ONE (10:52)
[2021-01-07] MEDS ORDERED: PROPOFOL IV EMULSION 10 MG/ML 20 ML VIAL IV ONE (10:54)
[2021-01-07] MEDS ORDERED: LIDOCAINE 2% 2 ML VIAL/AMP(20MG/ML) INFIL ONE (10:54)
[2021-01-07] MEDS ORDERED: ONDANSETRON INJ 2 MG/ML 2 ML VIAL ONE (11:06)
--- NOTE | 2021-01-07 11:14 | Post Operative Brief Note ---
PG Immediate Post Op with CF Date of Surgery January 07, 2021 Pre & Post Diagnosis Operation Date: 01/07/21 09:20 <No data on this case meets the specified criteria> I identified the patient and participated in the time-out.: Yes Procedure Operation Date: 01/07/21 09:20 <No data on this case meets the specified criteria> Cystoscopy, Right retrograde pyelogram, right ureteral stent placement Surgeon Tomasz Freitas MD Manager Speech None Estimated Blood Loss 0 Findings Consistent with Post-Op Diagnosis Stent in good position. Stone noted in bladder at end of case, unclear if that was stone that was previously obstructing. Opted to leave stent regardless due to concern for infection Specimens Specimen Description: Stone in bladder Drains Campa Catheter and Other (6x26 R stent ) Complications None Disposition Accompanied Patient To Recovery: No Disposition: Recovery Room Overlapping Procedure I was present for: the critical portions of procedure.
--- NOTE | 2021-01-07 11:15 | Hospitalist Progress Note ---
Date of Service January 07, 2021 Assessment & Plan (1) Renal colic on right side: (2) Vomiting: (3) Ureteral calculus, right: (4) Hydronephrosis: Plan: This is a 70-year-old female who has significant past medical history of HLD, YECENIA not on CPAP, history of nephrolithiasis, depression, history of gastric bypass, osteoporosis who presented to ED secondary to right renal colic. CT scan abdomen pelvis reveal 7 mm obstructing R ureteral stone with moderate hydronephrosis. CT also noted 4.1 cm exophytic lesion within lower pole of right kidney, slightly increased in size - per urology, recommend outpatient follow-up with contrast enhanced CT or MRI for further evaluation. On admission patient did not meet criteria for sepsis. This morning patient developed fever of 38.3 and white blood cell count 12.67k, now suspected SIRS Started on empiric IV 2g rocephin, await urine culture and obtain blood culture Continue IVF Obstructing R ureteral stone with moderate hydronephrosis urology on board - plan to go to OR today for cysto with R ureteral stent placem ent Gentle IVF, flomax, strain all the urine await urine/blood culture pain control, antiemetics EKG & CXR reviewed, ok to proceed, had stress test 12/29/20 no inducible ischemia EF 55%, grade I DD Hypoxia encourage incentive spirometry wean o2 as able hx of YECENIA - pt no longer on cpap and has not seen sleep medicine in a while may need nocturnal pulse ox 4.1 cm Exophytic lesion within lower pole of right kidney incidental finding on CT per urology, recommend outpatient follow-up with contrast enhanced CT or MRI for further evaluation. Breast nodules, incidental finding on CT few small b/l breast nodules noted on CT, largest on L measuring 1cm. Indeterminate but could represent small cysts Recommend dedicated nonemergent mammogram as outpt pt had mammogram on 12/16/20 as OP and dedicated R on 12/29/20 - which recommends sterotactic bx, scheduled on 01/09 Elevated BP no hx of HTN as outpt likely in setting of pain BP 133/72 currently hydralazine ordered, but not administered monitor Asthma well controlled no acute exacerbation home inhalers as needed Depression cont. celexa Morbid obesity, BMI ~52 s/p gastric bypass counseling and outpt follow up Dispo: to OR today for stent placement, likely to remain in hospital for another 1-2 days DVT ppx: SCDs Code: DNR/DNI Pt was seen and examined in collaboration with Dr. Bertrand, please see addendum Admission and Anticipated Discharge Date Admission Date: January 06, 2021 Supervising Physician Co-Signing Physician Notes Patient is seen and examined at bedside. Patient had ureteral stent placement earlier today. Patient feels well postoperatively. She denies any significant flank pain. Also denies hematuria, dysuria, chest pain, shortness of breath, dizziness. Febrile this morning. Empirically started on Rocephin. Patient is morbidly obese, no apparent distress, normocephalic atraumatic, EOMI, lungs are clear to auscultation, normal breath sounds, S1-S2, no murmur, no pedal edema, abdomen soft, nontender, right flank mild tenderness, alert, awake, oriented, g rossly no focal deficits. Right ureteral calculus, obstructive uropathy. S/P ureteral stent placement. Appreciate urology input. Continue Flomax, IV fluids and empiric Rocephin. Follow-up on cultures. I personally reviewed the record. Patient is interviewed and examined at bedside. Patient's care is coordinated with Jenny Mahmood PA-C. Please refer to the documentation above for details of patient's presentation and for discussion of other issues. Subjective Patient was seen and examined in room 376. Follow-up right renal colic secondary to obstructing 7 mm distal right ureteral stone with moderate hydronephrosis. She is lying in bed without complaint. She states she received morphine prior to going to sleep last evening and currently denies pain. She complains of feeling sweaty but denies chills, chest pain, shortness of breath, cough, nausea, vomiting, abdominal pain, lightheadedness, dizziness. Nursing staff noted elevated temperature this morning at 37.9. Plan is for patient to go to the OR for cystoscopy and stent placement. Patient states she has had stent placement in the past as well as lithotripsy due to calcium oxalate stones and is familiar with this process. She also states approximately 1 month ago she had a stress test done which was negative for inducible ischemia. She admits to being able to climb 1 flight of stairs without getting chest pain but does states she would be short of breath. She has underlying history of asthma which she attributes her shortness of breath to. Review of Systems Review of Systems: All systems reviewed & are unremarkable except as noted in HPI & below Physical Exam Physical Exam: Gen: WD/WN, obese, F NAD, A&O x3 HEENT: Normocephalic, atraumatic, conjunctivae moist, sclerae anicteric, mucous membranes moist. Lung: Clear to Auscultation bilaterally, no wheezes/rales/rhonchi Heart: Regular rate, regular rhythm, no murmurs, rubs, or gallops Abdomen: obese abd, Soft, NT, ND +BS x 4, no cva tenderness Extremities: No edema Skin: Warm, no rash, negative turgor. Results & Data Results & Data ([facility]) Vital Signs (Past 12 Hours) Vital Signs Temp Pulse Resp BP Pulse Ox 01/07/21 10:06 37.3 C 74 22 133/72 97 01/07/21 08:23 38.3 C H 93 H 16 126/70 92 01/07/21 07:44 37.9 C H Diagnostic Findings Short CBC 01/06/21 01/07/21 Range/Units 11:35 05:17 WBC 13.67 H 12.67 H (4.8-10.8) K/uL Hgb 13.5 12.1 (12.0-16.0) g/dL Hct 44.0 39.4 (37-47) % Plt Count 299 246 (130-400) K/uL BMP 01/06/21 01/07/21 11:35 05:17 Sodium 140 141 Potassium 3.9 4.0 Chloride 105 105 Carbon Dioxide 29 32 BUN 13 15 Creatinine 0.90 1.07 Glucose 108 H 126 H Calcium 8.7 7.8 L Liver Function 01/06/21 Range/Units 11:35 Total Bilirubin 0.3 (0.2-1) mg/dl AST 21 (15-37) U/L ALT 11 L (12-78) U/L Alkaline Phosphatase 89 (45-117) U/L Albumin 3.2 L (3.4-5.0) gm/dl Urine 01/06/21 Range/Units 13:20 Urine Color Yellow Urine Appearance Clear (Clear) Urine pH 7.5 (4.5-7.5) Ur Specific [place] 1.015 (1.000-1.030) Urine Protein Negative (Negative) Urine Glucose (UA) Negative (Negative) Medications Administered Current Inpatient Medications Acetaminophen (Acetaminophen 325 Mg Tab) 650 mg PO Q4H PRN PRN Reason: fever Stop: 02/06/21 07:39 Albuterol (Albuterol Hfa 8 Gm Inhaler) 2 puffs INH Q4H PRN PRN Reason: Shortness Of Breath Stop: 02/05/21 20:19 Atropine Sulfate (Atropine Sulfate 0.1 Mg/Ml 10ml Syr) 0.5 mg IV Q1M PRN PRN Reason: PACU Use-HR<40 &/or Bradycardi Stop: 01/07/21 16:44 Citalopram Hydrobromide (Citalopram 40 Mg Tab) 40 mg PO HS [facility] Stop: 02/05/21 20:59 Last Admin: 01/06/21 21:35 Dose: 40 mg Documented by: Ephedrine Sulfate (Ephedrine Sulfate 50 Mg/Ml Amp) 5 mg IV Q5M PRN PRN Reason: PACU Use Only-SBP<90 mmHg Stop: 01/07/21 16:44 Fentanyl Citrate (Fentanyl Citrate 100 Mcg/2 Ml Vial) 25 mcg IV Q5M PRN PRN Reason: PACU Use Only-Pain Stop: 01/07/21 16:44 Hydralazine HCl (Hydralazine Hcl 20 Mg/Ml Vial) 5 mg IV Q4H PRN PRN Reason: SBP>165 Stop: 02/05/21 20:39 Sodium Chloride (Nss 1000ml) 1,000 mls @ 80 mls/hr IV .[id number] MARÍA Stop: 02/05/21 20:44 Last Admin: 01/06/21 21:37 Dose: 80 mls/hr Documented by: Ceftriaxone Sodium 2,000 mg/ (Dextrose) 70 mls @ 100 mls/hr IV Q24H MARÍA; Protocol Stop: 01/17/21 08:59 Last Admin: 01/07/21 09:56 Dose: 100 mls/hr Documented by: Morphine Sulfate (Morphine Sulfate 4 Mg/Ml 1 Ml Carp\Vial) 3 mg IV Q3H PRN PRN Reason: Pain Stop: 01/20/21 14:49 Last Admin: 01/06/21 22:19 Dose: 3 mg Documented by: Ondansetron HCl (Ondansetron Inj 2 Mg/Ml 2 Ml Vial) 4 mg IV ONCE PRN PRN Reason: PACU Use Only-Nausea/Vomiting Stop: 01/07/21 16:45 Tamsulosin HCl (Tamsulosin Hcl 0.4 Mg Cap) 0.4 mg PO HS [facility] Stop: 02/05/21 20:59 Last Admin: 01/06/21 21:35 Dose: 0.4 mg Documented by: ECG Rate (beats per minute): 84 Rhythm: normal sinus (1) Hydronephrosis Hydronephrosis type: unspecified Qualified Code(s): N13.30 - Unspecified hydronephrosis
--- NOTE | 2021-01-07 11:25 | Operative Report ---
PG Post Operative Report Pre & Post Diagnosis Right urolithiasis with concern for infection Operation Date: 01/07/21 09:20 <No data on this case meets the specified criteria> Right urolithiasis with concern for infection I identified the patient and participated in the time-out.: Yes Procedure Cystoscopy, right retrograde pyelogram with radiographic interpretation, right ureteral stent placement Operation Date: 01/07/21 09:20 <No data on this case meets the specified criteria> Surgeon Tomasz Freitas MD Cafe Team Member None Estimated Blood Loss 0 Findings Consistent with Post-Op Diagnosis 1. Right ureteral stent in good position. Right retrograde pyelogram showed moderate hydronephrosis. No obvious filling defects. 2. Stone noted in bladder at conclusion of case. Unclear if this was obstructing stone or separate stone. Opted to leave stent in place due to concern for infection. Specimens Stone in bladder Drains 1. 6 Peruvian by 26 cm right ureteral stent 2. 16 Peruvian Campa catheter with 10 cc in balloon Anesthesia Type MAC Complications None Disposition Accompanied Patient To Recovery: No Disposition: Recovery Room Indications 70-year-old female presented to the hospital was found to have a 7 mm mid right ureteral stone with hydronephrosis. Initially afebrile and low concern for infection. She was made n.p.o. at midnight in the event she would need a stent. The following morning, she had a low-grade temperature of 38.3. She was otherwise hemodynamically dynamically stable and nontoxic-appearing. Taken to the OR for right stent placement due to concern for infection. Description of Procedure After informed consent was obtained, the patient was transported operative s [facility]. MAC anesthesia was induced. The patient was placed in dorsolithotomy position prepped and draped in a sterile fashion. They received preoperative ceftriaxone for antibiotic prophylaxis. An appropriate surgical timeout was performed. A 22 [place] rigid scope was inserted per urethra into the bladder. Slaughter cystoscopy revealed no stones or lesions. I turned my attention the right ureteral orifice and intubated this with a 5 [place] open-ended catheter. A right retrograde pyelogram was shot which showed mild hydronephrosis. A sensor wire was advanced into the kidney and confirmed fluoroscopically. A 6 [place] by 26 cm right ureteral stent was deployed with a good proximal coil in the renal pelvis and a good distal coil noted in the bladder. These were confirmed fluoroscopically. Prior to withdrawing the cystoscope, there was a small stone noted in the bladder. I evacuated this out and send it for analysis. Unclear if this was the obstructing stone or a separate finding. That being said, with concern for infection, I opted to leave the stent in place and not perform any further evaluation. The bladder was left full and the scope was removed. I placed a 16 [place]ian Campa with return of urine and inflated the balloon with 10 cc of sterile water. This concluded the end of the case. All counts were correct at the end of the case. I was present, scrubbed, and actively participated for the entire to the procedure. Plan: 1. The patient remains afebrile overnight, Campa catheter can be removed tomorrow. 2. Prior to any stone intervention in the next several weeks, will repeat CT scan of the abdomen and pelvis to assess passage of stone. This will determine if she needs a ureteroscopy versus just a stent removal. I attest to the content of the Intraoperative Record and any orders documented therein. Any exceptions are noted below.
[2021-01-07] MEDS ORDERED: DIATRIZOATE MEGLUMINE 30% 100ML VIAL INSTIL PRN (11:33)
--- NOTE | 2021-01-07 11:44 | Fluoroscopy Report ---
FL retrograde includes kub HISTORY: 70 years-old Female RT STENT right-sided cystourethrogram COMPARISON: CT abdomen and pelvis 01/06/2021 TECHNIQUE: 5 spot fluoroscopic images of the right abdomen were obtained utilizing 20.2 seconds fluor oscopy time FINDINGS: There is retrograde injection of contrast into the right ureter. The first image demonstrates a dista l ureteral filling defect. Right-sided hydroureteronephrosis redemonstrated. Cannulation of the right ureter with subsequent images demonstrate deployment of a ureteral stent. The proximal portion appea rs to be in satisfactory positioning. The distal stent is not imaged. Herniorrhaphy coils redemonstra joe. IMPRESSION: Fluoroscopic assistance as above. ACT 112: Negative or not required by law. The above report was generated using voice recognition software. It may contain grammatical, syntax o r spelling errors. Electronically signed by: Grzegorz Servin M.D. 01/07/2021 11:42 AM
--- NOTE | 2021-01-07 12:03 | Anesthesiology Progress Note ---
Date of Service January 07, 2021 Anesthesia Post Procedure Vital Signs Vital Signs: Temp Pulse Pulse Pulse Resp BP BP 01/07/21 11:50 97.2 F L 70 15 147/74 H 01/07/21 11:40 70 13 123/72 01/07/21 11:30 76 14 148/68 H 01/07/21 11:23 96.8 F L 80 22 116/69 01/07/21 10:06 99.1 F 74 22 133/72 01/07/21 08:23 100.9 F H 93 H 16 126/70 01/07/21 07:44 100.2 F H 01/06/21 22:02 99.5 F 72 20 170/77 H 01/06/21 18:17 97.5 F L 66 16 168/82 H 01/06/21 17:33 74 20 176/75 H 01/06/21 17:26 78 15 157/94 H 01/06/21 17:01 66 20 192/80 H 01/06/21 16:42 74 20 166/89 H 01/06/21 16:31 131/90 01/06/21 16:00 198/89 H 01/06/21 15:31 64 22 180/71 H 01/06/21 15:01 63 23 160/86 H 01/06/21 14:31 66 22 180/106 H 01/06/21 14:00 75 18 179/89 H 01/06/21 13:31 16 189/65 H 01/06/21 13:01 67 15 156/110 H 01/06/21 12:40 66 19 01/06/21 12:31 67 16 01/06/21 12:13 63 16 211/101 H Pulse Ox 01/07/21 11:50 94 01/07/21 11:40 94 01/07/21 11:30 90 01/07/21 11:23 96 01/07/21 10:06 97 01/07/21 08:23 92 01/07/21 07:44 01/06/21 22:02 93 01/06/21 18:17 93 01/06/21 17:33 95 01/06/21 17:26 95 01/06/21 17:01 01/06/21 16:42 01/06/21 16:31 01/06/21 16:00 01/06/21 15:31 96 01/06/21 15:01 98 01/06/21 14:31 99 01/06/21 14:00 01/06/21 13:31 92 01/06/21 13:01 92 01/06/21 12:40 91 01/06/21 12:31 90 01/06/21 12:13 92 Pain Intensity Right Flank: Pain Intensity: 5 Transfer of Care Handoff Completed per policy Notes Mental Status: alert / awake / arousable and participated in evaluation Patient Amnestic to Procedure: Yes Nausea / Vomiting: adequately controlled Pain: adequately controlled Airway Patency, RR, SpO2: stable & adequate BP & HR: stable & adequate Hydration State: stable & adequate Anesthetic Complications: no major complications apparent and Pt Satisfied with anesthetic care
[2021-01-07] MEDS: SODIUM CHLORIDE 0.9% 1000ML 1,000 ML IV SCH (12:22)
--- NOTE | 2021-01-07 17:51 | Electrocardiogram Report ---
Test Reason : Blood Pressure : / mmHG Vent. Rate : 084 BPM Atrial Rate : 084 BPM P-R Int : 144 ms QRS Dur : 086 ms QT Int : 384 ms P-R-T Axes : 055 002 031 degrees QTc Int : 453 ms Normal sinus rhythm possible Inferior infarct , age undetermined Abnormal ECG When compared with ECG of 26-OCT-2018 09:22, No significant change was found Confirmed by Len Turner ([id number]) on 01/07/2021 5:51:21 PM Referred By: REFERRED SELF Confirmed By:Driss Turner
[2021-01-07] MEDS: CITALOPRAM 40 MG TAB PO SCH (20:18)
[2021-01-07] MEDS: hydrALAZINE HCL 20 MG/ML VIAL IV PRN (20:18)
[2021-01-07] MEDS: TAMSULOSIN HCL 0.4 MG CAP PO SCH (20:18)
[2021-01-07] MEDS: ACETAMINOPHEN 325 MG TAB PO PRN (22:59)
[2021-01-08] MEDS: SODIUM CHLORIDE 0.9% 1000ML 1,000 ML IV SCH ×2 (00:38→14:54)
[2021-01-08] MEDS ORDERED: CIPROFLOXACIN / D5W 400 MG/200 ML BAG IV SCH (06:00)
[2021-01-08 06:33] LABS: Hemoglobin 10.9 g/dL (12.0-16.0); Mean Corpuscular Hemoglobin 29.5 pg (25-34); Mean Corpuscular Hgb Conc 30.3 g/dL (32-36); Mean Corpuscular Volume 97.6 fL (80-100); Mean Platelet Volume 10.8 fL (7.4-10.4); Platelet Count 216 K/uL (130-400); RDW Coefficient of Variation 14.4 % (11.5-14.5); RDW Standard Deviation 51.8 fL (36.4-46.3); Red Blood Count 3.69 M/uL (4.2-5.4)
[2021-01-08 07:07] LABS: BUN Creatinine Ratio 16.7 (10-20); Calcium 7.7 mg/dl (8.5-10.1); Est GFR (African American) 92.9 ml/min; Est GFR (Non-African American) 80.2 ml/min; Magnesium 2.2 mg/dl (1.8-2.4); Potassium 3.6 mmol/L (3.5-5.1)
[2021-01-08] MEDS: ACETAMINOPHEN 325 MG TAB PO PRN ×2 (07:54→19:40)
[2021-01-08] MEDS: cefTRIAXone SODIUM 2,000 MG in DEXTROSE 5% 50 ML IV SCH (08:48)
--- NOTE | 2021-01-08 08:48 | Urology Progress Note ---
Date of Service January 08, 2021 Assessment & Plan (1) Ureteral calculus, right: (2) Hydronephrosis: Plan: - Pt POD#1 s/p Cystoscopy, Right Retrograde Pyelogram, Right Ureteral Stent Placement with Dr. Freitas. - Febrile yesterday evening, Tmax 38.8C on 01/07 @ 2230. - Afebrile this morning. - Lab work reviewed - creatinine 0.75, WBC 8.40. - Urine culture prelim no growth, BCx pending - follow cultures, continue IV Ceftriaxone per primary service. - Tolerating right ureteral stent with minimal bother. - Recommend maintain Campa catheter at this time - remove after afebrile x [address] Freitas. - Okay to d/c from perspective when afebrile x 24 hours, medically stable. - Recommend d/c with course of PO antibiotics, Tamsulosin, prn Pyridium and prn pain medication for stent management. - Expected clinical course reviewed, all questions answered. - Will arrange outpatient follow-up with our service to discuss definitive stone management. Thank you for allowing us to participate in the acute care of Ms. Worrell. Please reconsult us with additional questions, concerns or changes in patient status. Admission and Anticipated Discharge Date Admission Date: January 06, 2021 Supervising Physician Co-Signing Physician Notes Discussed patient with CARRIE. Agree with plan. Subjective 70 yo F POD #1 s/p Cystoscopy, Right Retrograde Pyelogram, Right Ureteral Stent Placement with Dr. Freitas. Patient seen and examined at bedside this AM. She is awake, alert and sitting up in bed. No flank or abdominal pain. Reports she had Tylenol this morning for a headache. Notes some bother from Campa catheter - urgency sensation. No dysuria. Campa catheter intact, patent and draining clear light pink urine. She endorses episode of fever/chills last night. Tmax 38.8C on 01/07 @2230. Denies fever or chills at present. No nausea or vomiting. She reports to me that she called to reschedule her upcoming breast biopsy. Review of Systems Constitutional: as per Subjective / HPI Gastrointestinal: as per Subjective / HPI Genitourinary: as per Subjective / HPI Physical Exam Constitutional: well developed, well nourished and + obese; no acute distress and not ill appearing Respiratory: normal respiratory effort and able to speak in complete sentences; no respiratory distress and no labored breathing Cardiovascular: Extremities: no pedal edema Gastrointestinal (Abdomen): Inspection/Auscultation: abdomen normal to inspection; abdomen not distended Neurologic: moves all extremities and awake Psychiatric: Orientation: alert and oriented x 3 Genitourinary: Campa catheter intact, patent and draining clear light pink urine Results & Data ([facility]) Vital Signs (Past 12 Hours) Vital Signs Temp Pulse Resp BP Pulse Ox 01/08/21 07:11 37.3 C 85 17 144/71 H 94 01/08/21 04:54 92 01/08/21 04:15 37.0 C 75 16 135/86 98 01/07/21 22:30 38.8 C H 87 16 147/70 H 95 PG Care Time/CCT Total # of Minutes Spent Total Time Spent with Patient: Total time spent is greater than 50% in coordination of care (as documented) at patient's floor/unit and/or counseling patient: Coding Level of Care Code 42155 Subseq Hosp Care Lvl 2 Diagnoses Ureteral calculus, right N20.1 Hydronephrosis N13.30 Hydronephrosis type: unspecified (1) Hydronephrosis Hydronephrosis type: unspecified Qualified Code(s): N13.30 - Unspecified hydronephrosis
--- NOTE | 2021-01-08 09:59 | Hospitalist Progress Note ---
Date of Service January 08, 2021 Assessment & Plan (1) Renal colic on right side: (2) Vomiting: (3) Ureteral calculus, right: (4) Hydronephrosis: Plan: This is a 70-year-old female who has significant past medical history of HLD, YECENIA not on CPAP, history of nephrolithiasis, depression, history of gastric bypass, osteoporosis who presented to ED secondary to right renal colic. CT scan abdomen pelvis reveal 7 mm obstructing R ureteral stone with moderate hydronephrosis. CT also noted 4.1 cm exophytic lesion within lower pole of right kidney, slightly increased in size - per urology, recommend outpatient follow-up with contrast enhanced CT or MRI for further evaluation. On admission patient did not meet criteria for sepsis. This morning patient developed fever of 38.3 and white blood cell count 12.67k, now suspected SIRS Started on empiric IV 2g rocephin, await urine culture and obtain blood culture Continue IVF Obstructing R ureteral stone with moderate hydronephrosis POD # 1 s/p cysto with R ureteral stent placement Urine cx without growth. Blood cx pending Will plan to discharge on PO abx course due to fever last evening Maintain Campa catheter at this time - remove after afebrile x [address] Freitas Plan to dc on Flomax, PRN pyridium PRN pain mgmt, urology follow up Pain control, antiemetics Hypoxia encourage incentive spirometry wean o2 as able hx of YECENIA - pt no longer on cpap and has not seen sleep medicine in a while may need nocturnal pulse ox 4.1 cm Exophytic lesion within lower pole of right kidney incidental finding on CT per urology, recommend outpatient follow-up with contrast enhanced CT or MRI for further evaluation. Breast nodules, incidental finding on CT few small b/l breast nodules noted on CT, largest on L measuring 1cm. Indeterminate but could represent small cysts Recommend dedicated nonemergent mammogram as outpt pt had mammogram on 12/16/20 as OP and dedicated R on 12/29/20 - which recommends sterotactic bx, scheduled on 01/09 Elevated BP no hx of HTN as outpt likely in setting of pain BP 133/72 currently hydralazine ordered, but not administered monitor Asthma well controlled no acute exacerbation home inhalers as needed Depression cont. celexa Morbid obesity, BMI ~52 s/p gastric bypass counseling and outpt follow up Dispo: Admitted to med tele DVT ppx: SCDs Code: DNR/DNI Pt was seen and examined in collaboration with Dr. Bertrand, please see addendum Admission and Anticipated Discharge Date Admission Date: January 06, 2021 Supervising Physician Co-Signing Physician Notes Patient is seen and examined at bedside. Febrile overnight. Flank pain monitor is improved. Blood-tinged urine noted on urinary catheter. No other complaints. Denies, dysuria, chest pain, shortness of breath, dizziness. Continue empiric Rocephin. On exam patient is morbidly obese, no apparent distress, normocephalic atraumatic, EOMI, lungs are clear to auscultation, normal breath sounds, S1-S2, no murmur, no pedal edema, abdomen soft, nontender, normal bowel sounds, alert, awake, oriented, grossly no focal deficits. Right ureteral calculus, obstructive uropathy. S/P ureteral stent placement. Blood, urine culture negative to date. Appreciate urology input. Continue Flomax, Rocephin. Needs follow-up with urology upon discharge. Agree with Pyridium as needed. Further work-up of exophytic lesion of the right kidney as outpatient. I personally reviewed the record. Patient is interviewed and examined at bedside. Patient's care is coordinated with Karley Rodriguez PA-C. Please refer to the documentation above for details of patient's presentation and for discussion of other issues. Subjective 70 yo F POD #1 s/p Cystoscopy, Right Retrograde Pyelogram, Right Ureteral Stent Placement with Dr. Freitas. Seen and examined in 376-1. Feeling well, denying any abdominal or flank pain Reports she had Tylenol this morning for a headache that has resolved Campa catheter intact, draining light pink urine Tmax 38.8 C on 01/07 @2230, afebrile since then No lightheadedness, CP, SOB, N/V/D Review of Systems Review of Systems: At least ten systems reviewed and negative except as noted in the HPI. Physical Exam Physical Exam: Gen: WD/WN, obese, lying in bed comfortably, NAD, A&O x3 HEENT: Normocephalic, atraumatic, conjunctivae moist, sclerae anicteric, mucous membranes moist. Lung: Clear to Auscultation bilaterally, no wheezes/rales/rhonchi Heart: Regular rate, regular rhythm, no murmurs, rubs, or gallops Abdomen: soft, NT, ND +BS x 4, no cva tenderness : Campa catheter with pink tinged urine in collection bag Extremities: No edema Skin: Warm, no rash, negative turgor Results & Data Results & Data ([facility]) Vital Signs (Past 12 Hours) Vital Signs Temp Pulse Resp BP Pulse Ox 01/08/21 07:11 37.3 C 85 17 144/71 H 94 01/08/21 04:54 92 01/08/21 04:15 37.0 C 75 16 135/86 98 01/07/21 22:30 38.8 C H 87 16 147/70 H 95 Laboratory Results Short CBC 01/08/21 Range/Units 06:15 WBC 8.40 (4.8-10.8) K/uL Hgb 10.9 L (12.0-16.0) g/dL Hct 36.0 L (37-47) % Plt Count 216 (130-400) K/uL BMP 01/08/21 06:15 Sodium 139 Potassium 3.6 Chloride 106 Carbon Dioxide 31 BUN 13 Creatinine 0.75 D Glucose 99 Calcium 7.7 L Diagnostic Findings Abdomen/Pelvis CT 01/06/21 11:[address] WITHOUT CONTRAST CT DOSE: 1845.96 mGy.cm HISTORY: rt flank pain TECHNIQUE: Multiaxial CT images of the abdomen and pelvis were performed without contrast. A dose lowering technique was utilized adhering to the principles of ALARA. COMPARISON STUDY: KUB 02/14/2020. Abdomen and pelvis CT 01/15/2019. FINDINGS: Left basilar linear densities consistent with subsegmental atelectasis. No pneumoperitoneum. No pneumatosis. There are few small bilateral breast nodules with the largest on the left measuring 1 cm. These are indeterminate but could represent small cysts. Follow-up nonemergent dedicated mammogram is recommended for further evaluation. Prior ventral hernia mesh repair. The bladder is decompressed and therefore not well evaluated. Prior hysterectomy. No pelvic free fluid. There is a 7 mm obstructing stone within the distal right ureter at the level of the iliac vessels on image 345. This results in moderate right hydroureteronephrosis. There are multiple additional bilateral renal calculi measuring up to 4 mm. Multiple bilateral renal hypodense lesions are again noted. These are incompletely characterized on this noncontrast study but statistically represent cysts. Dominant lesion within the lower pole of the right kidney measures 4.1 cm. This previously measured 3.8 cm. This does not clearly represent a simple cyst. Postoperative changes consistent with prior gastric bypass. There is a small hiatus hernia. Suboptimal evaluation for bowel pathology due to the lack of intravenous and oral contrast. However, there is no definite bowel wall thickening or obstruction. Colonic diverticulosis. No evidence for acute diverticulitis. Normal appendix. Cholecystectomy. There are few hypodense lesions within the liver which remain stable. Therefore, these likely represent cysts. The unenhanced pancreas, spleen, and adrenal glands are unremarkable. IMPRESSION: 1. A 7 mm obstructing stone within the distal right ureter resulting in moderate right hydronephrosis. 2. Bilateral nephrolithiasis. 3. A 4.1 cm exophytic lesion within the lower pole of the right kidney which has slightly increased in size. This does not clearly represent a simple cyst. Therefore, follow-up nonemergent dedicated renal ultrasound is recommended to exclude the less likely possibility of a complex cyst/mass. 4. There are few small bilateral breast nodules with the largest on the left measuring 1 cm. These are indeterminate but could represent small cysts. Follow- up nonemergent dedicated mammogram is recommended for further evaluation. ACT 112: Positive. There are findings on this exam that require communication between the performing entity and the patient following Patient Test Result Information Act ([place] Act 112) guidelines. Electronically signed by: Anupam Iniguez M.D. 01/06/2021 12:27 PM Chest X-Ray 01/07/21 08:15 XR chest 1V portable CLINICAL HISTORY: Preoperative evaluation. Kidney stone. COMPARISON STUDY: Chest radiograph October 26, 2018. FINDINGS: Lung volumes are normal. Minimal linear left basilar opacity favors atelectasis or scarring. There is no pneumothorax or pleural effusion. Cardiac size is normal. Mediastinal contours are normal. There is no evidence for pulmonary edema. Right hilar prominence is likely due to the right pulmonary artery. IMPRESSION: No acute cardiopulmonary findings. ACT 112: Negative or not required by law. Electronically signed by: Aquiles Wong M.D. 01/07/2021 8:57 AM Retrograde Pyelogram 01/07/21 10:30 FL retrograde includes kub HISTORY: 70 years-old Female RT STENT right-sided cystourethrogram COMPARISON: CT abdomen and pelvis 01/06/2021 TECHNIQUE: 5 spot fluoroscopic images of the right abdomen were obtained utilizing 20.2 seconds fluoroscopy time FINDINGS: There is retrograde injection of contrast into the right ureter. The first image demonstrates a distal ureteral filling defect. Right-sided hydroureteronephrosis redemonstrated. Cannulation of the right ureter with subsequent images demonstrate deployment of a ureteral stent. The proximal portion appears to be in satisfactory positioning. The distal stent is not imaged. Herniorrhaphy coils redemonstrated. IMPRESSION: Fluoroscopic assistance as above. ACT 112: Negative or not required by law. The above report was generated using voice recognition software. It may contain grammatical, syntax or spelling errors. Electronically signed by: Grzegorz Servin M.D. 01/07/2021 11:42 AM (1) Hydronephrosis Hydronephrosis type: unspecified Qualified Code(s): N13.30 - Unspecified hydronephrosis
[2021-01-08] MEDS: hydrALAZINE HCL 20 MG/ML VIAL IV PRN (19:40)
[2021-01-08] MEDS: CITALOPRAM 40 MG TAB PO SCH (20:19)
[2021-01-08] MEDS: TAMSULOSIN HCL 0.4 MG CAP PO SCH (20:19)
[2021-01-09] MEDS: SODIUM CHLORIDE 0.9% 1000ML 1,000 ML IV SCH (03:08)
[2021-01-09 06:32] LABS: Hematocrit (blood only) 37.1 % (37-47); Hemoglobin 11.1 g/dL (12.0-16.0); Mean Corpuscular Hemoglobin 29.4 pg (25-34); Mean Corpuscular Hgb Conc 29.9 g/dL (32-36); Mean Corpuscular Volume 98.4 fL (80-100); Mean Platelet Volume 11.1 fL (7.4-10.4); Platelet Count 230 K/uL (130-400); RDW Coefficient of Variation 14.3 % (11.5-14.5); RDW Standard Deviation 51.3 fL (36.4-46.3); Red Blood Count 3.77 M/uL (4.2-5.4); White Blood Count 6.95 K/uL (4.8-10.8)
[2021-01-09 07:10] LABS: Calcium 7.8 mg/dl (8.5-10.1); Creatinine Clr Calc Pharmacy 114.9 ml/min; Est GFR (African American) 105.1 ml/min; Est GFR (Non-African American) 90.7 ml/min
[2021-01-09] MEDS: ACETAMINOPHEN 325 MG TAB PO PRN (07:52)
[2021-01-09] MEDS: cefTRIAXone SODIUM 2,000 MG in DEXTROSE 5% 50 ML IV SCH (07:53)
--- NOTE | 2021-01-09 12:13 | Discharge Summary ---
Date of Service January 09, 2021 Admission HPI Per Admitting Provider Pt is a 70 y/o female with a hx of nephrolithiasis, asthma, dyslipidemia, morbid obesity (BMI ~52), history of gastric bypass surgery, FLEMING, and vitamin B12 deficiency presents with right flank pain. Pt has a history of nephrolithiasis, follows closely with [facility]. Today pt experienced R flank pain radiating to her groin, nausea and vomiting. Says nausea and vomiting are new for her, usually experienced only severe pain. Denies having any hematuria, or dysuria, or any difficulty passing urine. Denies fevers, chills, chest pain, shortness of breath, RASHID, constipation or diarrhea. Of note, pt reports having chest pain some more recent time ago, and underwent stress test which was reportedly normal. In the ED, pt was hypertensive, she tells me she does not atke any BP meds on regular basis, as her BP is usually controlled. On my evaluation pt is already comfortable and denies any significant pain, she is also willing to try to eat, as her nausea and vomiting are controlled now. In the ED, CT abdomen pelvis was obtained - significant for 7 mm obstructing R ureteral stone. Pt received morphine and antiemetics. I contacted urology and pt was seen by their service while in ER. Admission Exam Per Admitting Provider Musculoskeletal: no cyanosis or clubbing, extremities motor strength 5/5 Skin: no rashes, warm and dry Neurologic: PERRL, EOMI, accommodation nl, no face palsy, no dysarthria Psychiatric: A+Ox3, euthymic affect Genitourinary: + CVA tenderness (Right) Lymphatic: no lymphedema Principal Diagnosis Right obstructing ureteral stone Discharge Exam Gen: WD/WN, obese, lying in bed comfortably, NAD, A&O x3 HEENT: Normocephalic, atraumatic, conjunctivae moist, sclerae anicteric, mucous membranes moist. Lung: Clear to Auscultation bilaterally, no wheezes/rales/rhonchi Heart: Regular rate, regular rhythm, no murmurs, rubs, or gallops Abdomen: soft, NT, ND +BS x 4, no cva tenderness : Campa catheter with pink tinged urine in collection bag Extremities: No edema Skin: Warm, no rash, negative turgor Discharge Data Allergies Allergy/AdvReac Type Severity Reaction Status Date / Time adhesive Allergy Mild RED RASH Verified 01/06/21 14:48 bee venom protein (honey bee) Allergy Mild severe Verified 01/06/21 14:48 swelling, heat at bee sting site No Known Drug Allergies Allergy Unknown . Verified 01/06/21 14:48 Dust Allergy Mild sinusitis Uncoded 01/06/21 14:48 Consultations 01/06/21 14:43 ED Decision to Admit Stat 01/06/21 15:00 Consult Urology Routine Procedures Performed Operation Date: 01/07/21 09:20 Actual Procedures p Cystoscopy, Right Retrograde Pyelogram, Right Ureteral Stent Placement(Right) - Tomasz Freitas MD Ordered Studies 01/06/21 11:23 CT abd pelvis wo con Stat 01/07/21 10:30 FL retrograde includes kub Routine Hospital Course (1) Ureteral calculus, right: (2) Hydronephrosis: (3) Anxiety: (4) Depression: This is a 70-year-old female who has significant past medical history of HLD, YECENIA not on CPAP, history of nephrolithiasis, depression, history of gastric bypass, osteoporosis who presented to ED secondary to right renal colic. CT scan abdomen pelvis reveal 7 mm obstructing R ureteral stone with moderate hydronephrosis. Underwent R ureteral stent placement on 01/[address] Freitas of urology and pain has resolved now that stent is in place. Urine culture without growth but did develop fever the evening of urological procedure so was observed for an additional 24 hrs without recurrence of fever. Campa catheter removed and patient urinating without issue. Discharging home on Cefdinir to complete antibiotic course. Will also continue Flomax and PRN Pyridium per urology. Urology office has coordinated follow up with patient. Patient asymptomatic and hemodynamically stable at time of discharge. Total Time Total Time Spent Total Time Spent (In Minutes): 35 Discharge Plan Discharge Items Patient Disposition: Home - Self-Care Reason For Visit: RENAL COLIC Discharge Diagnosis: Ureteral stone s/p stent Activity: Resume your previous activity Non-emergency contact: Primary Care Provider and Urologist Call non-emergency contact if: you have any medication questions, your symptoms worsen and your pain is not controlled Follow-up/Referrals: Steve Machado MD [Primary Care Provider] - (Date & Time 01/12/2021 11:20 AM Provider Steve Machado MD Department [facility] ) Diet: Regular Addtl Attending Provider Instructions: [place], You were admitted with obstructing 7mm R ureteral stone and underwent R ureteral stent placement by Dr. Freitas of urology. Pain has resolved now that stent is in place. Campa catheter will be removed now that you have been fever free for 24 hours. MEDICATION CHANGES: Please continue oral course of Cefdinir antibiotic twice daily until gone. Continue Flomax daily. Pyridium has been prescribed to take up to 3 times daily for ureteral stent pain. RECOMMENDATIONS FOR FOLLOW-UP: Please follow up with primary care provider Dr. Machado on January 12 at 11:20am. Urology office will be in touch with you to set up follow up appointment. OTHER INSTRUCTIONS: Seek medical attention if you have: * temperature above 101 * chest pain or trouble breathing * abdominal pain, nausea, vomiting * diarrhea, dark stools or bloody stools * any unanswered questions or concerns Call 911 if symptoms are severe. Please take good care of yourself. Call if you have any questions or problems. You can reach a [facility] hospitalist on duty at [facility] 24 hours a day by calling [phone]. Karley Rodriguez PA-C [facility] Hospitalist Pending Studies at Discharge: No Stand-Alone Forms: My [facility], Smoking Cessation Medications and DC Order Prescriptions: New tamsulosin [Flomax] 0.4 mg capsule 0.4 mg PO DAILY Qty: 30 RF: 0 cefdinir 300 mg capsule 300 mg PO BID Qty: 6 RF: 0 phenazopyridine [Pyridium] 100 mg tablet 100 mg PO TID PRN (Reason: pain) Qty: 6 RF: 0 phenazopyridine [Pyridium] 200 mg tablet 200 mg PO TID PRN (Reason: pain) Qty: 6 RF: 0 Continued alendronate [Fosamax] 70 mg tablet 70 mg PO WK RF: 0 albuterol sulfate [Ventolin HFA] 90 mcg/actuation HFA aerosol inhaler 2 puff INH Q4H PRN (Reason: Shortness Of Breath) Qty: 1 RF: 11 metronidazole [MetroCream] 0.75 % Cream 1 applic TOPICAL BID RF: 0 Mucinex 1,200 mg Tablet Extended Release 12hr 1,200 mg PO DAILY PRN (Reason: Congestion) RF: 0 diclofenac sodium [Voltaren Arthritis Pain] 1 % Gel 2 g TOPICAL TID RF: 0 cyanocobalamin (vitamin B-12) 1,000 mcg/mL Kit 1,000 mcg IM Q6M RF: 0 cholecalciferol (vitamin D3) [Vitamin D3] 25 mcg (1,000 unit) tablet 2,000 unit PO HS RF: 0 citalopram [Celexa] 40 mg tablet 40 mg PO HS RF: 0 fluticasone propionate [Flonase Allergy Relief] 50 mcg/actuation Palmer,Suspension 2 spray INTRANASAL HS RF: 0 Discharge Orders: Discharge Order (Routine); Ordered 01/09/21 Ordered By: Karley Rodriguez Admission Data Admit Date/Time: 01/06/21 15:09 Attending Provider: Marvin Bertrand Admit Provider: Grady Curtis Primary Care Provider: Steve Machado Other Providers: Grady Curtis ; Michael Garcia ; Karley Rodriguez Other Interventions: Discharge Summary Assessment (RN) Last Done: 01/09/21 14:15 Supervising Physician Co-Signing Physician Notes Patient is seen and examined at bedside. Afebrile. Flank pain, hematuria resol kristen. Cultures remain negative. Denies, dysuria, chest pain, shortness of breath, dizziness. On exam patient is morbidly obese, no apparent distress, normocephalic atraumatic, EOMI, lungs are clear to auscultation, normal breath sounds, S1-S2, no murmur, no pedal edema, abdomen soft, nontender, normal bowel sounds, alert, awake, oriented, grossly no focal deficits. Right ureteral calculus, obstructive uropathy. S/P ureteral stent placement. Blood, urine culture negative to date. Appreciate urology input. Continue Flomax, Pyridium PRN. Needs follow-up with urology upon discharge. Further work-up of exophytic lesion of the right kidney as outpatient. I personally reviewed the record. Patient is interviewed and examined at bedside. Patient's care is coordinated with Karley Rodriguez PA-C. Please refer to the documentation above for details of patient's presentation and for discussion of other issues.
[2021-01-12 14:07] LABS: Component 2 DNR; Source URETER STONE
== END 2021-01-09 15:36 | disposition home or self-care (01) | DRG 660 ==
LOC: ED 11:02 → SUATTDRO 15:09 → 3N 15:09
DX: Z20.822 Contact with and (suspected) exposure to COVID-19; N13.2 Hydronephrosis with renal and ureteral calculous obstruction; Z66 Do not resuscitate; R50.9 Fever, unspecified; N63.10 Unspecified lump in the right breast, unspecified quadrant; F32.9 Major depressive disorder, single episode, unspecified; J45.909 Unspecified asthma, uncomplicated; E66.01 Morbid (severe) obesity due to excess calories; Z87.442 Personal history of urinary calculi; N28.89 Other specified disorders of kidney and ureter; R03.0 Elevated blood-pressure reading, without diagnosis of hypertension; N21.0 Calculus in bladder; Z77.22 Contact with and (suspected) exposure to environmental tobacco smoke (acute) (chronic); Z91.048 Other nonmedicinal substance allergy status; R09.02 Hypoxemia; F41.9 Anxiety disorder, unspecified; Z91.030 Bee allergy status; Z98.84 Bariatric surgery status; Z68.43 Body mass index [BMI] 50.0-59.9, adult; Z79.899 Other long term (current) drug therapy; N63.20 Unspecified lump in the left breast, unspecified quadrant; D72.829 Elevated white blood cell count, unspecified; M81.0 Age-related osteoporosis without current pathological fracture

== ENCOUNTER 2024-03-08 06:12 | Observation (INO) ==
[2024-03-08] MEDS: ONDANSETRON INJ 2 MG/ML 2 ML VIAL IV STA (06:38)
[2024-03-08] MEDS: SODIUM CHLORIDE 0.9% 500 ML IV ONE (06:38)
[2024-03-08] MEDS: ACETAMINOPHEN 1,000 MG/100 ML VIAL IV STA (06:38)
[2024-03-08] MEDS: KETOROLAC TROMETHAMINE 15 MG/ML VIAL IV STA (06:39)
[2024-03-08 06:44] LABS: Basophils # (auto) 0.06 K/uL (0.00-0.20); Basophils % (auto) 0.4 %; Eosinophils % (auto) 0.6 %; Hematocrit (blood only) 40.5 % (37.0-47.0); Immature Granulocytes # (auto) 0.07 K/uL (0.01-0.20); Immature Granulocytes % (auto) 0.4 %; Lymphocytes # (auto) 1.99 K/uL (1.20-3.40); Lymphocytes % (auto) 12.8 %; Mean Corpuscular Hemoglobin 27.8 pg (25.0-34.0); Mean Corpuscular Hgb Conc 29.6 g/dL (32.0-36.0); Mean Platelet Volume 10.8 fL (9.4-12.4); Monocytes # (auto) 0.96 K/uL (0.11-0.59); Monocytes % (auto) 6.2 %; Neutrophils # (auto) 12.41 K/uL (1.40-6.50); Neutrophils % (auto) 79.6 %; Platelet Count 289 K/uL (130-400); RDW Coefficient of Variation 13.9 % (11.5-14.5); RDW Standard Deviation 48.3 fL (36.4-46.3); Red Blood Count 4.31 M/uL (4.20-5.40); White Blood Count 15.59 K/ul (4.8-10.8)
--- NOTE | 2024-03-08 06:58 | Emergency Department Note ---
Impression & Plan Acute appendicitis, Nausea & vomiting, Acute right flank pain ED Provider Note NAME: EMILY WALKER AGE: 73 SEX: F : 1950 ARRIVES VIA: Walk-In INFORMANT: Patient ED PROVIDER(S): Kael Graf MD CHIEF COMPLAINT: Right flank and abdominal pain. Nausea, vomiting. PLAN: Disposition: Admit MEDICAL DECISION MAKING: The patient is a pleasant 73-year-old woman with a past medical history of nephrolithiasis, asthma presents to the emergency department via walk-in clinic accompanied by her for evaluation of acute onset of right flank pain with nausea and vomiting this morning in the setting of having known right-sided kidney stones. Patient reports she is familiar with this pain and is confident it is her kidney stone. She denies any blood or burning urination. She denies any fevers. She reports she vomited too many times to count prior to coming to the hospital. She denies chest pain or shortness of breath. On arrival the patient is no distress, afebrile with blood pressure in the 200s/90s in the setting of her discomfort and O2 saturation 91% on room air placed on 2 L nasal cannula. The patient has mild right flank/rlq discomfort without discrete tenderness. There is no guarding or rebound. WBC 15.5 K with neutrophilia but no left shift. H/H and platelets within normal limits. Chemistry without metabolic acidosis. BUNs/creatinine is 22 consistent with patient's clinically dry appearance. LFTs unremarkable. Lipase is normal. UA is suspicious for infection with WBCs and 4+ bacteria. Treatment initiated with IV hydration, IV morphine, IV APAP, Zofran and Toradol. CT of the abdomen pelvis was performed and demonstrates acute uncomplicated appendicitis. There is no bowel obstruction or pneumoperitoneum. Nonobstructing bilateral nephrolithiasis is described. Patient's known complex cystic lesion of the left kidney appears similar to prior and has been monitored yearly for which patient is aware. Patient's chest x-ray describes right hilar opacity which correlates with previously described prominence of the right pulmonary artery. This finding was reviewed with the patient so she may be aware for follow-up imaging if not obtained during this hospitalization. CT findings of appendicitis reviewed with the patient and she does agree with general surgery consultation. IV ceftriaxone administered. Case was discussed with Bong Rodgers General Surgery DIRECTOR OF PURCHASING with Dr. Purdy, general surgery on-call. Appreciate consultation recommendations. They will take the patient directly to the OR from the emergency department. They will reassess disposition subsequently. Further management and disposition per general surgery. Triage Nursing notes reviewed and agree them. Prior/external medical records reviewed Vital Signs: reviewed Differential diagnosis: Renal colic, UTI, appendicitis, diverticulitis, mesenteric ischemia, aortic pathology, infections, inflammatory bowel disease, PUD, biliary pathology, as well as other pathologies. ER treatment provided: See below. Diagnostics interpreted by me: Cardiac Monitoring: An order for continuous cardiac monitoring was placed and demonstrated normal sinus rhythm, 69 bpm, no ectopy. Laboratory studies: See below Imaging studies: See below Consultation(s): Bong Rodgers General Surgery [place] with Dr. Purdy, general surgery on-call. HPI: The patient is a pleasant 73-year-old woman with a past medical history of nephrolithiasis, asthma presents to the emergency department via walk-in clinic accompanied by her for evaluation of acute onset of right flank pain with nausea and vomiting this morning in the setting of having known right-sided kidney stones. Patient reports she is familiar with this pain and is confident it is her kidney stone. She denies any blood or burning urination. She denies any fevers. She reports she vomited too many times to count prior to coming to the hospital. She denies chest pain or shortness of breath. ROS: See above HPI for pertinent positives & negatives. A total of 10 systems reviewed and were otherwise negative. VITALS:See Below PHYSICAL EXAMINATION: GENERAL: Awake, alert, uncomfortable but in no acute distress, BMI 50.5 HENT: Normocephalic, atraumatic. Oropharynx with dry mucous membranes and otherwise unremarkable. EYES: Normal conjunctiva. Sclera non-icteric. NECK: Supple. No nuchal rigidity. FROM. No JVD. RESPIRATORY: Clear to auscultation. CARDIAC: Regular rate, normal rhythm. Extremities warm and well perfused. Pulses equal. ABDOMEN: Soft, non-distended. Mild right flank and rlq discomfort without discrete ttp. No rebound or guarding. No masses. MUSCULOSKELETAL: Chest examination reveals no tenderness. The back is symmetrical on inspection without obvious abnormality. There is no CVA tenderness to palpation. No joint edema. LOWER EXTREMITIES: Calves are equal size bilaterally and non-tender. No edema. No discoloration. NEURO: Normal sensorium. No sensory or motor deficits noted. SKIN: No rash or jaundice noted. Kael Graf MD Past Med/Surg History Problem List (Updated 03/08/24 @ 21:02 by Kael Graf MD) Acute right flank pain (Acute) Nausea & vomiting (Acute) Acute appendicitis (Acute) Nephrolithiasis Encounter for screening colonoscopy Complex renal cyst Renal cyst Insomnia (Acute) Insomnia Asthma Ureteral calculus, right Hydronephrosis (Acute) Osteoarthritis (Chronic) Hyperparathyroidism Vitamin D deficiency Calcium nephrolithiasis Allergic rhinitis Anxiety (Chronic) Depression (Chronic) History of kidney stones (Chronic) Rosacea (Chronic) Medical History History of diverticulitis one episode several yrs ago Hx of colonic polyps Osteoporosis History of COVID-20 Feb 2022 > not hospitalized > persistent shortness of breath Rx inhalers and monitored by PCP-denies recent change or worsening Morbid obesity Sleep apnea no longer on cpap since gastric bypass Asthma uses daily inhaler now ever since COVID 02/2022. rarely needs the rescue inhaler per pt-last used several months ago Surgical History History of cataract surgery bilat Hx of LASIK Hx of meniscectomy of right knee History of breast biopsy right-benign History of cystoscopy Cystoscopy, right stent placement (01/07/21): [facility] at [facility] History of left breast biopsy benign History of bilateral tubal ligation History of dilatation and curettage History of total hysterectomy with bilateral salpingo-oophorectomy (BSO) History of lithotripsy History of colonoscopy History of umbilical hernia repair x3 History of cholecystectomy History of gastric bypass age 56 History of wisdom tooth extraction Family History Brother Family history of diabetes mellitus Grandmother (Paternal) Family history of diabetes mellitus Sister Family history of diabetes mellitus Family/Other Family history of diabetes mellitus cousins Other No family history of adverse response to anesthesia Social History Smoking Status: Never smoker Second Hand Exposure: No; Do You Dip or Chew Tobacco: No; Hx Alcohol Use: No Hx Substance Use: No Preferred Language: Estonian Communication Ability: Effective Visual Impairment: No Limitations Cottage Parent Required: No Beliefs That Will Affect Care: None Current Living Situation: Spouse current occupational status: retired Other Information That Helps Us Care for You: No Feels Safe at Home: Yes Safety Concerns: Feels Safe At This Time Assistive Devices: Glasses Allergies Allergies Allergy/AdvReac Type Severity Reaction Status Date / Time adhesive Allergy Mild Red rash Verified 03/08/24 13:44 bee venom protein (honey bee) Allergy Mild Severe Verified 03/08/24 13:44 swelling, "heat" at bee sting site house dust Allergy Mild Sinusitis Verified 03/08/24 13:44 No Known Drug Allergies Allergy Unknown . Verified 03/08/24 13:44 Home Meds Home Medications Medication Instructions Recorded Confirmed diclofenac sodium 1 % topical gel 2 g topical TID PRN Pain 10/25/18 03/08/24 (Voltaren Arthritis Pain) guaifenesin 1,200 mg tablet, 1,200 mg PO DAILY PRN Congestion 10/25/18 03/08/24 extended release 12 hr (Mucinex) metronidazole 0.75 % topical cream 1 applic topical BID PRN Other 10/25/18 03/08/24 (MetroCream) cholecalciferol (vitamin D3) 25 2,000 unit PO HS 05/19/20 03/08/24 mcg (1,000 unit) tablet (Vitamin D3) citalopram 40 mg tablet (Celexa) 40 mg PO HS 01/06/21 03/08/24 fluticasone propionate 50 2 spray intranasal HS 01/06/21 03/08/24 mcg/actuation nasal spray,suspension (Flonase Allergy Relief) acetaminophen 650 mg 650 mg PO Q12H PRN Pain 01/23/21 03/08/24 tablet,extended release cyanocobalamin (vitamin B-12) 1,000 mcg IM .COMPLEX 08/05/21 03/08/24 1,000 mcg/mL injection kit fluticasone furoate 50 50 mcg inhalation BID 07/02/22 03/08/24 mcg/actuation blister powder for inhalation (Arnuity Ellipta) magnesium citrate 100 mg tablet 100 mg PO TID 07/02/22 03/08/24 melatonin 5 mg tablet 5 mg PO HS PRN Sleep 07/02/22 03/08/24 calcitriol 0.25 mcg capsule 0.25 mcg PO QAM 03/22/23 03/08/24 gabapentin 300 mg capsule 300 mg PO HS PRN Other 03/22/23 03/08/24 naproxen 500 mg tablet 500 mg PO BID PRN Pain 03/22/23 03/08/24 trazodone 50 mg tablet 50 mg PO HS 03/22/23 03/08/24 Previous Rx's Medication Instructions Recorded albuterol sulfate 90 mcg/actuation 2 puff inhalation Q6H PRN 03/04/22 aerosol inhaler shortness of breath or wheezing #8.5 grams oxycodone 5 mg tablet 5 - 10 mg (1 - 2 x 5 mg) PO 03/08/24 [id number] PRN pain #15 tabs Results & Data (ED) Vital Signs Vital Signs - 24 hr 03/08/24 06:16 03/08/24 06:36 03/08/24 06:37 Temperature 36.3 C L Temperature Source Temporal Artery Scan Pulse Rate 74 71 69 Pulse Rate [Apical] Pulse Rate from SpO2 Sensor 69 Pulse Rhythm [Apical] Respiratory Rate 18 22 Respiratory Effort / Characteristics Non-Labored Spontaneous Respiratory Depth Normal Respiratory Pattern Blood Pressure 216/94 H 200/96 H Blood Pressure [Left Arm] Blood Pressure Mean 134 130 Blood Pressure Mean [Left Arm] Blood Pressure Position [Left Arm] Pulse Oximetry 91 95 Oxygen Delivery Method Room Air Nasal Cannula Oxygen Flow Rate 2 Sepsis Recent Fever Within 48 Hours No Sepsis New/Unexplained Change in Mental Status No Sepsis Action Taken by Nursing No Action Required 03/08/24 06:37 03/08/24 06:37 03/08/24 07:02 Temperature Temperature Source Pulse Rate Pulse Rate [Apical] Pulse Rate from SpO2 Sensor Pulse Rhythm [Apical] Respiratory Rate Respiratory Effort / Characteristics Respiratory Depth Respiratory Pattern Blood Pressure 200/96 H 200/96 H Blood Pressure [Left Arm] Blood Pressure Mean 159 159 Blood Pressure Mean [Left Arm] Blood Pressure Position [Left Arm] Pulse Oximetry Oxygen Delivery Method Room Air Oxygen Flow Rate Sepsis Recent Fever Within 48 Hours Sepsis New/Unexplained Change in Mental Status Sepsis Action Taken by Nursing 03/08/24 07:03 03/08/24 07:06 03/08/24 07:06 Temperature Temperature Source Pulse Rate 71 Pulse Rate [Apical] Pulse Rate from SpO2 Sensor 72 Pulse Rhythm [Apical] Respiratory Rate 18 Respiratory Effort / Characteristics Respiratory Depth Respiratory Pattern Blood Pressure 214/82 H 214/82 H Blood Pressure [Left Arm] Blood Pressure Mean 106 106 Blood Pressure Mean [Left Arm] Blood Pressure Position [Left Arm] Pulse Oximetry 98 Oxygen Delivery Method Oxygen Flow Rate Sepsis Recent Fever Within 48 Hours Sepsis New/Unexplained Change in Mental Status Sepsis Action Taken by Nursing 03/08/24 07:06 03/08/24 07:06 03/08/24 07:06 Temperature Temperature Source Pulse Rate Pulse Rate [Apical] Pulse Rate from SpO2 Sensor Pulse Rhythm [Apical] Respiratory Rate Respiratory Effort / Characteristics Respiratory Depth Respiratory Pattern Blood Pressure 214/82 H 214/82 H 214/82 H Blood Pressure [Left Arm] Blood Pressure Mean 106 106 106 Blood Pressure Mean [Left Arm] Blood Pressure Position [Left Arm] Pulse Oximetry Oxygen Delivery Method Oxygen Flow Rate Sepsis Recent Fever Within 48 Hours Sepsis New/Unexplained Change in Mental Status Sepsis Action Taken by Nursing 03/08/24 07:06 03/08/24 07:15 03/08/24 07:31 Temperature Temperature Source Pulse Rate 78 65 Pulse Rate [Apical] Pulse Rate from SpO2 Sensor 77 65 Pulse Rhythm [Apical] Respiratory Rate 20 22 Respiratory Effort / Characteristics Respiratory Depth Respiratory Pattern Blood Pressure 152/62 H Blood Pressure [Left Arm] Blood Pressure Mean 102 Blood Pressure Mean [Left Arm] Blood Pressure Position [Left Arm] Pulse Oximetry 96 95 Oxygen Delivery Method Oxygen Flow Rate Sepsis Recent Fever Within 48 Hours Sepsis New/Unexplained Change in Mental Status Sepsis Action Taken by Nursing 03/08/24 07:31 03/08/24 07:31 03/08/24 07:33 Temperature Temperature Source Pulse Rate 73 Pulse Rate [Apical] Pulse Rate from SpO2 Sensor 72 Pulse Rhythm [Apical] Respiratory Rate 18 Respiratory Effort / Characteristics Respiratory Depth Respiratory Pattern Blood Pressure 152/62 H 152/62 H Blood Pressure [Left Arm] Blood Pressure Mean 102 102 Blood Pressure Mean [Left Arm] Blood Pressure Position [Left Arm] Pulse Oximetry 96 Oxygen Delivery Method Oxygen Flow Rate Sepsis Recent Fever Within 48 Hours Sepsis New/Unexplained Change in Mental Status Sepsis Action Taken by Nursing 03/08/24 08:00 03/08/24 08:00 03/08/24 08:36 Temperature Temperature Source Pulse Rate 73 67 Pulse Rate [Apical] Pulse Rate from SpO2 Sensor 74 68 Pulse Rhythm [Apical] Respiratory Rate 15 21 Respiratory Effort / Characteristics Respiratory Depth Respiratory Pattern Blood Pressure 173/80 H Blood Pressure [Left Arm] Blood Pressure Mean 106 Blood Pressure Mean [Left Arm] Blood Pressure Position [Left Arm] Pulse Oximetry 96 94 Oxygen Delivery Method Oxygen Flow Rate Sepsis Recent Fever Within 48 Hours Sepsis New/Unexplained Change in Mental Status Sepsis Action Taken by Nursing 03/08/24 08:57 03/08/24 09:10 03/08/24 09:10 Temperature Temperature Source Pulse Rate 73 Pulse Rate [Apical] Pulse Rate from SpO2 Sensor 72 Pulse Rhythm [Apical] Respiratory Rate Respiratory Effort / Characteristics Respiratory Depth Respiratory Pattern Blood Pressure 161/64 H 161/64 H Blood Pressure [Left Arm] Blood Pressure Mean 71 71 Blood Pressure Mean [Left Arm] Blood Pressure Position [Left Arm] Pulse Oximetry 92 Oxygen Delivery Method Oxygen Flow Rate Sepsis Recent Fever Within 48 Hours Sepsis New/Unexplained Change in Mental Status Sepsis Action Taken by Nursing 03/08/24 09:10 03/08/24 09:12 03/08/24 09:30 Temperature Temperature Source Pulse Rate 74 78 Pulse Rate [Apical] Pulse Rate from SpO2 Sensor 75 69 Pulse Rhythm [Apical] Respiratory Rate 18 18 Respiratory Effort / Characteristics Respiratory Depth Respiratory Pattern Blood Pressure 161/64 H Blood Pressure [Left Arm] Blood Pressure Mean 71 Blood Pressure Mean [Left Arm] Blood Pressure Position [Left Arm] Pulse Oximetry 97 95 Oxygen Delivery Method Oxygen Flow Rate Sepsis Recent Fever Within 48 Hours Sepsis New/Unexplained Change in Mental Status Sepsis Action Taken by Nursing 03/08/24 09:31 03/08/24 09:33 03/08/24 09:57 Temperature Temperature Source Pulse Rate 68 67 Pulse Rate [Apical] Pulse Rate from SpO2 Sensor 68 67 Pulse Rhythm [Apical] Respiratory Rate 19 18 Respiratory Effort / Characteristics Respiratory Depth Respiratory Pattern Blood Pressure 150/93 H Blood Pressure [Left Arm] Blood Pressure Mean 98 Blood Pressure Mean [Left Arm] Blood Pressure Position [Left Arm] Pulse Oximetry 96 95 Oxygen Delivery Method Oxygen Flow Rate Sepsis Recent Fever Within 48 Hours Sepsis New/Unexplained Change in Mental Status Sepsis Action Taken by Nursing 03/08/24 10:00 03/08/24 10:00 03/08/24 10:03 Temperature Temperature Source Pulse Rate 67 Pulse Rate [Apical] Pulse Rate from SpO2 Sensor 67 Pulse Rhythm [Apical] Respiratory Rate 22 Respiratory Effort / Characteristics Respiratory Depth Respiratory Pattern Blood Pressure 149/82 H 149/82 H Blood Pressure [Left Arm] Blood Pressure Mean 124 124 Blood Pressure Mean [Left Arm] Blood Pressure Position [Left Arm] Pulse Oximetry 95 Oxygen Delivery Method Oxygen Flow Rate Sepsis Recent Fever Within 48 Hours Sepsis New/Unexplained Change in Mental Status Sepsis Action Taken by Nursing 03/08/24 10:30 03/08/24 11:12 03/08/24 11:30 Temperature Temperature Source Pulse Rate 68 67 71 Pulse Rate [Apical] Pulse Rate from SpO2 Sensor 71 67 67 Pulse Rhythm [Apical] Respiratory Rate 22 19 25 H Respiratory Effort / Characteristics Respiratory Depth Respiratory Pattern Blood Pressure Blood Pressure [Left Arm] Blood Pressure Mean Blood Pressure Mean [Left Arm] Blood Pressure Position [Left Arm] Pulse Oximetry 100 99 99 Oxygen Delivery Method Oxygen Flow Rate Sepsis Recent Fever Within 48 Hours Sepsis New/Unexplained Change in Mental Status Sepsis Action Taken by Nursing 03/08/24 11:32 03/08/24 11:32 03/08/24 11:32 Temperature Temperature Source Pulse Rate Pulse Rate [Apical] Pulse Rate from SpO2 Sensor Pulse Rhythm [Apical] Respiratory Rate Respiratory Effort / Characteristics Respiratory Depth Respiratory Pattern Blood Pressure 208/109 H 208/109 H 208/109 H Blood Pressure [Left Arm] Blood Pressure Mean 169 169 169 Blood Pressure Mean [Left Arm] Blood Pressure Position [Left Arm] Pulse Oximetry Oxygen Delivery Method Oxygen Flow Rate Sepsis Recent Fever Within 48 Hours Sepsis New/Unexplained Change in Mental Status Sepsis Action Taken by Nursing 03/08/24 11:36 03/08/24 11:57 03/08/24 12:00 Temperature Temperature Source Pulse Rate 67 67 Pulse Rate [Apical] Pulse Rate from SpO2 Sensor 68 67 Pulse Rhythm [Apical] Respiratory Rate 18 18 Respiratory Effort / Characteristics Respiratory Depth Respiratory Pattern Blood Pressure 210/115 H Blood Pressure [Left Arm] Blood Pressure Mean 139 Blood Pressure Mean [Left Arm] Blood Pressure Position [Left Arm] Pulse Oximetry 98 99 Oxygen Delivery Method Oxygen Flow Rate Sepsis Recent Fever Within 48 Hours Sepsis New/Unexplained Change in Mental Status Sepsis Action Taken by Nursing 03/08/24 12:00 03/08/24 12:12 03/08/24 12:30 Temperature Temperature Source Pulse Rate 70 69 Pulse Rate [Apical] Pulse Rate from SpO2 Sensor 69 70 Pulse Rhythm [Apical] Respiratory Rate 19 Respiratory Effort / Characteristics Respiratory Depth Respiratory Pattern Blood Pressure 210/115 H Blood Pressure [Left Arm] Blood Pressure Mean 139 Blood Pressure Mean [Left Arm] Blood Pressure Position [Left Arm] Pulse Oximetry 98 97 Oxygen Delivery Method Oxygen Flow Rate Sepsis Recent Fever Within 48 Hours Sepsis New/Unexplained Change in Mental Status Sepsis Action Taken by Nursing 03/08/24 12:54 03/08/24 13:00 03/08/24 13:00 Temperature Temperature Source Pulse Rate 71 Pulse Rate [Apical] Pulse Rate from SpO2 Sensor 71 Pulse Rhythm [Apical] Respiratory Rate 23 Respiratory Effort / Characteristics Respiratory Depth Respiratory Pattern Blood Pressure 205/95 H 205/95 H Blood Pressure [Left Arm] Blood Pressure Mean 159 159 Blood Pressure Mean [Left Arm] Blood Pressure Position [Left Arm] Pulse Oximetry 96 Oxygen Delivery Method Oxygen Flow Rate Sepsis Recent Fever Within 48 Hours Sepsis New/Unexplained Change in Mental Status Sepsis Action Taken by Nursing 03/08/24 13:00 03/08/24 13:01 03/08/24 13:06 Temperature Temperature Source Pulse Rate 71 Pulse Rate [Apical] Pulse Rate from SpO2 Sensor 71 Pulse Rhythm [Apical] Respiratory Rate 20 Respiratory Effort / Characteristics Non-Labored Spontaneous Respiratory Depth Normal Respiratory Pattern Blood Pressure 205/95 H Blood Pressure [Left Arm] Blood Pressure Mean 159 Blood Pressure Mean [Left Arm] Blood Pressure Position [Left Arm] Pulse Oximetry 99 Oxygen Delivery Method Oxygen Flow Rate Sepsis Recent Fever Within 48 Hours Sepsis New/Unexplained Change in Mental Status Sepsis Action Taken by Nursing 03/08/24 13:30 03/08/24 13:48 03/08/24 14:18 Temperature 37.2 C 37.2 C Temperature Source Oral Oral Pulse Rate 78 Pulse Rate [Apical] 76 76 Pulse Rate from SpO2 Sensor Pulse Rhythm [Apical] Regular Regular Respiratory Rate 22 20 20 Respiratory Effort / Characteristics Non-Labored Spontaneous Normal for Patient Non-Labored Spontaneous Normal for Patient Respiratory Depth Normal Normal Respiratory Pattern Regular Regular Blood Pressure Blood Pressure [Left Arm] 188/80 H 188/80 H Blood Pressure Mean Blood Pressure Mean [Left Arm] 116 116 Blood Pressure Position [Left Arm] Semi-fowlers Semi-fowlers Pulse Oximetry 98 98 Oxygen Delivery Method Nasal Cannula Nasal Cannula Oxygen Flow Rate 2 2 Sepsis Recent Fever Within 48 Hours Sepsis New/Unexplained Change in Mental Status Sepsis Action Taken by Nursing 03/08/24 14:18 Temperature Temperature Source Pulse Rate Pulse Rate [Apical] Pulse Rate from SpO2 Sensor Pulse Rhythm [Apical] Respiratory Rate Respiratory Effort / Characteristics Respiratory Depth Respiratory Pattern Blood Pressure Blood Pressure [Left Arm] Blood Pressure Mean Blood Pressure Mean [Left Arm] Blood Pressure Position [Left Arm] Pulse Oximetry Oxygen Delivery Method Nasal Cannula Oxygen Flow Rate 2 Sepsis Recent Fever Within 48 Hours Sepsis New/Unexplained Change in Mental Status Sepsis Action Taken by Nursing Laboratory Data Attestation: I reviewed the patient's lab results. 03/08/24 06:30 03/08/24 06:30 Lab Results 03/08/24 03/08/24 Range/Units 06:30 09:10 WBC 15.59 H (4.8-10.8) K/ul RBC 4.31 (4.20-5.40) M/uL Hgb 12.0 (12.0-16.0) g/dl Hct 40.5 (37.0-47.0) % MCV 94.0 (80.0-100.0) fL MCH 27.8 (25.0-34.0) pg MCHC 29.6 L (32.0-36.0) g/dL RDW Std Deviation 48.3 H (36.4-46.3) fL RDW Coeff of Radha 13.9 (11.5-14.5) % Plt Count 289 (130-400) K/uL MPV 10.8 (9.4-12.4) fL Immature Gran % (Auto) 0.4 % Neut % (Auto) 79.6 % Lymph % (Auto) 12.8 % Pettis % (Auto) 6.2 % Eos % (Auto) 0.6 % Baso % (Auto) 0.4 % Neut # (Auto) 12.41 H (1.40-6.50) K/uL Lymph # (Auto) 1.99 (1.20-3.40) K/uL Pettis # (Auto) 0.96 H (0.11-0.59) K/uL Eos # (Auto) 0.10 (0.00-0.50) K/uL Baso # (Auto) 0.06 (0.00-0.20) K/uL Immature Gran # (Auto) 0.07 (0.01-0.20) K/uL Sodium 140 (136-145) mmol/L Potassium 4.0 (3.5-5.1) mmol/L Chloride 99 (98-107) mmol/L Carbon Dioxide 34 H (21-32) mmol/L Anion Gap 7 (3-11) BUN 16 (6-23) mg/dl Creatinine 0.71 (0.6-1.2) mg/dl Est Cr Clr Drug Dosing 94.6 ml/min eGFR 89.17 BUN/Creatinine Ratio 22.5 H (10-20) Glucose 144 H (70-99(Fasting)) mg/dl Calcium 9.4 (8.6-10.3) mg/dl Total Bilirubin 0.4 (0.2-1.0) mg/dl AST 15 (13-39) U/L ALT 5 L (7-52) U/L Alkaline Phosphatase 80 (34-104) U/L Total Protein 7.2 (6.0-8.3) gm/dl Albumin 3.9 (3.4-5.0) gm/dl Globulin 3.3 (2.5-4.0) gm/dl Albumin/Globulin Ratio 1.2 (0.9-2) Lipase 16 (11-82) U/L Urine Color Yellow Urine Appearance Clear (Clear) Urine pH 8.0 H (4.5-7.5) Ur Specific [place] 1.036 H (1.000-1.030) Urine Protein Negative (Negative) Urine Glucose (UA) Negative (Negative) Urine Ketones Negative (Negative) Urine Blood Trace H (Negative) Urine Nitrite Negative (Negative) Urine Bilirubin Negative (Negative) Urine Urobilinogen Negative (Negative) Ur Leukocyte Esterase 1+ H (Negative) Urine WBC (Auto) 21-50 H (0-5) /hpf Urine RBC (Auto) 3-5 H (0-2) /hpf U Hyaline Cast (Auto) 0-2 (0-2) /lpf U Epithel Cells (Auto) 0-2 (0-2) /hpf Urine Bacteria (Auto) 4+ H (None Seen) Administered Medications Morphine Sulfate (Morphine Sulfate 2 Mg/Ml Carp) 2 mg IV Q3H PRN PRN Reason: Mild-Mod Pain (Scale 1-6) Stop: 03/22/24 12:21 Last Admin: 03/08/24 13:03 Dose: 2 mg Documented By: BCN Discontinued Medications Bupivacaine HCl/Epinephrine Bitart (Bupivacaine/Epinephrine 0.5% Mpf 1:200,000 30 Ml Vial) Confirm Administered Dose 30 ml .ROUTE .[facility] Stop: 03/08/24 14:40 Last Admin: 03/08/24 15:26 Dose: 30 ml Documented By: JEFFRY Sodium Chloride (Nss) 500 mls @ 999 mls/hr IV .Q31M ONE Stop: 03/08/24 07:01 Last Infusion: 03/08/24 07:12 Dose: Infused Documented By: Admin: 03/08/24 06:38 Dose: 999 mls/hr Documented By: ALVERTO Acetaminophen (Ofirmev) 1,000 mg in 100 mls @ 400 mls/hr IV NOW STA Stop: 03/08/24 06:45 Last Infusion: 03/08/24 07:02 Dose: Infused Documented By: Admin: 03/08/24 06:38 Dose: 400 mls/hr Documented By: ALVERTO Ceftriaxone Sodium (Rocephin) 2,000 mg in 50 mls @ 100 mls/hr IV NOW STA Stop: 03/08/24 11:33 Last Infusion: 03/08/24 11:44 Dose: Infused Documented By: Admin: 03/08/24 11:11 Dose: 100 mls/hr Documented By: RICH Sodium Chloride (Nss) 1,000 mls @ 15 mls/hr IV .Q24H MARÍA Stop: 03/09/24 13:59 Last Infusion: 03/08/24 14:41 Dose: Infused Documented By: Infusion: 03/08/24 13:55 Dose: 0 mls/hr Documented By: Admin: 03/08/24 13:55 Dose: 15 mls/hr Documented By: JATINDER Ioversol (Optiray 320 100ml) 94 ml IV ONCE ONE Stop: 03/08/24 07:24 Last Admin: 03/08/24 07:23 Dose: 94 ml Documented By: TIFFANIE Ketorolac Tromethamine (Ketorolac Tromethamine 15 Mg/Ml Vial) 15 mg IV NOW STA Stop: 03/08/24 06:32 Last Admin: 03/08/24 06:39 Dose: 15 mg Documented By: ALVERTO Morphine Sulfate (Morphine Sulfate 2 Mg/Ml Carp) 2 mg IV NOW STA Stop: 03/08/24 06:55 Last Admin: 03/08/24 07:05 Dose: 2 mg Documented By: MELVIN Ondansetron HCl (Ondansetron Inj 2 Mg/Ml 2 Ml Vial) 4 mg IV NOW STA Stop: 03/08/24 06:32 Last Admin: 03/08/24 06:38 Dose: 4 mg Documented By: ALVERTO Imaging Data Radiologist's Impression: Abdomen/Pelvis CT 03/08/24 06:[address] WITH IV CONTRAST CT DOSE: 1479.25 mGy.cm HISTORY: Acute right flank pain right flank pain TECHNIQUE: Multiaxial CT images of the abdomen and pelvis were performed following the IV administration of 94 cc of Optiray, A dose lowering technique was utilized adhering to the principles of ALARA. COMPARISON STUDY: Renal ultrasound of same day, CT abdomen 03/08/2023 FINDINGS: Cardiomegaly with coronary artery calcifications. Mild bibasilar atelectasis versus scarring. No pneumatosis or pneumoperitoneum. Unchanged indeterminate 1.4 cm splenic lesion. Unremarkable pancreas and adrenal glands. Stable hepatic cysts. Patency of the hepatic and portal veins. Cholecystectomy. Bilateral complex and simple renal cysts redemonstrated. Complex cystic lesion within the posterior interpolar left kidney on image 135 measuring 11 mm is similar to prior report measured 10 mm and contains subcentimeter calcifications. Nonobstructing 3 mm calculus of the inferior pole left kidney. Calculus interpolar right kidney measure up to 4 mm. No ureteral calculi or hydronephrosis. Unremarkable urinary bladder. Hysterectomy. No abdominal aortic aneurysm. Small hiatal hernia. Jeevan-en-Y gastric bypass. No bowel obstruction. The appendix is dilated and fluid-filled measuring up to 1.5 cm. Moderate adjacent inflammatory stranding without abscess. Ventral abdominal wall herniorrhaphy. No acute fracture. IMPRESSION: 1. Acute uncomplicated appendicitis. 2. No bowel obstruction, pneumoperitoneum or abscess. 3. Nonobstructing bilateral nephrolithiasis. 4. 11 mm complex cystic lesion of left kidney is similar to prior, previously described as suspicious for renal cell carcinoma. ACT 112: Negative or not required by law. The above report was generated using voice recognition software. It may contain grammatical, syntax or spelling errors. Electronically signed by: Grzegorz Servin M.D. 03/08/2024 10:54 AM Chest X-Ray 03/08/24 06:55 EXAM: XR chest 1V portable CLINICAL HISTORY: VOMITING TGB TECHNIQUE: X-ray image of the chest is obtained in AP projection. COMPARISON: Prior study dated 03/29/2023. FINDINGS: Pulmonary Parenchyma: Right hilar fairly defined radioopacity measuring 27 x 27mm compared to 20 x 25mm in a prior study advised clinical correlation and CT assessment if clinically warranted. Bilateral prominent hyun seen. No evidence of pleural effusion or pleural thickening. Heart and Mediastinum: Apparent cardiomegaly. No mediastinal widening or masses. No hilar or mediastinal lymphadenopathy. Bony Thorax: Thoracic spondylosis in the form of sclerosed end plates and osteophytosis. Soft Tissues: Soft tissues overlying the chest wall are unremarkable. IMPRESSION: 1. Right hilar fairly defined radioopacity measuring 27 x 27mm compared to 20 x 25mm in a prior study advised clinical correlation and CT assessment if clinically warranted. 2. Bilateral prominent hyun seen. 3. Apparent cardiomegaly. DISCLAIMER:A subtle bone abnormality or fracture may not be readily apparent on x-rays, thus clinical correlation and further imaging including follow up CT, MRI, or follow up x-rays are advised as needed. Electronically signed by Angelique Nieto 03-08-2024 08:11 AM Discharge Plan Visit Data Chief Complaint: Kidney Stone Stated Complaint: KIDNEY STONE ED Provider: Kael Graf Discharge Problem: Acute appendicitis, Nausea & vomiting, Acute right flank pain Patient Disposition: Admitted As Inpatient Condition: Good Discharge Instructions Interventions: ED Discharge Assessment Last Done: 03/08/24 13:31 Discharge Problem: Acute appendicitis Qualifiers: Acute appendicitis type: unspecified acute appendicitis type Qualified Code(s): K35.80 - Unspecified acute appendicitis Nausea & vomiting Qualifiers: Vomiting type: unspecified Qualified Code(s): R11.2 - Nausea with vomiting, unspecified
[2024-03-08 07:02] LABS: Albumin Globulin Ratio 1.2 (0.9-2); Albumin Level 3.9 gm/dl (3.4-5.0); BUN Creatinine Ratio 22.5 (10-20); Bilirubin,Total 0.4 mg/dl (0.2-1.0); Calcium 9.4 mg/dl (8.6-10.3); Creatinine Clr Calc Pharmacy 94.6 ml/min; Globulin 3.3 gm/dl (2.5-4.0); Total Protein 7.2 gm/dl (6.0-8.3)
[2024-03-08] MEDS: MoRPHine SULFATE 2 MG/ML CARP IV STA (07:05)
[2024-03-08] MEDS: OPTIRAY 320 100ml IV ONE (07:23)
--- NOTE | 2024-03-08 08:11 | XRay Report ---
EXAM: XR chest 1V portable CLINICAL HISTORY: VOMITING TGB TECHNIQUE: X-ray image of the chest is obtained in AP projection. COMPARISON: Prior study dated 03/29/2023. FINDINGS: Pulmonary Parenchyma: Right hilar fairly defined radioopacity measuring 27 x 27mm compared to 20 x 25mm in a prior study advised clinical correlation and CT assessment if clinically warranted. Bilateral prominent hyun seen. No evidence of pleural effusion or pleural thickening. Heart and Mediastinum: Apparent cardiomegaly. No mediastinal widening or masses. No hilar or mediastinal lymphadenopathy. Bony Thorax: Thoracic spondylosis in the form of sclerosed end plates and osteophytosis. Soft Tissues: Soft tissues overlying the chest wall are unremarkable. IMPRESSION: 1. Right hilar fairly defined radioopacity measuring 27 x 27mm compared to 20 x 25mm in a prior study advised clinical correlation and CT assessment if clinically warranted. 2. Bilateral prominent hyun seen. 3. Apparent cardiomegaly. DISCLAIMER:A subtle bone abnormality or fracture may not be readily apparent on x-rays, thus clinical correlation and further imaging including follow up CT, MRI, or follow up x-rays are advised as needed. Electronically signed by Angelique Nieto 03-08-2024 08:11 AM
[2024-03-08 09:51] LABS: Appearance Urine Clear (Clear); Bacteria Urine Automated 4+ (None Seen); Bilirubin Urine Negative (Negative); Blood Urine Trace (Negative); Cast Urine Automated 0-2 /lpf (0-2); Color Urine Yellow; Epithelial Cell Urine Auto 0-2 /hpf (0-2); Glucose Urine UA Negative (Negative); Ketones Urine Negative (Negative); Leukocyte Esterase Urine 1+ (Negative); Nitrite Urine Negative (Negative); Protein Urine Negative (Negative); Specific Gravity Urine 1.036 (1.000-1.030); Urobilinogen Urine Negative (Negative); WBC Urine Automated 21-50 /hpf (0-5)
--- NOTE | 2024-03-08 10:57 | CT Scan Report ---
ABDOMEN AND PELVIS CT WITH IV CONTRAST CT DOSE: 1479.25 mGy.cm HISTORY: Acute right flank pain right flank pain TECHNIQUE: Multiaxial CT images of the abdomen and pelvis were performed following the IV administrat ion of 94 cc of Optiray, A dose lowering technique was utilized adhering to the principles of ALARA. COMPARISON STUDY: Renal ultrasound of same day, CT abdomen 03/08/2023 FINDINGS: Cardiomegaly with coronary artery calcifications. Mild bibasilar atelectasis versus scarrin g. No pneumatosis or pneumoperitoneum. Unchanged indeterminate 1.4 cm splenic lesion. Unremarkable pa ncreas and adrenal glands. Stable hepatic cysts. Patency of the hepatic and portal veins. Cholecystec cherry. Bilateral complex and simple renal cysts redemonstrated. Complex cystic lesion within the posterior i nterpolar left kidney on image 135 measuring 11 mm is similar to prior report measured 10 mm and cont ains subcentimeter calcifications. Nonobstructing 3 mm calculus of the inferior pole left kidney. Polo culus interpolar right kidney measure up to 4 mm. No ureteral calculi or hydronephrosis. Unremarkable urinary bladder. Hysterectomy. No abdominal aortic aneurysm. Small hiatal hernia. Jeevan-en-Y gastric bypass. No bowel obstruction. The appendix is dilated and fluid-filled measuring up to 1.5 cm. Modera te adjacent inflammatory stranding without abscess. Ventral abdominal wall herniorrhaphy. No acute fr acture. IMPRESSION: 1. Acute uncomplicated appendicitis. 2. No bowel obstruction, pneumoperitoneum or abscess. 3. Nonobstructing bilateral nephrolithiasis. 4. 11 mm complex cystic lesion of left kidney is similar to prior, previously described as suspicious for renal cell carcinoma. ACT 112: Negative or not required by law. The above report was generated using voice recognition software. It may contain grammatical, syntax o r spelling errors. Electronically signed by: Grzegorz Servin M.D. 03/08/2024 10:54 AM
[2024-03-08] MEDS: cefTRIAXone SODIUM 2,000 MG/50 ML BAG IV STA (11:11)
--- NOTE | 2024-03-08 12:09 | History & Physical Report ---
Date of Service March 08, 2024 Assessment & Plan (1) Acute appendicitis: Plan: Patient with complaint of abdominal pain, nausea , vomiting that started early today at 0230. Pain is located on the right upper and right lower quadrant and sharp in nature. CT scan showing concern for acute appendicitis. WBC elevated at 15, afebrile, hypertensive, pt denies hx of HTN , could be secondary to pain and situation. On exam she is in no acute distress but does appear uncomfortable. Has an obese abdomen with noted scarring from prior surgeries, is TTP RUQ, RLQ. Reviewed CT scan with patient and and recommending surgical intervention in the form of a Laparoscopic Appendectomy with avionics installer surgeon Dr. Purdy. Risks include but not limited to infection, bleeding, injury to other organs, need for further surgery the patient would like to proceed with surgical intervention. Keep NPO IV Fluids for hydration IV antiemetic PRN IV antibiotics was given Ceftriaxone in ER IV analgesic PRN She will schedule as an add on and timing of surgery will be pending OR availability. Possible d/c after procedure vs overnight observation. as above. discussed risks/options. questions answered. will proceed today with lap appy. History of Present Illness Chief Complaint: Patient is a pleasant 73 yo female with PMH asthma, renal cyst, nephrolithiasis, anxiety, depression, diverticulosis, obesity that presented to the [facility] ER with complaint of abdominal pain, nausea , vomiting that started early today at 0230. Pain is located on the right upper and right lower quadrant and sharp in nature. She denies fever, chills, CP, and SOB. Prior abdominal surgeries include umbilical hernia repair, cholecystectomy, total hysterectomy, gastric bypass. Denies blood thinners, last PO intake was last night. A CT scan was obtained and showing concerns for acute appendicitis. Primary Care Provider: Steve Machado MD Allergies Allergy/AdvReac Type Severity Reaction Status Date / Time adhesive Allergy Mild Red rash Verified 06/14/23 09:37 bee venom protein (honey bee) Allergy Mild Severe Verified 06/14/23 09:37 swelling, "heat" at bee sting site house dust Allergy Mild Sinusitis Verified 06/14/23 09:37 No Known Drug Allergies Allergy Unknown . Verified 06/14/23 09:37 Home Medications Medication Instructions Recorded Confirmed Type diclofenac sodium 1 % topical gel 2 g topical TID PRN Pain 10/25/18 03/08/24 History (Voltaren Arthritis Pain) guaifenesin 1,200 mg tablet, 1,200 mg PO DAILY PRN Congestion 10/25/18 03/08/24 History extended release 12 hr (Mucinex) metronidazole 0.75 % topical cream 1 applic topical BID PRN Other 10/25/18 03/08/24 History (MetroCream) cholecalciferol (vitamin D3) 25 2,000 unit PO HS 05/19/20 03/08/24 History mcg (1,000 unit) tablet (Vitamin D3) citalopram 40 mg tablet (Celexa) 40 mg PO HS 01/06/21 03/08/24 History fluticasone propionate 50 2 spray intranasal HS 01/06/21 03/08/24 History mcg/actuation nasal spray,suspension (Flonase Allergy Relief) acetaminophen 650 mg 650 mg PO Q12H PRN Pain 01/23/21 03/08/24 History tablet,extended release cyanocobalamin (vitamin B-12) 1,000 mcg IM .COMPLEX 08/05/21 03/08/24 History 1,000 mcg/mL injection kit albuterol sulfate 90 mcg/actuation 2 puff inhalation Q6H PRN 03/04/22 03/08/24 Rx aerosol inhaler shortness of breath or wheezing #8.5 grams fluticasone furoate 50 50 mcg inhalation BID 07/02/22 03/08/24 History mcg/actuation blister powder for inhalation (Arnuity Ellipta) magnesium citrate 100 mg tablet 100 mg PO TID 07/02/22 03/08/24 History melatonin 5 mg tablet 5 mg PO HS PRN Sleep 07/02/22 03/08/24 History calcitriol 0.25 mcg capsule 0.25 mcg PO QAM 03/22/23 03/08/24 History gabapentin 300 mg capsule 300 mg PO HS PRN Other 03/22/23 03/08/24 History naproxen 500 mg tablet 500 mg PO BID PRN Pain 03/22/23 03/08/24 History trazodone 50 mg tablet 50 mg PO HS 03/22/23 03/08/24 History oxycodone 5 mg tablet 5 - 10 mg (1 - 2 x 5 mg) PO 03/08/24 Rx .[id number] PRN pain #15 tabs Past Med/Surg History Problem List (Updated 03/08/24 @ 11:56 by IRINA Peña) Acute appendicitis Nephrolithiasis Encounter for screening colonoscopy Complex renal cyst Renal cyst Insomnia (Acute) Insomnia Asthma Ureteral calculus, right Hydronephrosis (Acute) Osteoarthritis (Chronic) Hyperparathyroidism Vitamin D deficiency Calcium nephrolithiasis Allergic rhinitis Anxiety (Chronic) Depression (Chronic) History of kidney stones (Chronic) Rosacea (Chronic) Medical History History of diverticulitis one episode several yrs ago Hx of colonic polyps Osteoporosis History of COVID-20 Feb 2022 > not hospitalized > persistent shortness of breath Rx inhalers and monitored by PCP-denies recent change or worsening Morbid obesity Sleep apnea no longer on cpap since gastric bypass Asthma uses daily inhaler now ever since COVID 02/2022. rarely needs the rescue inhaler per pt-last used several months ago Surgical History History of cataract surgery bilat Hx of LASIK Hx of meniscectomy of right knee History of breast biopsy right-benign History of cystoscopy Cystoscopy, right stent placement (01/07/21): MAC at [facility] History of left breast biopsy benign History of bilateral tubal ligation History of dilatation and curettage History of total hysterectomy with bilateral salpingo-oophorectomy (BSO) History of lithotripsy History of colonoscopy History of umbilical hernia repair x3 History of cholecystectomy History of gastric bypass age 56 History of wisdom tooth extraction Family History Brother Family history of diabetes mellitus Grandmother (Paternal) Family history of diabetes mellitus Sister Family history of diabetes mellitus Family/Other Family history of diabetes mellitus cousins Other No family history of adverse response to anesthesia Social History Smoking Status: Never smoker Second Hand Exposure: No; Do You Dip or Chew Tobacco: No; Hx Alcohol Use: Yes Alcohol type: wine Hx Substance Use: No Preferred Language: Frisian Communication Ability: Effective Visual Impairment: No Limitations Distance Education Coordinator Required: No Beliefs That Will Affect Care: None Current Living Situation: Spouse current occupational status: retired Feels Safe at Home: Yes Assistive Devices: Glasses Review of Systems Constitutional: no fever and no chills Respiratory: no dyspnea Cardiovascular: no chest pain Gastrointestinal: + abdominal pain, + nausea and + vomitin g Genitourinary: no dysuria Musculoskeletal: no muscle weakness Psychiatric: no confusion Physical Exam Constitutional: + morbidly obese and cooperative; no acu te distress and + uncomfortable Respiratory: normal respiratory effort and able to speak in complete sentences; no respiratory distress Cardiovascular: Rate/Rhythm: regular rate Gastrointestinal (Abdomen): Inspection/Auscultation: + abdominal surgical scar Percussion/Palpation: + abdomen tender, + guarding and abdomen soft Musculoskeletal: no cyanosis or clubbing, extremities motor strength 5/5 Psychiatric: Orientation: alert and oriented x 3 Results & Data Results & Data Vital Signs (Past 12 Hours) Vital Signs Temp Pulse Resp BP Pulse Ox O2 Del Method O2 Flow Rate 03/08/24 11:12 67 19 99 03/08/24 10:30 68 22 100 03/08/24 10:03 67 22 95 03/08/24 10:00 149/82 H 03/08/24 10:00 149/82 H 03/08/24 09:57 67 18 95 03/08/24 09:33 68 19 96 03/08/24 09:31 150/93 H 03/08/24 09:30 78 18 95 03/08/24 09:12 74 18 97 03/08/24 09:10 161/64 H 03/08/24 09:10 161/64 H 03/08/24 09:10 161/64 H 03/08/24 08:57 73 92 03/08/24 08:36 67 21 94 03/08/24 08:00 173/80 H 03/08/24 08:00 73 15 96 03/08/24 07:33 73 18 96 03/08/24 07:31 152/62 H 03/08/24 07:31 152/62 H 03/08/24 07:31 152/62 H 03/08/24 07:15 65 22 95 03/08/24 07:06 78 20 96 03/08/24 07:06 214/82 H 03/08/24 07:06 214/82 H 03/08/24 07:06 214/82 H 03/08/24 07:06 214/82 H 03/08/24 07:06 214/82 H 03/08/24 07:03 71 18 98 03/08/24 07:02 Room Air 03/08/24 06:37 200/96 H 03/08/24 06:37 200/96 H 03/08/24 06:37 69 03/08/24 06:36 71 22 200/96 H 95 Nasal Cannula 2 03/08/24 06:16 97.3 F L 74 18 216/94 H 91 Room Air Diagnostic Findings [place], [place] [phone] CT Scan Report Patient: EMILY WAKLER Admit Date: 03/08/24 MR#: [id number] Address[address]: [address] [facility] Acct ID:[id number] Address2: Date: 1950 [facility] Zip: [place] [address] Age: 73 Location: ED Sex: F Room/Bed: Att Phy: Diagnosis: KIDNEY STONE Shilpi Phy: Steve Machado MD Service Date: 03/08/24 Fam Phy: Interpreting Phy: Grzegorz ServinAdmit Phy: Ordering Phy: Kael Graf M.D. cc: ~ ABDOMEN AND PELVIS CT WITH IV CONTRAST CT DOSE: 1479.25 mGy.cm HISTORY: Acute right flank pain right flank pain TECHNIQUE: Multiaxial CT images of the abdomen and pelvis were performed following the IV administration of 94 cc of Optiray, A dose lowering technique was utilized adhering to the principles of ALARA. COMPARISON STUDY: Renal ultrasound of same day, CT abdomen 03/08/2023 FINDINGS: Cardiomegaly with coronary artery calcifications. Mild bibasilar atelectasis versus scarring. No pneumatosis or pneumoperitoneum. Unchanged indeterminate 1.4 cm splenic lesion. Unremarkable pancreas and adrenal glands. Stable hepatic cysts. Patency of the hepatic and portal veins. Cholecystectomy. Bilateral complex and simple renal cysts redemonstrated. Complex cystic lesion within the posterior interpolar left kidney on image 135 measuring 11 mm is similar to prior report measured 10 mm and contains subcentimeter calcifications. Nonobstructing 3 mm calculus of the inferior pole left kidney. Calculus interpolar right kidney measure up to 4 mm. No ureteral calculi or hydronephrosis. Unremarkable urinary bladder. Hysterectomy. No abdominal aortic aneurysm. Small hiatal hernia. Jeevan-en-Y gastric bypass. No bowel obstruction. The appendix is dilated and fluid-filled measuring up to 1.5 cm. Moderate adjacent inflammatory stranding without abscess. Ventral abdominal wall herniorrhaphy. No acute fracture. IMPRESSION: 1. Acute uncomplicated appendicitis. 2. No bowel obstruction, pneumoperitoneum or abscess. 3. Nonobstructing bilateral nephrolithiasis. 4. 11 mm complex cystic lesion of left kidney is similar to prior, previously described as suspicious for renal cell carcinoma. ACT 112: Negative or not required by law. The above report was generated using voice recognition software. It may contain grammatical, syntax or spelling errors. Electronically signed by: Grzegorz Servin M.D. 03/08/2024 10:54 AM Dictated: 03/08/24 1049 Transcribed: 03/08/24 1049 CBC w Diff Results Results CBC w Diff Results: RBC 4.31 M/uL (4.20-5.40) 03/08/24 WBC 15.59 K/ul (4.8-10.8) H 03/08/24 Hgb 12.0 g/dl (12.0-16.0) 03/08/24 Hct 40.5 % (37.0-47.0) 03/08/24 MCV 94.0 fL (80.0-100.0) 03/08/24 MCH 27.8 pg (25.0-34.0) 03/08/24 MCHC 29.6 g/dL (32.0-36.0) L 03/08/24 RDW Standard Deviation 48.3 fL (36.4-46.3) H 03/08/24 RDW Coefficient of Variation 13.9 % (11.5-14.5) 03/08/24 Plt Count 289 K/uL (130-400) 03/08/24 MPV 10.8 fL (9.4-12.4) 03/08/24 Neutrophils (%) (Auto) 79.6 % 03/08/24 Lymphocytes (%) (Auto) 12.8 % 03/08/24 Monocytes # (Auto) 0.96 K/uL (0.11-0.59) H 03/08/24 Eosinophils # (Auto) 0.10 K/uL (0.00-0.50) 03/08/24 Immature Granulocyte % (Auto) 0.4 % 03/08/24 Neutrophils # (Auto) 12.41 K/uL (1.40-6.50) H 03/08/24 Lymphocytes # (Auto) 1.99 K/uL (1.20-3.40) 03/08/24 Monocytes # (Auto) 0.96 K/uL (0.11-0.59) H 03/08/24 Eosinophils # (Auto) 0.10 K/uL (0.00-0.50) 03/08/24 Basophils # (Auto) 0.06 K/uL (0.00-0.20) 03/08/24 Immature Granulocyte # (Auto) 0.07 K/uL (0.01-0.20) 4 PG Care Time/CCT Total # of Minutes Spent Total Time Spent with Patient: Total time spent is greater than 50% in coordination of care (as documented) at patient's floor/unit and/or counseling patient: Coding Level of Care Code 57819 INT INP/OBS CARE 40MIN Diagnoses Acute appendicitis K35.80
[2024-03-08] MEDS ORDERED: ACETAMINOPHEN 1,000 MG/100 ML VIAL IV PRN (12:22)
[2024-03-08] MEDS ORDERED: MoRPHine SULFATE 4 MG/ML 1 ML CARP\\VIAL IV PRN (12:22)
[2024-03-08] MEDS ORDERED: ONDANSETRON INJ 2 MG/ML 2 ML VIAL IV PRN ×2 (12:22→14:32)
[2024-03-08] MEDS: MoRPHine SULFATE 2 MG/ML CARP IV PRN (13:03)
[2024-03-08] MEDS ORDERED: MIDAZOLAM HCL 1 MG/ML 2ML VIAL ONE (13:34)
[2024-03-08] MEDS ORDERED: fentaNYL citrate PF 100 MCG/2 ML VIAL ONE ×2 (13:34→15:31)
[2024-03-08] MEDS ORDERED: LIDOCAINE 2% 2 ML VIAL/AMP(20MG/ML) INFIL ONE (13:35)
[2024-03-08] MEDS ORDERED: PROPOFOL IV EMULSION 10 MG/ML 20 ML VIAL IV ONE ×2 (13:35→15:30)
[2024-03-08] MEDS ORDERED: ROCURONIUM BROMIDE 10 MG/ML 5 ML VIAL IV ONE (13:35)
--- NOTE | 2024-03-08 13:35 | Anesthesiology Consultation ---
Date of Service March 08, 2024 Assessment & Plan Chart Review Chart Review: Acceptable Risk for Surgery and Patient NOT seen in Pre Admission Testing Consults Requested none ASA [id number] Proposed Anesthesia Anesthesia Type: General History Surgery Operation Date: 03/08/24 12:30 Proposed Procedures p Laparoscopic Appendectomy - Samuel Purdy, Height/Weight Height: 5 ft 4 in Weight: 133.4 kg Allergies Allergy/AdvReac Type Severity Reaction Status Date / Time adhesive Allergy Mild Red rash Verified 06/14/23 09:37 bee venom protein (honey bee) Allergy Mild Severe Verified 06/14/23 09:37 swelling, "heat" at bee sting site house dust Allergy Mild Sinusitis Verified 06/14/23 09:37 No Known Drug Allergies Allergy Unknown . Verified 06/14/23 09:37 Medications Home Medications Medication Instructions Recorded Confirmed Last Taken diclofenac sodium 1 % topical gel 2 g topical TID PRN Pain 10/25/18 03/08/24 05/16/21 (Voltaren Arthritis Pain) guaifenesin 1,200 mg tablet, 1,200 mg PO DAILY PRN Congestion 10/25/18 03/08/24 04/04/23 extended release 12 hr (Mucinex) metronidazole 0.75 % topical cream 1 applic topical BID PRN Other 10/25/18 03/08/24 04/10/23 10:00 (MetroCream) cholecalciferol (vitamin D3) 25 2,000 unit PO HS 05/19/20 03/08/24 04/10/23 10:00 mcg (1,000 unit) tablet (Vitamin D3) citalopram 40 mg tablet (Celexa) 40 mg PO HS 01/06/21 03/08/24 04/10/23 10:00 fluticasone propionate 50 2 spray intranasal HS 01/06/21 03/08/24 03/28/23 mcg/actuation nasal spray,suspension (Flonase Allergy Relief) acetaminophen 650 mg 650 mg PO Q12H PRN Pain 01/23/21 03/08/24 04/10/23 15:00 tablet,extended release cyanocobalamin (vitamin B-12) 1,000 mcg IM .COMPLEX 08/05/21 03/08/24 07/20/22 1,000 mcg/mL injection kit albuterol sulfate 90 mcg/actuation 2 puff inhalation Q6H PRN 03/04/22 03/08/24 04/11/23 09:00 aerosol inhaler shortness of breath or wheezing #8.5 grams fluticasone furoate 50 50 mcg inhalation BID 07/02/22 03/08/24 04/11/23 09:00 mcg/actuation blister powder for inhalation (Arnuity Ellipta) magnesium citrate 100 mg tablet 100 mg PO TID 07/02/22 03/08/24 04/10/23 09:00 melatonin 5 mg tablet 5 mg PO HS PRN Sleep 07/02/22 03/08/24 Unknown calcitriol 0.25 mcg capsule 0.25 mcg PO QAM 03/22/23 03/08/24 04/10/23 10:00 gabapentin 300 mg capsule 300 mg PO HS PRN Other 03/22/23 03/08/24 04/10/23 21:00 naproxen 500 mg tablet 500 mg PO BID PRN Pain 03/22/23 03/08/24 Unknown trazodone 50 mg tablet 50 mg PO HS 03/22/23 03/08/24 04/10/23 21:00 oxycodone 5 mg tablet 5 - 10 mg (1 - 2 x 5 mg) PO 03/08/24 Unknown .[id number] PRN pain #15 tabs Active Medications Generic Name Dose Route Start Last Admin Trade Name Freq PRN Reason Stop Dose Admin Morphine Sulfate 2 mg 03/08/24 12:22 03/08/24 13:03 Morphine Sulfate 2 Mg/Ml Carp IV 03/22/24 12:21 2 mg Q3H PRN Administration Mild-Mod Pain (Scale 1-6) Past Medical History Medical History History of diverticulitis one episode several yrs ago Hx of colonic polyps Osteoporosis History of COVID-20 Feb 2022 > not hospitalized > persistent shortness of breath Rx inhalers and monitored by PCP-denies recent change or worsening Morbid obesity Sleep apnea no longer on cpap since gastric bypass Asthma uses daily inhaler now ever since COVID 02/2022. rarely needs the rescue inhaler per pt-last used several months ago DJD Anxiety/Depression Exercise / Class Metabolic Activity II 4-5 Yardwork/Stairs/Walk up hill Past Family History Family History Brother Family history of diabetes mellitus Grandmother (Paternal) Family history of diabetes mellitus Sister Family history of diabetes mellitus Family/Other Family history of diabetes mellitus cousins Other No family history of adverse response to anesthesia Past Surgical History Surgical History History of cataract surgery bilat Hx of LASIK Hx of meniscectomy of right knee History of breast biopsy right-benign History of cystoscopy Cystoscopy, right stent placement (01/07/21): MAC at [facility], [place] History of left breast biopsy benign History of bilateral tubal ligation History of dilatation and curettage History of total hysterectomy with bilateral salpingo-oophorectomy (BSO) History of lithotripsy History of colonoscopy History of umbilical hernia repair x3 History of cholecystectomy History of gastric bypass age 56 History of wisdom tooth extraction Past Anesthesia History No Hx of Anesthesia Complications and No Family Hx of Anesthesia Complications History of PONV No Hx of PONV and No Hx of Motion Sickness Social History Smoking Status: Never smoker Do You Dip or Chew Tobacco: No Hx Alcohol Use: Yes Alcohol type: wine alcohol intake frequency: holidays/special occasions only Hx Substance Use: No substance use type: does not use Substance Use Type Other:: CBD Oil Physical Exam Vital Signs Last Vital Signs Temp 36.3 C L 03/08/24 06:16 Pulse 78 03/08/24 13:30 Resp 22 03/08/24 13:30 BP 205/95 H 03/08/24 13:00 Pulse Ox 99 03/08/24 13:06 O2 Del Method Room Air 03/08/24 07:02 O2 Flow Rate 2 03/08/24 06:36 Testing Laboratory Results 03/08/24 06:30 03/08/24 06:30 Urine Color Yellow 03/08/24 09:10 Urine Appearance Clear (Clear) 03/08/24 09:10 Urine pH 8.0 (4.5-7.5) H 03/08/24 09:10 Ur Specific Dexter 1.036 (1.000-1.030) H 03/08/24 09:10 Urine Protein Negative (Negative) 03/08/24 09:10 Urine Glucose (UA) Negative (Negative) 03/08/24 09:10 Urine Ketones Negative (Negative) 03/08/24 09:10 Urine Nitrite Negative (Negative) 03/08/24 09:10 Ur Leukocyte Esterase 1+ (Negative) H 03/08/24 09:10 Urine WBC (Auto) 21-50 /hpf (0-5) H 03/08/24 09:10 Urine RBC (Auto) 3-5 /hpf (0-2) H 03/08/24 09:10 U Hyaline Cast (Auto) 0-2 /lpf (0-2) 03/08/24 09:10 U Epithel Cells (Auto) 0-2 /hpf (0-2) 03/08/24 09:10 Urine Bacteria (Auto) 4+ (None Seen) H 03/08/24 09:10 Electrocardiogram Date: 03/29/23 Findings: + NSR @ (@ 61) Chest X-Ray Date: 03/08/24 Findings: + NAD and + cardiomegaly Stress Test Date: 12/05/20 Type: DSE Findings: + WNL Resting EF: 55%
[2024-03-08] MEDS ORDERED: DEXAMETHASONE SOD INJ 4 MG/ML VIAL ONE (13:36)
[2024-03-08] MEDS ORDERED: ONDANSETRON INJ 2 MG/ML 2 ML VIAL ONE (13:36)
[2024-03-08] MEDS: SODIUM CHLORIDE 0.9% 1,000 ML IV SCH (13:55)
[2024-03-08] MEDS ORDERED: ATROPINE SULFATE 0.1 MG/ML 10ML SYR IV PRN (14:32)
[2024-03-08] MEDS ORDERED: LABETALOL HCL IV 5 MG/ML 20ML IV PRN (14:32)
[2024-03-08] MEDS ORDERED: DROPERIDOL 5 MG/2 ML VIAL IV PRN (14:32)
[2024-03-08] MEDS ORDERED: FLUMAZENIL 0.1 MG/1 ML 10 ML VIAL IV PRN (14:32)
[2024-03-08] MEDS ORDERED: ePHEDrine sulfate 50 MG/ML AMP IV PRN (14:32)
[2024-03-08] MEDS ORDERED: NALOXONE HCL 0.4 MG/1 ML VIAL/CARP IV PRN (14:32)
[2024-03-08] MEDS ORDERED: fentaNYL citrate PF 100 MCG/2 ML VIAL IV PRN (14:32)
[2024-03-08] MEDS ORDERED: hydrALAZINE HCL 20 MG/ML VIAL ONE (15:19)
[2024-03-08] MEDS: BUPIVACAINE/EPINEPHRINE 0.5% MPF 1:200,000 30 ML VIAL ONE (15:26)
[2024-03-08] MEDS ORDERED: SUGAMMADEX SODIUM 200 MG/2 ML VIAL IV ONE (15:26)
[2024-03-08] MEDS ORDERED: KETOROLAC 30 MG/ML VIAL ONE (15:26)
--- NOTE | 2024-03-08 15:56 | Hospitalist Consultation ---
Date of Consultation March 08, 2024 Assessment & Plan (1) Acute appendicitis: (2) Asthma: (3) Hyperparathyroidism: (4) Vitamin D deficiency: (5) Osteoarthritis: Plan S/p Lap Appendectomy Acute Appendicitis - Admitted to general surgery service - POD #0 - Pain management, bowel regimen per primary service, last BM yesterday - Check a.m. labs including CBC, BMP for monitoring, add A1C with glucose elevation on admission Hypertension -Patient is 210/115 prior to lap appendectomy, will monitor BP trends with Q4H vitals -Received hydralazine 15 mg IV x 1 preoperatively per anesthesia and improved to 180s/80 -May continue PO hydralazine 10 mg Q6H prn for SBP >180 or DBP > 100. - CXR with cardiomegaly- will obtain ECHO - Can consider amlodipine 2.5 mg QAM starting tomorrow, adjust as tolerated/necessary if BP elevates again. At this time s/p lap appi it is stable. UA appears suspicious for UTI Renal Lesion, Possible Renal cell carcinoma - Follow urine culture, follow, previous grew out E.Coli - CT abd showing nonobstructing bilateral nephrolithiasis. 11 mm complex cystic lesion of the left kidney is similar to prior, previously described as suspicious for renal cell carcinoma. - Follows with [facility] as outpatient - will need to determine if needs for biopsy as outpatient is planned/warranted - pt reports monitoring by urology - Admits to urinary frequency, no hematuria or dysuria R Hilar opacity -CXR reviewed personally : 1. Right hilar fairly defined radioopacity measuring 27 x 27mm compared to 20 x 25mm in a prior study advised clinical correlation and CT assessment if clinically warranted. 2. Bilateral prominent hyun seen. - Check CT chest to evaluate opacity Osteoarthritis - PT/OT - Continue to ambulate prn with assistance postoperatively with walker device with hx of bilateral knee arthritis. Fall precautions - Gabapentin 300 mg HS, meloxicam 7.5 mg QAM, - Calcitriol 0.25 every morning, calcium and Vit D supplements Hx of gastric bypass surgery -Gets B12 injections every 4 weeks Hyperparathyroidism - Chronic, stable - ?possible is this worsening BP elevation? DVT ppx: teds, scds Lines: PIV x 1 FEN/GI: Heart healthy diet once out of PACU CODE: Full code Dispo: From home, likely to remain in the hospital x 1-2 days A total of 75 minutes were spent with greater than 50% of that time face to face with the patient, personally reviewing all current laboratories, imaging studies, past medication reconciliation, outpatient chart review, and discussion with specialists to collaborate care for the patient with attending. Please see attending documentation for corrections and/or additions. Supervising Physician Co-Signing Physician Notes Patient is a 73-year-old female with history of morbid obesity, nephrolithiasis, complex renal cyst, hyperparathyroidism, vitamin D deficiency, mood disorder, chronic polyps and other medical problems was consulted for management of hypertension. Patient underwent laparoscopic appendectomy by Dr. Samuel Purdy. Postoperatively, patient is doing well with no significant abdominal pain at surgical site. Also denies any nausea, vomiting, chest pain, dyspnea, dizziness. Patient states that she started to notice to have right-sided abdominal pain yesterday which gradually worsened and is associated with nausea. She denies any fever, chills. Admits to have increased urinary frequency but denies any dysuria, hematuria. No known history of hypertension as per patient but preoperatively patient had elevated blood pressure. She denies any headache, change in vision. I personally reviewed blood work and imaging studies. Noted leukocytosis, hyperglycemia, urinalysis suggestive of possible UTI. Imaging studies showed complex left kidney cystic lesion and right hilar opacity. Physical Exam: Vitals signs as noted above General Appearance:Morbidly obese, no apparent distress Head: normocephalic, Atraumatic Eyes: normal inspection, EOMI Neck: supple, Trachea midline Respiratory/Chest: Normal breath sounds, CTA, No accessory muscle use Cardiovascular: S1, S2, No murmur Abdomen/GI:Soft, Non tender, Bowel sounds present, + laparoscopic surgical scars Extremities/Musculoskeletal:normal inspection, no edema Neurologic/Psych:AAOX3, grossly no focal neurological deficits Skin: normal color, warm Hypertensive urgency Likely situational ? Secondary hypertension H/O hyperparathyroidism Given cardiomegaly on chest x-ray, will obtain echo Postoperatively blood pressure well-controlled Will add hydralazine as needed for now Monitor and adjust medications as needed Possible UTI Empirically on IV Rocephin Urine culture pending Hyperglycemia Check A1c Morbid obesity BMI 50 Right hilar opacity Unclear etiology Will obtain CT chest Postoperative state S/P laparoscopic appendectomy Management as per surgery team Consider adding DVT prophylaxis cleared by surgery I personally interviewed and examined at bedside. Patient's care is coordinated with Alicia Cerna PA-C. I have reviewed the advanced practitioner's documentation, and I agree with plan of care. Please refer to the documentation above for details of patient's presentation and for discussion of other issues. I spent a total [id number] coordinating, documenting, and providing care for this patient excluding time spent in the performance of separately billed services. History of Present Illness Reason for Consultation: Medical management, hypertension Requesting Physician: Dr. Purdy Attending Physician: Samuel Purdy, DO History of Present Illness This is a 73-year-old female with PMHx of diffuse osteoarthritis including bilateral knees, tremor, hyperparathyroidism, history of nephrolithiasis who presented to the hospital with acute onset of right low back pain wrapping around the R flank to the RLQ started yesterday. She drank a lot of water last evening as she thought this was similar to previous kidney stone pain. Pt used tylenol for pain which didn't help much. She continued to feel worse so presented to the ER. Upon CT abdominal imaging and was found the patient had acute appendicitis and nonobstructing bilateral nephrolithiasis. Also noted is a 11 mm complex cystic lesion of the left kidney is similar to prior, previously described as suspicious for renal cell carcinoma. She denies knowlegde of further planned workup and says that it is being monitored. CXR shows hilar opacity which she is unaware of. Pt denies hx of smoking. Patient underwent laparoscopic appendectomy by Dr. Purdy on 03/08. It was noted that the patient had BP elevated at 210/115 prior to surgical procedure. She did receive hydralazine 50 mg IV per anesthesia prior to the procedure. It is likely that pain and situational anxiety has worsened acute blood pressure elevation. No history of hypertension. With pain control she will not likely require any further antihypertensives. Medicine has been consulted for blood pressure management. While in the PACU pt BP has been 125/50 on several reads. Pt denies any chest or breathing complaints. Afebrile. Allergies Allergy/AdvReac Type Severity Reaction Status Date / Time adhesive Allergy Mild Red rash Verified 03/08/24 13:44 bee venom protein (honey bee) Allergy Mild Severe Verified 03/08/24 13:44 swelling, "heat" at bee sting site house dust Allergy Mild Sinusitis Verified 03/08/24 13:44 No Known Drug Allergies Allergy Unknown . Verified 03/08/24 13:44 Home Medications Medication Instructions Recorded Confirmed Type diclofenac sodium 1 % topical gel 2 g topical TID PRN Pain 10/25/18 03/08/24 History (Voltaren Arthritis Pain) guaifenesin 1,200 mg tablet, 1,200 mg PO DAILY PRN Congestion 10/25/18 03/08/24 History extended release 12 hr (Mucinex) metronidazole 0.75 % topical cream 1 applic topical BID PRN Other 10/25/18 03/08/24 History (MetroCream) cholecalciferol (vitamin D3) 25 2,000 unit PO HS 05/19/20 03/08/24 History mcg (1,000 unit) tablet (Vitamin D3) citalopram 40 mg tablet (Celexa) 40 mg PO HS 01/06/21 03/08/24 History fluticasone propionate 50 2 spray intranasal HS 01/06/21 03/08/24 History mcg/actuation nasal spray,suspension (Flonase Allergy Relief) acetaminophen 650 mg 650 mg PO Q12H PRN Pain 01/23/21 03/08/24 History tablet,extended release cyanocobalamin (vitamin B-12) 1,000 mcg IM .COMPLEX 08/05/21 03/08/24 History 1,000 mcg/mL injection kit albuterol sulfate 90 mcg/actuation 2 puff inhalation Q6H PRN 03/04/22 03/08/24 Rx aerosol inhaler shortness of breath or wheezing #8.5 grams fluticasone furoate 50 50 mcg inhalation BID 07/02/22 03/08/24 History mcg/actuation blister powder for inhalation (Arnuity Ellipta) magnesium citrate 100 mg tablet 100 mg PO TID 07/02/22 03/08/24 History melatonin 5 mg tablet 5 mg PO HS PRN Sleep 07/02/22 03/08/24 History calcitriol 0.25 mcg capsule 0.25 mcg PO QAM 03/22/23 03/08/24 History gabapentin 300 mg capsule 300 mg PO HS PRN Other 03/22/23 03/08/24 History naproxen 500 mg tablet 500 mg PO BID PRN Pain 03/22/23 03/08/24 History trazodone 50 mg tablet 50 mg PO HS 03/22/23 03/08/24 History oxycodone 5 mg tablet 5 - 10 mg (1 - 2 x 5 mg) PO 03/08/24 03/08/24 Rx .[id number] PRN pain #15 tabs Patient History Medical History History of diverticulitis one episode several yrs ago Hx of colonic polyps Osteoporosis History of COVID-20 Feb 2022 > not hospitalized > persistent shortness of breath Rx inhalers and monitored by PCP-denies recent change or worsening Morbid obesity Sleep apnea no longer on cpap since gastric bypass Asthma uses daily inhaler now ever since COVID 02/2022. rarely needs the rescue in haler per pt-last used several months ago Surgical History History of cataract surgery bilat Hx of LASIK Hx of meniscectomy of right knee History of breast biopsy right-benign History of cystoscopy Cystoscopy, right stent placement (01/07/21): MAC at [facility] History of left breast biopsy benign History of bilateral tubal ligation History of dilatation and curettage History of total hysterectomy with bilateral salpingo-oophorectomy (BSO) History of lithotripsy History of colonoscopy History of umbilical hernia repair x3 History of cholecystectomy History of gastric bypass age 56 History of wisdom tooth extraction Family History Brother Family history of diabetes mellitus Grandmother (Paternal) Family history of diabetes mellitus Sister Family history of diabetes mellitus Family/Other Family history of diabetes mellitus cousins Other No family history of adverse response to anesthesia Social History Smoking Status: Never smoker Second Hand Exposure: No; Do You Dip or Chew Tobacco: No; Hx Alcohol Use: No Hx Substance Use: No Preferred Language: Occitan Communication Ability: Effective Visual Impairment: No Limitations Environmental Health Nurse Required: No Beliefs That Will Affect Care: None Current Living Situation: Spouse current occupational status: retired Other Information That Helps Us Care for You: No Feels Safe at Home: Yes Safety Concerns: Feels Safe At This Time Assistive Devices: Glasses Review of Systems Review of Systems: Constitutional: No fever, sweats or chills Eyes: No diplopia, no worsening or blurred vision ENT: normal hearing, no trouble swallowing Respiratory: No cough, sputum, dyspnea at rest or on exertion Cardiovascular: No chest pain, tightness or palpitations Abdomen:As per HPI, currently No pain, nausea, vomiting, diarrhea or constipation, last BM yesterday Musculoskeletal: No joint pain, calf pain, swelling : + increased urinary frequency, no dysuria or hematuria Neurologic: No weakness, numbness/tingling, or balance problems, walks ok, no recent falls. Psychiatric: No anxiety or depression Skin: No rash or itch Physical Exam Physical Exam: General: awake, alert, no apparent distress, obese white female Head: Normocephalic, atraumatic ENT: PERRL, EOMI, no pharyngeal exudate, mucous membranes slightly dry Chest: Clear to auscultation, on 2L in PACU with adequate O2 sats, no adventitious breath sounds Cardiac: BP is 125/53 at bedside, Regular rate and rhythm, no murmur, no JVD, normal peripheral pulses, good capillary refill Abdominal: hypoactive BS x 4 quadrants, soft, + incision site s/p lap appi x 3, nondistended, nontender to palpation, no rebound or guarding Extremities: Normal inspection, no peripheral edema or erythema, calfs nontender to palpation Psych: Normal mood and affect Neuro: AAO x 3, strength intact bilaterally and rated 5/5, no motor deficits, speech is clear, no peripheral sensory deficits Results & Data Results & Data Vital Signs (Past 12 Hours) Vital Signs Temp Pulse Pulse Resp BP BP Pulse Ox 03/08/24 14:18 03/08/24 14:18 37.2 C 76 20 188/80 H 98 03/08/24 13:48 37.2 C 76 20 188/80 H 98 03/08/24 13:30 78 22 03/08/24 13:06 71 20 99 03/08/24 13:00 /95 H 03/08/24 13:00 / H 03/08/24 13:00 / H 03/08/24 12:54 71 23 96 03/08/24 12:30 69 19 97 03/08/24 12:12 70 98 03/08/24 12:00 210/115 H 03/08/24 12:00 210/115 H 03/08/24 11:57 67 18 99 03/08/24 11:36 67 18 98 03/08/24 11:32 208/109 H 03/08/24 11:32 208/109 H 03/08/24 11:32 208/109 H 03/08/24 11:30 71 25 H 99 03/08/24 11:12 67 19 99 03/08/24 10:30 68 22 100 03/08/24 10:03 67 22 95 03/08/24 10:00 149/82 H 03/08/24 10:00 149/82 H 03/08/24 09:57 67 18 95 03/08/24 09:33 68 19 96 03/08/24 09:31 150/93 H 03/08/24 09:30 78 18 95 03/08/24 09:12 74 18 97 03/08/24 09:10 161/64 H 03/08/24 09:10 161/64 H 03/08/24 09:10 161/64 H 03/08/24 08:57 73 92 03/08/24 08:36 67 21 94 03/08/24 08:00 173/80 H 03/08/24 08:00 73 15 96 03/08/24 07:33 73 18 96 03/08/24 07:31 152/62 H 03/08/24 07:31 152/62 H 03/08/24 07:31 152/62 H 03/08/24 07:15 65 22 95 03/08/24 07:06 78 20 96 03/08/24 07:06 214/82 H 03/08/24 07:06 214/82 H 03/08/24 07:06 214/82 H 03/08/24 07:06 214/82 H 03/08/24 07:06 214/82 H 03/08/24 07:03 71 18 98 03/08/24 07:02 03/08/24 06:37 200/96 H 03/08/24 06:37 200/96 H 03/08/24 06:37 69 03/08/24 06:36 71 22 200/96 H 95 03/08/24 06:16 36.3 C L 74 18 216/94 H 91 O2 Del Method O2 Flow Rate 03/08/24 14:18 Nasal Cannula 2 03/08/24 14:18 Nasal Cannula 2 03/08/24 13:48 Nasal Cannula 2 03/08/24 13:30 03/08/24 13:06 03/08/24 13:00 03/08/24 13:00 03/08/24 13:00 03/08/24 12:54 03/08/24 12:30 03/08/24 12:12 03/08/24 12:00 03/08/24 12:00 03/08/24 11:57 03/08/24 11:36 03/08/24 11:32 03/08/24 11:32 03/08/24 11:32 03/08/24 11:30 03/08/24 11:12 03/08/24 10:30 03/08/24 10:03 03/08/24 10:00 03/08/24 10:00 03/08/24 09:57 03/08/24 09:33 03/08/24 09:31 03/08/24 09:30 03/08/24 09:12 03/08/24 09:10 03/08/24 09:10 03/08/24 09:10 03/08/24 08:57 03/08/24 08:36 03/08/24 08:00 03/08/24 08:00 03/08/24 07:33 03/08/24 07:31 03/08/24 07:31 03/08/24 07:31 03/08/24 07:15 03/08/24 07:06 03/08/24 07:06 03/08/24 07:06 03/08/24 07:06 03/08/24 07:06 03/08/24 07:06 03/08/24 07:03 03/08/24 07:02 Room Air 03/08/24 06:37 03/08/24 06:37 03/08/24 06:37 03/08/24 06:36 Nasal Cannula 2 03/08/24 06:16 Room Air Laboratory Results 03/08/24 09:10 Urine Culture - Pending Urine,Clean Catch 03/08/24 03/08/24 09:10 06:30 WBC 15.59 H RBC 4.31 Hgb 12.0 Hct 40.5 MCV 94.0 MCH 27.8 MCHC 29.6 L RDW Std Deviation 48.3 H RDW Coeff of Radha 13.9 Plt Count 289 MPV 10.8 Immature Gran % (Auto) 0.4 Neut % (Auto) 79.6 Lymph % (Auto) 12.8 [place] % (Auto) 6.2 Eos % (Auto) 0.6 Baso % (Auto) 0.4 Neut # (Auto) 12.41 H Lymph # (Auto) 1.99 [place] # (Auto) 0.96 H Eos # (Auto) 0.10 Baso # (Auto) 0.06 Immature Gran # (Auto) 0.07 Sodium 140 Potassium 4.0 Chloride 99 Carbon Dioxide 34 H Anion Gap 7 BUN 16 Creatinine 0.71 Est Cr Clr Drug Dosing 94.6 eGFR 89.17 BUN/Creatinine Ratio 22.5 H Glucose 144 H Calcium 9.4 Total Bilirubin 0.4 AST 15 ALT 5 L Alkaline Phosphatase 80 Total Protein 7.2 Albumin 3.9 Globulin 3.3 Albumin/Globulin Ratio 1.2 Lipase 16 Urine Color Yellow Urine Appearance Clear Urine pH 8.0 H Ur Specific Dexter 1.036 H Urine Protein Negative Urine Glucose (UA) Negative Urine Ketones Negative Urine Blood Trace H Urine Nitrite Negative Urine Bilirubin Negative Urine Urobilinogen Negative Ur Leukocyte Esterase 1+ H Urine WBC (Auto) 21-50 H Urine RBC (Auto) 3-5 H U Hyaline Cast (Auto) 0-2 U Epithel Cells (Auto) 0-2 Urine Bacteria (Auto) 4+ H Diagnostic Findings Abdomen/Pelvis CT 03/08/24 06:[address] WITH IV CONTRAST CT DOSE: 1479.25 mGy.cm HISTORY: Acute right flank pain right flank pain TECHNIQUE: Multiaxial CT images of the abdomen and pelvis were performed following the IV administration of 94 cc of Optiray, A dose lowering technique was utilized adhering to the principles of ALARA. COMPARISON STUDY: Renal ultrasound of same day, CT abdomen 03/08/2023 FINDINGS: Cardiomegaly with coronary artery calcifications. Mild bibasilar atelectasis versus scarring. No pneumatosis or pneumoperitoneum. Unchanged indeterminate 1.4 cm splenic lesion. Unremarkable pancreas and adrenal glands. Stable hepatic cysts. Patency of the hepatic and portal veins. Cholecystectomy. Bilateral complex and simple renal cysts redemonstrated. Complex cystic lesion within the posterior interpolar left kidney on image 135 measuring 11 mm is similar to prior report measured 10 mm and contains subcentimeter calcifications. Nonobstructing 3 mm calculus of the inferior pole left kidney. Calculus interpolar right kidney measure up to 4 mm. No ureteral calculi or hydronephrosis. Unremarkable urinary bladder. Hysterectomy. No abdominal aortic aneurysm. Small hiatal hernia. Jeevan-en-Y gastric bypass. No bowel obstruction. The appendix is dilated and fluid-filled measuring up to 1.5 cm. Moderate adjacent inflammatory stranding without abscess. Ventral abdominal wall herniorrhaphy. No acute fracture. IMPRESSION: 1. Acute uncomplicated appendicitis. 2. No bowel obstruction, pneumoperitoneum or abscess. 3. Nonobstructing bilateral nephrolithiasis. 4. 11 mm complex cystic lesion of left kidney is similar to prior, previously described as suspicious for renal cell carcinoma. ACT 112: Negative or not required by law. The above report was generated using voice recognition software. It may contain grammatical, syntax or spelling errors. Electronically signed by: Grzegorz Servin M.D. 03/08/2024 10:54 AM Chest X-Ray 03/08/24 06:55 EXAM: XR chest 1V portable CLINICAL HISTORY: VOMITING TGB TECHNIQUE: X-ray image of the chest is obtained in AP projection. COMPARISON: Prior study dated 03/29/2023. FINDINGS: Pulmonary Parenchyma: Right hilar fairly defined radioopacity measuring 27 x 27mm compared to 20 x 25mm in a prior study advised clinical correlation and CT assessment if clinically warranted. Bilateral prominent hyun seen. No evidence of pleural effusion or pleural thickening. Heart and Mediastinum: Apparent cardiomegaly. No mediastinal widening or masses. No hilar or mediastinal lymphadenopathy. Bony Thorax: Thoracic spondylosis in the form of sclerosed end plates and osteophytosis. Soft Tissues: Soft tissues overlying the chest wall are unremarkable. IMPRESSION: 1. Right hilar fairly defined radioopacity measuring 27 x 27mm compared to 20 x 25mm in a prior study advised clinical correlation and CT assessment if clinically warranted. 2. Bilateral prominent hyun seen. 3. Apparent cardiomegaly. DISCLAIMER:A subtle bone abnormality or fracture may not be readily apparent on x-rays, thus clinical correlation and further imaging including follow up CT, MRI, or follow up x-rays are advised as needed. Electronically signed by Angelique Nieto 03-08-2024 08:11 AM
--- NOTE | 2024-03-08 16:07 | Operative Report ---
[facility] Post Operative Report Pre & Post Diagnosis Operation Date: 03/08/24 12:30 Pre-Op Diagnosis: Acute appendicitis Post-Op Diagnosis: Acute appendicitis I identified the patient and participated in the time-out.: Yes Procedure Operation Date: 03/08/24 12:30 Actual Procedures p Laparoscopic Appendectomy(Not Applicable) - Samuel Purdy DO Surgeon Samuel Purdy DO Forming Department Supervisor kim Chisholm Estimated Blood Loss 10 Findings Consistent with Post-Op Diagnosis Specimens appendix Description of Procedure After informed consent was obtained the patient was taken to the operating room and placed in supine position. After successful intubation the abdomen was sterilely prepped and draped in usual fashion. I began by making a p eriumbilical incision with an 11 blade scalpel and carried this down through the soft tissue using electrocautery. The anterior rectus fascia was opened using electrocautery and 2 #0 Vicryl stay sutures were placed. The peritoneum was elevated using hemostats and incised under direct vision using a Metzenbaum scissor. A finger sweep was performed. A 12 mm Ya trocar was placed and the abdomen was insufflated to 18 mmHg. A laparoscope was inserted and the abdomen was examined in 360. There were a lot of adhesions throughout the abdominal cavity. I was able to find several windows and a suprapubic 5 mm port and a left lower quadrant 12 mm port were placed under direct vision. The patient was air planed to the left as well as placed in a slight Trendelenburg position. We began by looking in the right lower quadrant. The cecum itself was adhesed to the anterior abdominal wall and towards the midline. We were able to readily identify the appendix and it was grossly inflamed. It had not perforated. There was a small amount of purulent fluid in the right lower quadrant and the pelvis. We immediately irrigated and suctioned this out. I was able to use primarily blunt dissection to pull the appendix away from the cecum. Next I was able to find the base of the appendix and make a small window in the mesentery of the appendix using a [place] dissector. I was then able to use a MYRON camejo cartridge stapler to first transect the mesentery of the appendix followed by the appendix itself at its base with the cecum. It was then placed into an Endo Catch bag and removed from the camera port site. We thoroughly irrigated the right lower quadrant as well as the pelvis. There was adequate hemostasis. I ran the small bowel backwards from the terminal ileum for about 6 feet all of which was normal. All the peritoneal surfaces were normal. Small/ large bowel, liver, stomach etc. all appeared grossly normal other than the previously mentioned adhesions. we did a final irrigation and then removed all the trochars and desufflated the abdomen. The fascia of the camera port was closed using 0 Ethibond in [id number] fashion. Wounds were all irrigated and closed using 4-0 Monocryl. Marcaine was injected around them for postoperative analgesia and skin glue used as a dressing. The patient was awakened extubated and transferred to recovery in stable condition. My physician's household personal assistant was present through the entire case. She assisted with prepping the patient and helped with exposure for port placement, helped run the camera and helped with fascial/wound closure at the end of the procedure as well as dressing placement. I attest to the content of the Intraoperative Record and any orders documented therein. Any exceptions are noted below. I attest to the content of the Intraoperative Record and any orders documented therein. Any exceptions are noted below.
[2024-03-08] MEDS ORDERED: hydrALAZINE HCL 20 MG/ML VIAL IV PRN (16:24)
--- NOTE | 2024-03-08 17:04 | Anesthesiology Progress Note ---
Date of Service March 08, 2024 Anesthesia Post Procedure Vital Signs Vital Signs: Temp Pulse Pulse Resp BP BP Pulse Ox 03/08/24 16:55 36.9 C 82 19 139/60 92 03/08/24 16:45 84 23 133/53 L 92 03/08/24 16:35 88 27 H 123/51 L 93 03/08/24 16:25 91 H 23 127/49 L 93 03/08/24 16:16 36.5 C 94 H 22 140/61 89 L 03/08/24 14:18 03/08/24 14:18 37.2 C 76 20 188/80 H 98 03/08/24 13:48 37.2 C 76 20 188/80 H 98 03/08/24 13:30 78 22 03/08/24 13:06 71 20 99 03/08/24 13:00 205/95 H 03/08/24 13:00 205/95 H 03/08/24 13:00 205/95 H 03/08/24 12:54 71 23 96 03/08/24 12:30 69 19 97 03/08/24 12:12 70 98 03/08/24 12:00 210/115 H 03/08/24 12:00 210/115 H 03/08/24 11:57 67 18 99 03/08/24 11:36 67 18 98 03/08/24 11:32 208/109 H 03/08/24 11:32 208/109 H 03/08/24 11:32 208/109 H 03/08/24 11:30 71 25 H 99 03/08/24 11:12 67 19 99 03/08/24 10:30 68 22 100 03/08/24 10:03 67 22 95 03/08/24 10:00 149/82 H 03/08/24 10:00 149/82 H 03/08/24 09:57 67 18 95 03/08/24 09:33 68 19 96 03/08/24 09:31 150/93 H 03/08/24 09:30 78 18 95 03/08/24 09:12 74 18 97 03/08/24 09:10 161/64 H 03/08/24 09:10 161/64 H 03/08/24 09:10 161/64 H 03/08/24 08:57 73 92 03/08/24 08:36 67 21 94 12/05/24 08:00 173/80 H 03/08/24 08:00 73 15 96 03/08/24 07:33 73 18 96 03/08/24 07:31 152/62 H 03/08/24 07:31 152/62 H 03/08/24 07:31 152/62 H 03/08/24 07:15 65 22 95 03/08/24 07:06 78 20 96 03/08/24 07:06 214/82 H 03/08/24 07:06 214/82 H 03/08/24 07:06 214/82 H 03/08/24 07:06 214/82 H 03/08/24 07:06 214/82 H 03/08/24 07:03 71 18 98 03/08/24 07:02 03/08/24 06:37 200/96 H 03/08/24 06:37 200/96 H 03/08/24 06:37 69 03/08/24 06:36 71 22 200/96 H 95 03/08/24 06:16 36.3 C L 74 18 216/94 H 91 O2 Del Method O2 Flow Rate 03/08/24 16:55 Nasal Cannula 4 03/08/24 16:45 Nasal Cannula 4 03/08/24 16:35 Nasal Cannula 4 03/08/24 16:25 Oxymask 6 03/08/24 16:16 Oxymask 15 03/08/24 14:18 Nasal Cannula 2 03/08/24 14:18 Nasal Cannula 2 03/08/24 13:48 Nasal Cannula 2 03/08/24 13:30 03/08/24 13:06 03/08/24 13:00 03/08/24 13:00 03/08/24 13:00 03/08/24 12:54 03/08/24 12:30 03/08/24 12:12 03/08/24 12:00 03/08/24 12:00 03/08/24 11:57 03/08/24 11:36 03/08/24 11:32 03/08/24 11:32 03/08/24 11:32 03/08/24 11:30 03/08/24 11:12 03/08/24 10:30 03/08/24 10:03 03/08/24 10:00 03/08/24 10:00 03/08/24 09:57 03/08/24 09:33 03/08/24 09:31 03/08/24 09:30 03/08/24 09:12 03/08/24 09:10 03/08/24 09:10 03/08/24 09:10 03/08/24 08:57 03/08/24 08:36 03/08/24 08:00 03/08/24 08:00 03/08/24 07:33 03/08/24 07:31 03/08/24 07:31 03/08/24 07:31 03/08/24 07:15 03/08/24 07:06 03/08/24 07:06 03/08/24 07:06 03/08/24 07:06 03/08/24 07:06 03/08/24 07:06 03/08/24 07:03 03/08/24 07:02 Room Air 03/08/24 06:37 03/08/24 06:37 03/08/24 06:37 03/08/24 06:36 Nasal Cannula 2 03/08/24 06:16 Room Air Pain Intensity Flank: Pain Intensity: 7 Right Lower Abdomen: Pain Intensity: 8 Transfer of Care Handoff Completed per policy Notes Mental Status: alert / awake / arousable Patient Amnestic to Procedure: Yes Nausea / Vomiting: adequately controlled Pain: adequately controlled Airway Patency, RR, SpO2: stable & adequate BP & HR: stable & adequate Hydration State: stable & adequate Anesthetic Complications: no major complications apparent
[2024-03-08] MEDS ORDERED: GABAPENTIN 300 MG CAP PO PRN (17:58)
[2024-03-08] MEDS ORDERED: oxyCODONE HCL IR 5 MG TAB (IMMEDIATE RELEASE) PO PRN ×2 (17:58)
[2024-03-08] MEDS ORDERED: ALBUTEROL HFA 8 GM INHALER INH PRN (17:58)
[2024-03-08] MEDS ORDERED: hydrALAZINE 10 MG TAB PO PRN (17:58)
[2024-03-08] MEDS: ACETAMINOPHEN 325 MG TAB PO PRN (21:08)
[2024-03-08] MEDS: CITALOPRAM 40 MG TAB PO SCH (21:08)
[2024-03-08] MEDS: FLUTICASONE PROPIONATE NA SPR 16 GM BTL SCH (21:08)
[2024-03-08] MEDS: traZODone HCL 50 MG TAB PO SCH (21:08)
[2024-03-08] MEDS: FLUTICASONE FUROATE 100MCG 14 PUFFS/INHALER INH SCH (21:09)
[2024-03-09 07:41] LABS: Basophils # (auto) 0.01 K/uL (0.00-0.20); Basophils % (auto) 0.1 %; Hematocrit (blood only) 34.2 % (37.0-47.0); Hemoglobin 10.1 g/dl (12.0-16.0); Immature Granulocytes # (auto) 0.06 K/uL (0.01-0.20); Immature Granulocytes % (auto) 0.4 %; Lymphocytes # (auto) 0.97 K/uL (1.20-3.40); Lymphocytes % (auto) 6.6 %; Mean Corpuscular Hemoglobin 28.4 pg (25.0-34.0); Mean Corpuscular Hgb Conc 29.5 g/dL (32.0-36.0); Mean Corpuscular Volume 96.1 fL (80.0-100.0); Mean Platelet Volume 11.2 fL (9.4-12.4); Monocytes # (auto) 0.61 K/uL (0.11-0.59); Monocytes % (auto) 4.1 %; Neutrophils # (auto) 13.15 K/uL (1.40-6.50); Neutrophils % (auto) 88.8 %; Platelet Count 243 K/uL (130-400); RDW Coefficient of Variation 14.2 % (11.5-14.5); RDW Standard Deviation 50.4 fL (36.4-46.3); Red Blood Count 3.56 M/uL (4.20-5.40)
[2024-03-09 08:55] LABS: Estimated Average Glucose 123 mg/dl; Hemoglobin A1C 5.9 % (4.5-5.6)
[2024-03-09] MEDS ORDERED: amLODIPine BESYLATE 5 MG TAB PO SCH (09:00)
--- NOTE | 2024-03-09 09:50 | Surgery Progress Note ---
Date of Service March 09, 2024 Assessment & Plan (1) Acute appendicitis: Plan: Postoperative day #1 Doing well from my standpoint Pulmonary workup in progress From my standpoint she could go home later today. Admission and Anticipated Discharge Date Admission Date: March 08, 2024 Subjective Patient seen. Feeling well overall. Physical Exam Physical Exam: Alert no acute distress Abdomen is soft with expected tenderness. Her incisions look good. Results & Data Vital Signs (Past 12 Hours) Vital Signs Temp Pulse Resp BP Pulse Ox O2 Del Method O2 Flow Rate 03/09/24 07:42 Nasal Cannula 2 03/09/24 07:20 95 Nasal Cannula 2 03/09/24 07:00 36.7 C 65 18 128/69 96 Room Air 03/09/24 05:09 96 Nasal Cannula 2 03/09/24 05:09 86 L Room Air 03/09/24 03:37 36.5 C 73 20 151/64 H 95 Nasal Cannula 2 03/08/24 23:10 36.8 C 94 H 18 155/71 H 93 Nasal Cannula 2 PG Care Time/CCT Total # of Minutes Spent Total Time Spent with Patient: Total time spent is greater than 50% in coordination of care (as documented) at patient's floor/unit and/or counseling patient: Coding Level of Care Code 52737 Post Operative Follow-Up Diagnoses Acute appendicitis K35.80 Acute appendicitis type: unspecified acute appendicitis type (1) Acute appendicitis Acute appendicitis type: unspecified acute appendicitis type Qualified Code(s): K35.80 - Unspecified acute appendicitis
[2024-03-09 09:52] LABS: Calcium 8.2 mg/dl (8.6-10.3); Magnesium 1.9 mg/dl (1.7-2.4)
[2024-03-09 09:57] LABS: BUN Creatinine Ratio 22.1 (10-20); Creatinine Clr Calc Pharmacy 87.2 ml/min
[2024-03-09 10:02] LABS: Potassium 4.2 mmol/L (3.5-5.1)
--- NOTE | 2024-03-09 10:20 | CT Scan Report ---
CT chest diagnostic wo con CT DOSE: 781.91 mGy.cm CLINICAL HISTORY: 73 years-old Female with Eval hilar opacity. Acute nausea and vomiting with asymme tric right hilar opacity seen on comparison chest radiograph TECHNIQUE: Multiaxial CT images of the chest were performed without contrast. A dose lowering techni que was utilized adhering to the principles of ALARA. COMPARISON: Chest radiograph 03/08/2024, CT abdomen 03/08/2023 FINDINGS: Thyroid goiter. No lymphadenopathy. Mild cardiomegaly with extensive coronary artery calcif ications. No thoracic aortic aneurysm. Dilated main pulmonary artery measures up to 3.7 cm. No pneumothorax, pleural effusion or overt pulmonary edema. Linear subsegmental areas of bibasilar pr ominent atelectasis versus scarring. 3 mm fissural nodule the super segment right lower lobe on image 92 suggests a benign lymph node. Mild scattered ill-defined groundglass nodular foci are seen within the left greater than right upper lobes. Central airways are patent. Postoperative changes of the stomach. Hepatic cysts redemonstrated. Unremarkable soft tissues. No acu te fracture. IMPRESSION: 1. Mild subtle groundglass densities in the upper lobes suggestive of an infectious or inflammatory p neumonitis. 2. No lymphadenopathy, pleural effusion or lobar airspace consolidation. 3. Cardiomegaly with pulmonary arterial hypertension accounting for the right hilar opacity described on comparison chest radiograph. 4. No suspicious pulmonary lesions. ACT 112: Negative or not required by law. Electronically signed by: Grzegorz Servin M.D. 03/09/2024 10:18 AM
--- NOTE | 2024-03-09 10:26 | Hospitalist Progress Note ---
Date of Service March 09, 2024 Assessment & Plan (1) Acute appendicitis: Plan: Status post appendectomy, defer to general surgery for management. (2) Hyperparathyroidism: Plan: May resume home regimen after discharge. (3) Abnormal finding on chest xray: Plan: Chest x-ray reviewed some subtle right-sided opacity which was further confirmed and reevaluated by CT of the chest, I reviewed the CT myself and read the report, I think that is probably an engorgement of pulmonary artery due to pulmonary hypertension, patient does have some obesity and so I think that is subclinical pulm hypertension., Even though she does not have any symptomatology of YECENIA, this can be simply obesity related hypoventilation. echocardiogram was also reviewed which showed ejection fraction of 65% with otherwise no regional wall motion abnormality. No further recommendation on incidental findings on chest x-ray. I do not believe that with reported as possible pneumonitis is clinically relevant. Plan No objection for discharge. Admission and Anticipated Discharge Date Admission Date: March 08, 2024 Subjective Patient was seen and examined, she is very pleasant, status post appendectomy. Does not complain of pain. Physical Exam Physical Exam: VITALS: Reviewed. WEIGHT/BMI reviewed. GEN: Healthy appearing, well-developed, NAD. CV: RRR, no m/r/g. LUNGS: CTAB, no w/r/c. ABD: Soft, NT/ND, NBS, no masses or organomegaly, status post appendectomy Results & Data Results & Data Vital Signs (Past 12 Hours) Vital Signs Temp Pulse Resp BP Pulse Ox O2 Del Method O2 Flow Rate 03/09/24 07:42 Nasal Cannula 2 03/09/24 07:20 95 Nasal Cannula 2 03/09/24 07:00 36.7 C 65 18 128/69 96 Room Air 03/09/24 05:09 96 Nasal Cannula 2 03/09/24 05:09 86 L Room Air 03/09/24 03:37 36.5 C 73 20 151/64 H 95 Nasal Cannula 2 03/08/24 23:10 36.8 C 94 H 18 155/71 H 93 Nasal Cannula 2 Diagnostic Findings Laboratory Results WBC 14.80 K/ul (4.8-10.8) H 03/09/24 07:11 RBC 3.56 M/uL (4.20-5.40) L 03/09/24 07:11 Hgb 10.1 g/dl (12.0-16.0) L 03/09/24 07:11 Hct 34.2 % (37.0-47.0) L 03/09/24 07:11 MCV 96.1 fL (80.0-100.0) 03/09/24 07:11 MCH 28.4 pg (25.0-34.0) 03/09/24 07:11 MCHC 29.5 g/dL (32.0-36.0) L 03/09/24 07:11 RDW Std Deviation 50.4 fL (36.4-46.3) H 03/09/24 07:11 RDW Coeff of Radha 14.2 % (11.5-14.5) 03/09/24 07:11 Plt Count 243 K/uL (130-400) 03/09/24 07:11 MPV 11.2 fL (9.4-12.4) 03/09/24 07:11 Immature Gran % (Auto) 0.4 % 03/09/24 07:11 Neut % (Auto) 88.8 % 03/09/24 07:11 Lymph % (Auto) 6.6 % 03/09/24 07:11 Stafford % (Auto) 4.1 % 03/09/24 07:11 Eos % (Auto) 0.0 % 03/09/24 07:11 Baso % (Auto) 0.1 % 03/09/24 07:11 Neut # (Auto) 13.15 K/uL (1.40-6.50) H 03/09/24 07:11 Lymph # (Auto) 0.97 K/uL (1.20-3.40) L 03/09/24 07:11 Stafford # (Auto) 0.61 K/uL (0.11-0.59) H 03/09/24 07:11 Eos # (Auto) 0.00 K/uL (0.00-0.50) 03/09/24 07:11 Baso # (Auto) 0.01 K/uL (0.00-0.20) 03/09/24 07:11 Immature Gran # (Auto) 0.06 K/uL (0.01-0.20) 03/09/24 07:11 Sodium 141 mmol/L (136-145) 03/09/24 07:11 Potassium 4.2 mmol/L (3.5-5.1) 03/09/24 07:11 Chloride 102 mmol/L (98-107) 03/09/24 07:11 Carbon Dioxide 34 mmol/L (21-32) H 03/09/24 07:11 Anion Gap 5 (3-11) 03/09/24 07:11 BUN 17 mg/dl (6-23) 03/09/24 07:11 Creatinine 0.77 mg/dl (0.6-1.2) 03/09/24 07:11 Est Cr Clr Drug Dosing 87.2 ml/min 03/09/24 07:11 eGFR 80.90 03/09/24 07:11 BUN/Creatinine Ratio 22.1 (10-20) H 03/09/24 07:11 Glucose 136 mg/dl (70-99(Fasting)) H 03/09/24 07:11 Estimat Average Glucose 123 mg/dl 03/09/24 07:11 Hemoglobin A1c 5.9 % (4.5-5.6) H 03/09/24 07:11 Calcium 8.2 mg/dl (8.6-10.3) L 03/09/24 07:11 Magnesium 1.9 mg/dl (1.7-2.4) 03/09/24 07:11 Total Bilirubin 0.4 mg/dl (0.2-1.0) 03/08/24 06:30 AST 15 U/L (13-39) 03/08/24 06:30 ALT 5 U/L (7-52) L 03/08/24 06:30 Alkaline Phosphatase 80 U/L (34-104) 03/08/24 06:30 Total Protein 7.2 gm/dl (6.0-8.3) 03/08/24 06:30 Albumin 3.9 gm/dl (3.4-5.0) 03/08/24 06:30 Globulin 3.3 gm/dl (2.5-4.0) 03/08/24 06:30 Albumin/Globulin Ratio 1.2 (0.9-2) 03/08/24 06:30 Lipase 16 U/L (11-82) 03/08/24 06:30 Urine Color Yellow 03/08/24 09:10 Urine Appearance Clear (Clear) 03/08/24 09:10 Urine pH 8.0 (4.5-7.5) H 03/08/24 09:10 Ur Specific Manquin 1.036 (1.000-1.030) H 03/08/24 09:10 Urine Protein Negative (Negative) 03/08/24 09:10 Urine Glucose (UA) Negative (Negative) 03/08/24 09:10 Urine Ketones Negative (Negative) 03/08/24 09:10 Urine Blood Trace (Negative) H 03/08/24 09:10 Urine Nitrite Negative (Negative) 03/08/24 09:10 Urine Bilirubin Negative (Negative) 03/08/24 09:10 Urine Urobilinogen Negative (Negative) 03/08/24 09:10 Ur Leukocyte Esterase 1+ (Negative) H 03/08/24 09:10 Urine WBC (Auto) 21-50 /hpf (0-5) H 03/08/24 09:10 Urine RBC (Auto) 3-5 /hpf (0-2) H 03/08/24 09:10 U Hyaline Cast (Auto) 0-2 /lpf (0-2) 03/08/24 09:10 U Epithel Cells (Auto) 0-2 /hpf (0-2) 03/08/24 09:10 Urine Bacteria (Auto) 4+ (None Seen) H 03/08/24 09:10 Impressions Abdomen/Pelvis CT 03/08/24 06:[address] WITH IV CONTRAST CT DOSE: 1479.25 mGy.cm HISTORY: Acute right flank pain right flank pain TECHNIQUE: Multiaxial CT images of the abdomen and pelvis were performed following the IV administration of 94 cc of Optiray, A dose lowering technique was utilized adhering to the principles of ALARA. COMPARISON STUDY: Renal ultrasound of same day, CT abdomen 03/08/2023 FINDINGS: Cardiomegaly with coronary artery calcifications. Mild bibasilar atelectasis versus scarring. No pneumatosis or pneumoperitoneum. Unchanged indeterminate 1.4 cm splenic lesion. Unremarkable pancreas and adrenal glands. Stable hepatic cysts. Patency of the hepatic and portal veins. Cholecystectomy. Bilateral complex and simple renal cysts redemonstrated. Complex cystic lesion within the posterior interpolar left kidney on image 135 measuring 11 mm is similar to prior report measured 10 mm and contains subcentimeter calcifications. Nonobstructing 3 mm calculus of the inferior pole left kidney. Calculus interpolar right kidney measure up to 4 mm. No ureteral calculi or hydronephrosis. Unremarkable urinary bladder. Hysterectomy. No abdominal aortic aneurysm. Small hiatal hernia. Jeevan-en-Y gastric bypass. No bowel obstruction. The appendix is dilated and fluid-filled measuring up to 1.5 cm. Moderate adjacent inflammatory stranding without abscess. Ventral abdominal wall herniorrhaphy. No acute fracture. IMPRESSION: 1. Acute uncomplicated appendicitis. 2. No bowel obstruction, pneumoperitoneum or abscess. 3. Nonobstructing bilateral nephrolithiasis. 4. 11 mm complex cystic lesion of left kidney is similar to prior, previously described as suspicious for renal cell carcinoma. ACT 112: Negative or not required by law. The above report was generated using voice recognition software. It may contain grammatical, syntax or spelling errors. Electronically signed by: Grzegorz Servin M.D. 03/08/2024 10:54 AM Chest X-Ray 03/08/24 06:55 EXAM: XR chest 1V portable CLINICAL HISTORY: VOMITING TGB TECHNIQUE: X-ray image of the chest is obtained in AP projection. COMPARISON: Prior study dated 03/29/2023. FINDINGS: Pulmonary Parenchyma: Right hilar fairly defined radioopacity measuring 27 x 27mm compared to 20 x 25mm in a prior study advised clinical correlation and CT assessment if clinically warranted. Bilateral prominent hyun seen. No evidence of pleural effusion or pleural thickening. Heart and Mediastinum: Apparent cardiomegaly. No mediastinal widening or masses. No hilar or mediastinal lymphadenopathy. Bony Thorax: Thoracic spondylosis in the form of sclerosed end plates and osteophytosis. Soft Tissues: Soft tissues overlying the chest wall are unremarkable. IMPRESSION: 1. Right hilar fairly defined radioopacity measuring 27 x 27mm compared to 20 x 25mm in a prior study advised clinical correlation and CT assessment if clinically warranted. 2. Bilateral prominent hyun seen. 3. Apparent cardiomegaly. DISCLAIMER:A subtle bone abnormality or fracture may not be readily apparent on x-rays, thus clinical correlation and further imaging including follow up CT, MRI, or follow up x-rays are advised as needed. Electronically signed by Angelique Nieto 03-08-2024 08:[address] 03/09/24 08:00 CT chest diagnostic wo con CT DOSE: 781.91 mGy.cm CLINICAL HISTORY: 73 years-old Female with Eval hilar opacity. Acute nausea and vomiting with asymmetric right hilar opacity seen on comparison chest radiograph TECHNIQUE: Multiaxial CT images of the chest were performed without contrast. A dose lowering technique was utilized adhering to the principles of ALARA. COMPARISON: Chest radiograph 03/08/2024, CT abdomen 03/08/2023 FINDINGS: Thyroid goiter. No lymphadenopathy. Mild cardiomegaly with extensive coronary artery calcifications. No thoracic aortic aneurysm. Dilated main pulmonary artery measures up to 3.7 cm. No pneumothorax, pleural effusion or overt pulmonary edema. Linear subsegmental areas of bibasilar prominent atelectasis versus scarring. 3 mm fissural nodule the super segment right lower lobe on image 92 suggests a benign lymph node. Mild scattered ill-defined groundglass nodular foci are seen within the left greater than right upper lobes. Central airways are patent. Postoperative changes of the stomach. Hepatic cysts redemonstrated. Unremarkable soft tissues. No acute fracture. IMPRESSION: 1. Mild subtle groundglass densities in the upper lobes suggestive of an infectious or inflammatory pneumonitis. 2. No lymphadenopathy, pleural effusion or lobar airspace consolidation. 3. Cardiomegaly with pulmonary arterial hypertension accounting for the right hilar opacity described on comparison chest radiograph. 4. No suspicious pulmonary lesions. ACT 112: Negative or not required by law. Electronically signed by: Grzegorz Servin M.D. 03/09/2024 10:18 AM (1) Acute appendicitis Acute appendicitis type: unspecified acute appendicitis type Qualified Code(s): K35.80 - Unspecified acute appendicitis
[2024-03-09] MEDS: cefTRIAXone SODIUM 2,000 MG/50 ML BAG IV SCH (10:39)
[2024-03-09 12:06] VITALS: BP 152/56; TEMP 98.2
[2024-03-09 13:26] LABS: D Dimer 1340 ug/L FEU (0-500)
[2024-03-09 14:31] VITALS: PULSE 77; RESP 18; O2SAT 86
[2024-03-09] MEDS: OPTIRAY 320 125ml IV ONE (14:59)
--- NOTE | 2024-03-09 15:10 | CT Scan Report ---
CT ANGIOGRAPHY OF THE CHEST, PULMONARY EMBOLUS PROTOCOL CLINICAL HISTORY: Shortness of breath. Evaluate for pulmonary embolus. COMPARISON STUDY: Chest CT performed earlier today. Chest radiograph March 08, 2024. TECHNIQUE: Following IV administration of 120 mL of Optiray, helical axial images of the chest were o btained utilizing the pulmonary embolus protocol. Maximal intensity projections and sagittal and cor onal reformats were viewed on an independent 3D workstation. IV contrast was administered without co mplication. Automated exposure control was utilized for the study. A dose lowering technique was ut ilized adhering to the principles of ALARA. CT DOSE: 826.06 mGy.cm FINDINGS: No pulmonary emboli are identified although segmental and subsegmental vessels are subopti jemma assessed on this exam. There is no thoracic aortic dissection. The heart is moderately enlarged . Moderate coronary artery calcification is present. There is a small hiatal hernia. There are postop erative findings within the stomach. No pneumothorax or pleural effusion is present. There is mild di latation of the central pulmonary arteries. Subpleural opacities represent atelectasis. There are als o mild groundglass opacities, predominantly within the upper lobes. Several hepatic cysts are inciden tally noted. There is trace pneumoperitoneum, likely postsurgical IMPRESSION: 1. No pulmonary emboli identified although segmental and subsegmental pulmonary arteries suboptimally assessed. 2. Mild groundglass opacities, similar to prior chest CT. These favor an infectious or inflammatory p neumonitis. 3. Moderate cardiomegaly and coronary artery calcification. ACT 112: Negative or not required by law. Electronically signed by: Aquiles Wong M.D. 03/09/2024 3:08 PM
--- OUTSIDE RECORDS SUMMARY | 2024-03-10 14:45 | External Medical Summary | Summary of Care ---
Author Name Unknown Organization [facility] Address [address] [facility] [place] [address] Phone [phone] Care Team Providers Care Policy Cancellation Clerk Name Role Phone Steve Machado MD Primary Care Provider [phone] Reason for Visit * Reason Comments Follow Up Patient is here toda y for a routine follow up. Patient states she is having a lot of aches all over her body. Patient states she would like to discuss osteoporosis and if this could be causing some issues, such as needing a knee replacement. Patient would like to receive a BP injection today. Encounter Details Date Type Department Care Team (Late st Contact Info) Description 03/06/2024 1:40 PM EST Office Visit Located Within [facility] Kevan Mchugh [address] [place] [phone] Steve Machado MD [address] [place] [id number] Primary osteoarthritis of right knee*; B12 deficiency; Hyperparathyroidism, primary (HCC) Allergies Active Allergy Reactions Criticality Noted Date Comments Adhesive Tape 11/20/2003 bandaids Bee Venom 08/24/2006 Local reaction Dust 12/25/2004 documented as of this encounter (statuses as of 03/06/2024) Medications VITAMIN B-12 1000 MCG/ML IJ SOLN once every 3 months Active MELATONIN 5 MG PO CAPSIndications:S leep disorder 1 at bedtime 30 Cap 11 2 Active Albuterol Sulfate HFA 108 (90 Base) MCG/ACT Inhalation Aerosol SolutionIndicatio ns:H/O extrinsic asthma Inhale 2 Puffs by mouth every 4 hours as needed for Wheezing. -DrSolic 1 Inhaler 9 Active Acetaminophen ER 650 MG Oral Tablet Extended Release Take 1 Tablet by mouth every 8 hours as needed for Pain, Moderate. Active Fluticasone Propionate 50 MCG/ACT Nasal Suspension (Flonase)Indicati ons:Vasomotor rhinitis Use 2 spray(s) in each nostril once daily 54 g 3 2 Active Magnesium Citrate 100 MG Oral Tablet Take 100 mg by mouth every 6 hours. Active Vitamin D3 50 MCG (2000 UT) Oral Capsule Take 2 Capsules by mouth in the morning. Active Fluticasone-Salme terol 232-14 MCG/ACT Aerosol Powder Breath Activated Inhale 1 puff by mouth twice daily 180 Each 1 3 Active Calcium Citrate-Vitamin D3 315-6.25 MG-MCG Oral Tablet (Citracal Maximum) 1 tab twice daily 90 Tablet 3 3 Active Gabapentin 300 MG Oral Capsule (Neurontin) Take 1 capsule by mouth once daily at bedtime 90 Capsule 3 3 Active metroNIDAZOLE 0.75 % External Cream (Metrocream) APPLY CREAM TOPICALLY TO AFFECTED AREA ON FACE TWICE DAILY 45 g 3 4 Active traZODone HCl 50 MG Oral Tablet (Desyrel)Indicati ons:Sleep disorder TAKE 1 TABLET BY MOUTH AT BEDTIME FOR SLEEP 90 Tablet 3 4 Active Citalopram Hydrobromide 40 MG Oral Tablet (CeleXA)Indicatio ns:Chronic depression TAKE 1 TABLET BY MOUTH IN THE MORNING 90 Tablet 3 4 Active Meloxicam 7.5 MG Oral Tablet (Mobic)Indication s:High ankle sprain, right, initial encounter Take 1 Tablet by mouth in the morning. for pain.. 30 Tablet 4 Active Calcitriol 0.25 MCG Oral Capsule (Rocaltrol) Take 1 Capsule by mouth in the morning. 90 Capsule 3 4 Active Hospital, Clinic, or Other Facility Administered Medication Ordered Dose Route Frequency Start Date End Date Status Vitamin B-12 (Cyanocobalamin) inj 1,000 mcgIndications:Low serum vitamin B12 1000 mcg IM [id number] 01/11/2024 12/12/2024 Active documented as of this encounter (statuses as of 03/06/2024) Active Problems Problem Noted Date Diagnosed Date Hyperparathyroidism, primary 03/06/2024 Body mass index (BMI) of 45.0 to 49.9 in adult 0 08/31/2023 Body mass index (BMI) of 50.0 to 59.9 in adult 0 11/15/2022 Overview: Per Obesity protocol - Per Obesity protocol - Per Obesity protocol - Per Obesity Taxonomy ICD-10 update of inactive term Age-related osteoporosis wit hout current pathological fracture 06/15/2022 EDGAR (generalized anxiety disorder) 06/08/2022 Morbid (severe) obesity due to excess calories 0 05/16/2019 Major depressive disorder, recurrent, unspecifie d 05/16/2019 B12 deficiency 08/03/2016 Dyslipidemia, goal LDL below 100 08/04/2015 H/O gastric bypass 07/22/2014 Vitamin D deficiency 11/05/2011 Sleep disorder 05/07/2011 Calculus of kidney 04/17/2007 Bariatric surgery status 01/09/2007 ABDOMINAL PANNICULITIS 11/24/2006 INTEST POSTOP NONABSORB 06/09/2004 FLEMING RESEARCH OTHER*[id number] 05/19/2004 Chronic depression 02/20/2003 Other seborrheic keratosis 03/27/2002 intradermal nevus,rt supraclavicular & neck 04/2403/27/2002 skin tags 03/27/2002 Other allergic rhinitis Overview (01/25/2017): ICD-10 update of inactive term Rosacea documented as of this encounter (statuses as of 03/06/2024) Resolved Problems Problem Noted Date Diagnosed Date Resolved Date Body mass index (BMI) of 45. 0 to 49.9 in adult 07/13/2021 11/18/2022 Overview: Per Obesity protocol - Per Obesity protocol - Per Obesity Taxonomy ICD-10 update of inactive term Body mass index (BMI) of 50. 0 to 59.9 in adult 12/15/2020 07/16/2021 Overview: Per Obesity protocol - Per Obesity Taxonomy ICD-10 update of inactive term Body mass index (BMI) of 45. 0 to 49.9 in adult 07/10/2018 12/18/2020 Overview: Per Obesity protocol #1 - Per Obesity Taxonomy ICD-10 update of inactive term Body mass index (BMI) of 50. 0 to 59.9 in adult 05/15/2018 07/12/2018 Overview: Per Obesity protocol #1 - Per Obesity Taxonomy ICD-10 update of inactive term Obesity, morbid (more than 1 00 lbs over ideal weight or BMI > 40) 07/01/2009 05/18/2018 Overview (06/23/2015): Per Obesity Taxonomy ICD-10 update of inactive term ADVANCE DIRECTIVE INFORMATION 11/09/2007 02/06/2024 Overview (11/09/2007): No, Advance Directive brochure offered , patient declined. Examination following surgery 03/03/2007 02/21/2017 ABDOMINAL PAIN, OTHER SPECIFIED SITE 10/13/2002 11/14/2018 ACUTE CYSTITIS 10/13/2002 05/30/2008 Overview (05/30/2008): Resolved per Benign Acute Dxs Protocol #3 OBESITY, UNSPECIFIED 010 Overview (07/01/2009): Per Obesity Taxonomy BACKACHE NOS 11/14/2018 Sleep apnea 08/25/2022 documented as of this encounter (statuses as of 03/06/2024) Immunizations Name Administration Dates Next Due COVID-19 mRNA, LNP-s, No Pre serve, 2-Dose Series (R[place] [employer] Concursos) 04/23/2021,05/29/2020,05/08/2020 Covid-19, Mrna, Lnp-s, Pf, B ivalent, 30 Mcg, IM, 12 yrs and above (Pfizer) 04/13/2022 H1N1 2009 Influenza, IM 04/28/2009 Influenza, Whole Virus 01/21/1999 Pneumococcal Conjugate Vacc, 13 Valent (Prevnar) 07/31/2014 Pneumococcal Polysaccharide PPV23 (Pneumovax) 02/04/2016,02/02/1995 Season Influenza, Quad, PF, Adjuvanted, 65+ Yrs, IM (FLUAD) 12/17/2019 Seasonal Influenza Vac., MDV , IM, 0.5 mL (Fluzone) 12/07/2013,01/02/2013,12/13/2011,01/02,01/07/2010,01/13/2009,01/17/20 08,02/08/2007,02/02/2006,02/20/2003,1 ,03/07/2001,03/16/2000 12/07/2014 Seasonal Influenza Virus Vac cine, Unspecified Formulation 01/16/1998 Seasonal Influenza, High Dos e, Trivalent, PF, IM (Fluzone HD) 01/11/2024 Seasonal Influenza, PF, 6 M & above, IM , (FluLaval or Fluzone) 01/10/2018,02/03/2017 Seasonal Influenza, Quadriva lent Hd (Fluzone Hd) 12/03/2022,12/18/2021 Seasonal Influenza, Quadriva lent Hd, 65+ Yrs 01/06/2021 Seasonal Influenza, Quadriva lent, No Preserve, IM 02/04/2016,12/26/2014 Seasonal Influenza, Trivalen t, Adjuvanted, 65+ YRS, PF, (Fluad) 01/12/2019 TDAP (age 10 and older)(Boostrix) 11/17/2018 TDAP, Age 7 and older, IM (Adacel) 04/28/2009 Varicella Zoster Vaccine (Adult) 05/12/2011 Zoster Vaccine Recombinant (Shingrix) 05/13/2018 ,12/27/2017 documented as of this encounter Social History Tobacco Use Types Packs/Day Years Used Date Smoking Tobacco: Never Passive Smoke Exposure: Past Smokeless Tobacco: Never Comments: smoked 'for years'. Alcohol Use Standard Drinks/Week Comments Yes 0 (1 standard drink = 0.6 oz pur e alcohol) very rare PHQ-2 Answer Date Recorded PHQ Adult Total Score 0 05/13/2023 Hunger Vital Sign Answer Date Recorded Within the past 12 months, y ou worried that your food would run out before you got the money to buy more. Never true 03/02/20 24 Within the past 12 months, t he food you bought just didn't last and you didn't have money to get more. Never true 03/02/2024 Childcare Answer Date Recorded Do you feel overwhelmed with taking care of a child, family member or friend? No 03/02/2024 Does your family need help f inding childcare? (Household - for ages 0-17 years) Not on file 03/02/2024 Clothing Answer Date Recorded Have you been unable to get clothing when it was really needed? No 03/02/2024 Is your family able to get c lothes or diapers when needed? (Household - for ages 0-17 years) Not on file 03/02/2024 Personal Safety Answer Date Recorded Do you feel unsafe or have concerns for your saf ety? No 03/02/2024 Do you have concerns for you r family's safety? (Household - for ages 0-17 years) Not on file 03/02/2024 Utilities Answer Date Recorded Do you have trouble paying y our heating, water, or electric bill? No 03/02/2024 Is your family able to pay t he heat, water, or electric bill? (Household - for ages 0-17 years) Not on file 03/02/2024 Does your family have access to good internet? (Household - for ages 0-17 years) Not on file 03/02/2024 Employment Status Answer Date Recorded Are you unemployed or without regular income? No 03/02/2024 Does the household have a re gular source of income? (Household - for ages 0-17 years) Not on file 03/02/2024 Social Connections Answer Date Recorded How often do you feel lonely or isolated from th ose around you? Rarely 03/02/2024 Financial Resource Strain Answer Date R ecorded Do you have any trouble payi ng for your medications, or do you think you might in the future? No 03/02/2024 Does your family have troubl e paying for medicine? (Household - for ages 0-17 years) Not on file 03/02/2024 Transportation Needs Answer Date Record ed Do you have trouble getting a ride to medical visits or work? (Adult - for ages 18 years and over) Not on file 03/02/2024 Does your family have a hard time getting a ride to doctors visits? (Household - for ages 0-17 years) Not on file 03/02/2024 Has lack of transportation k ept you from medical appointments, meetings, work, or from getting things needed for daily living? Check all that apply. No 03/02/2024 Do you (or your family) have trouble finding or paying for a ride (transportation)? (Household - for ages 0-17 years) Not on file 03/02/2024 Housing Stability Answer Date Recorded Do you currently live in a s helter or have no steady place to sleep at night? No 03/02/2024 Do you think you are at risk of becoming homeless? (Adult - for ages 18 years and over) Not on file 03/02/2024 Does your family worry about paying for your home or becoming homeless? (Household - for ages 0-17 years) Not on file 1 05/02/2023 Are you homeless or worried that you might be in the future? No 03/02/2024 Are you (or your family) rui eless or worried that you might be in the future? (Household - for ages 0-17 years) Not on file Food Insecurity Answer Date Recorded Do you need food for this week? No 03/02/2024 Are you able to get enough f ood for your family? (Household - for ages 0-17 years) Not on file 03/02/2024 Does your family need food t his week? (Household - for ages 0-17 years) Not on file 03/02/2024 Do you always have enough fo od for your family? (Household - for ages 0-17 years) Not on file 03/02/2024 Comments No Sex and Gender Information Value Date Recorded Sex Assigned at Female 07/20/2018 1:50 PM EDT Legal Sex Female 6:03 AM EST Gender Identity Female 07/20/2018 1:50 PM EDT Sexual Orientation Straight 07/20/2018 1: 50 PM EDT Occupation Industry Job Start Date Job End Date director of business development, [employer] Not on file Not on file Not on file documented as of this encounter Last Filed Vital Signs Vital Sign Reading Time Taken Comments Blood Pressure 119/76 03/06/2024 1:42 PM EST Pulse 78 03/06/2024 1:42 PM EST Temperature 36.7 C (98.1 F) 03/06/2024 1:42 PM ES T Respiratory Rate 16 03/06/2024 1:42 PM EST Oxygen Saturation 94% 03/06/2024 1:42 PM EST Inhaled Oxygen Concentration - - Weight 134.8 kg (297 lb 1.6 oz) 03/06/2024 1:42 PM EST Height 163.8 cm (5' 4.5") 03/06/2024 1:42 PM EST Body Mass Index 50.21 03/06/2024 1:42 PM EST documented in this encounter Progress Notes * Janiya Coyle LPN - 03/06/2024 2:47 PM EST Pre-Administration Time Out Procedure Performed: Yes Patient Identified (Ask Name/Date of ): Yes Does the patient have a fever greater than 101 degrees today? No Patient allergic to latex? No Has the patient ever fainted after receiving an injection? No VFC Stock: No Injection(s) verified: Yes, Injection Name: B-12 Verified Side and Site: Yes Verified Shot(s) with Parent(s)/Patient: Yes * Steve Machado MD - 03/06/2024 1:58 PM EST Subjective: Marbella Worrell is a 73 year old female. Chief Complaint Patient presents with Follow Up Patient is here today for a routine follow up. Patient states she is having a lot of aches all over her body. Patient states she would like to discuss osteoporosis and if this could be causing some issues, such as needing a knee replacement. Patient would like to receive a BP injection today. HPI: 73-year-old seen today for routine six-month recheck. Past medical history that includes hyperparathyroid which is followed at [facility]. She is scheduled for blood work for Endocrinology in April 23, 2024. She is concerned having osteoporosis that that is causing her some diffuse paroxysmal pain. She knows that she has end-stage osteoarthritis of the knees but she was getting pains in a variety locations including over the dorsal aspect of the right foot and right elbow and in in thigh pain. She thought that these pains maybe related to her osteoporosis. She also is concerned that because of the osteoporosis she would not do as well with knee joint replacement. She has already had full set of intra-articular knee injections including Synvisc. Also has history of gastric bypass. She does get every three-month B12 injections. She reports some tremor in the right upper extremity in the head. She is concerned about Parkinson's as her brother had advanced Parkinson's before he . Patient Active Problem List Diagnosis Other seborrheic keratosis intradermal nevus,rt supraclavicular & neck 04/24/99 skin tags Chronic depression INTEST POSTOP NONABSORB Other allergic rhinitis Rosacea ABDOMINAL PANNICULITIS Bariatric surgery status Calculus of kidney FLEMING RESEARCH OTHER*[id number] Sleep disorder Vitamin D deficiency H/O gastric bypass Dyslipidemia, goal LDL below 100 B12 deficiency Morbid (severe) obesity due to excess calories (HCC) Major depressive disorder, recurrent, unspecified (HCC) EDGAR (generalized anxiety disorder) Age-related osteoporosis without current pathological fracture Body mass index (BMI) of 50.0 to 59.9 in adult ([facility]) Body mass index (BMI) of 45.0 to 49.9 in adult (HCC) Current Outpatient Medications Medication Sig Dispense Refill MELATONIN 5 MG PO CAPS 1 at bedtime 30 Cap 11 Albuterol Sulfate HFA 108 (90 Base) MCG/ACT Inhalation Aerosol Solution Inhale 2 Puffs by mouth every 4 hours as needed for Wheezing. -DrSolic 1 Inhaler 0 Acetaminophen ER 650 MG Oral Tablet Extended Release Take 1 Tablet by mouth every 8 hours as neededfor Pain, Moderate. Fluticasone Propionate 50 MCG/ACT Nasal Suspension (Flonase) Use 2 spray(s) in each nostril once daily 54 g 3 Magnesium Citrate 100 MG Oral Tablet Take 100 mg by mouth every 6 hours. Vitamin D3 50 MCG (2000 UT) Oral Capsule Take 2 Capsules by mouth in the morning. Fluticasone-Salmeterol 232-14 MCG/ACT Aerosol Powder Breath Activated Inhale 1 puff by mouth twice daily 180 Each 1 Calcium Citrate-Vitamin D3 315-6.25 MG-MCG Oral Tablet (Citracal Maximum) 1 tab twice daily 90 Tablet 3 Gabapentin 300 MG Oral Capsule (Neurontin) Take 1 capsule by mouth once daily at bedtime 90 Capsule3 metroNIDAZOLE 0.75 % External Cream (Metrocream) APPLY CREAM TOPICALLY TO AFFECTED AREA ON FACE TWICE DAILY 45 g 3 traZODone HCl 50 MG Oral Tablet (Desyrel) TAKE 1 TABLET BY MOUTH AT BEDTIME FOR SLEEP 90 Tablet 3 Citalopram Hydrobromide 40 MG Oral Tablet (CeleXA) TAKE 1 TABLET BY MOUTH IN THE MORNING 90 Tablet 3 Meloxicam 7.5 MG Oral Tablet (Mobic) Take 1 Tablet by mouth in the morning. for pain.. 30 Tablet 0 Calcitriol 0.25 MCG Oral Capsule (Rocaltrol) Take 1 Capsule by mouth in the morning. 90 Capsule 3 VITAMIN B-12 1000 MCG/ML IJ SOLN once every 3 months Current Facility-Administered Medications Medication Dose Route Frequency Provider Last Rate Last Admin Vitamin B-12 (Cyanocobalamin) inj 1,000 mcg 1,000 mcg Intramuscular Q4 Weeks 1,000 mcg at 01/11/24 1040 Review of patient's allergies indicates: Allergen Reactions Adhesive Tape bandaids Bee Venom Local reaction Dust Objective: BP 119/76 (BP Site: Left Arm, BP Position: Sitting, BP Cuff Size: Large) | Pulse 78 | Temp 98.1 F(36.7 C) (Tympanic) | Resp 16 | Ht 5' 4.5" (1.638 m) | Wt 297 lb 1.6 oz (134.8 kg) | SpO2 94% | BMI 50.21 kg/m | BSA 2.48 m Physical Exam: CONST: alert, pleasant, no acute distress HEAD: normocephalic, atraumatic NECK: supple, soft, no adenopathy EARS: canals normal, TMs normal NARES: clear Eyes - PERRLA, EOM'I OROPHARYNX: clear, no swelling or erythema, moist CV: regular rate and rhythm, no murmur CHEST: clear to auscultation bilaterally, no rales or wheezing ABD: soft, non tender, non distended, no masses or hepatosplenomegaly EXT: no edema, no joint swelling or deformities, NEURO: A very slight head bobbing tremor she does not have a resting tremor that I appreciated in either the upper extremities. MENTAL STATUS: no evidence of thought disorder, no delusional thought, no evidence of paranoia, thought is non-tangential. SKIN: no rash or significant lesions ASSESSMENT/PLAN: 1. Osteoarthritis diffuse but Um end-stage knees. I think she would be a good candidate for knee replacement. I told her of the osteoporosis would not preclude knee replacement. She is going to schedule with Dr. Gan. 2. Tremor-most consistent with a benign essential tremor-I did not recommend we do anything. She ismade aware that there is medicine if it becomes bothersome. 3. Hyperparathyroidism-should be noted that her last parathyroid hormone was normal in her calcium levels have been normal for awhile. Continue follow with endocrine 4. History of renal calculi-she is having a CT scan of the abdomen and pelvis as ordered by Dr. Freitas with [facility] looking for any new or retained stones. 5. Osteoarthritis -as noted above, she is going to work towards knee replacement surgery 6. Routine health maintenance- she does not knee routine colonoscopy for another 3 and half years and nearly year before next mammogram. I am going to plan to see her again in a year but I am glad to see her sooner if needed. She will need blood work though in about 6 months' time. I did not order that blood work today because she hasstanding blood work ordered to endocrine afraid that any orders I would place would be done early.She will remind me in about [address] blood work orders which should include a B12 level as well as comprehensive metabolic panel and lipid panel. Steve Machado MD documented in this encounter Nursing Notes * Janiya Coyle LPN - 03/06/2024 1:50 PM EST The patient has been properly identified by confirmation of name and date of . Chief Complaint Patient presents with Follow Up Patient is here today for a routine follow up. Patient states she is having a lot of aches all over her body. Patient states she would like to discuss osteoporosis and if this could be causing some issues, such as needing a knee replacement. Patient would like to receive a BP injection today. documented in this encounter Plan of Treatment Upcoming Encounters Date Type Department Care Team (Late st Contact Info) Description 05/07/2024 1:30 PM EST [address] [address] 05/17/2024 10:00 AM EST Nurse Only Ancillary Department, Marixa Hermosillo [address] [facility] [place] [address] [place] [phone] Marixa, Nurse Annual Wellness [address] [place] [address] 01/11/2025 1:00 PM EDT Imaging Radiology [address] [place] [address] 03/11/2025 12:20 PM EST [facility] [place] [address] [facility] [address] [phone] Steve Machado MD [address] [facility] [address] [address] [id number] Scheduled Procedures Name Priority Associated Diagnoses Date/Ti me COLONOSCOPY FLEXIBLE PROXIMAL DIAGNOSTIC Recall History of colon polyps Health Maintenance Due Date Last Done Comments Cologuard 1994 Fecal Occult Blood Test 1994 Sigmoidoscopy 02/09/2006 02/09/2001 COVID-19 Vaccine ( season) 2023 04/13/2022, 04/23/2021, 04/23/2021, Additional history exists DXA Scan 04/21/2024 04/21/2022, 04/04, 11/13/2019, Additional history exists Adult Wellness Visit 05/13/2024 05/13/2023, 05/12/2022, 05/11/2021 Depression Monitoring 05/13/2024 05/13/2023 Mammogram 01/09/2025 01/10/2024, 1007/2022, 01/05/2023, Additional history exists Colonoscopy 07/22/2027 07/21/2022, 10/2012, 12/08/2006 Colorectal Cancer Screening 07/22/2027 Lipid Panel 09/29/2028 09/30/2023, 10/02, 10/20/2020, Additional history exists DTap/Tdap Vaccines (3 - Td or Tdap) 11/17/2028 11/17/2018, 04/28/2009 Pneumococcal Vaccine: 65+ Years Completed 02/04/2016, 07/31/2014, 02/02/1995 Zoster Vaccines Completed 05/13/2018, 12/04, 05/12/2011 RETIRED - COLONOSCOPY-EVERY 5 YRS AGES 18-100 Discontinued 07/21/2022, 04/10/2012, 12/08/2006, Additional history exists VITAMIN D LEVEL ONCE IN A LIFETIME-USE SMARTSET# [id number] Completed 10/21/2023, 04/19/2023, 10/11/2022, Additional history exists Influenza Vaccine (FLU shot) Completed 01/11/2024, 12/03/2022, 12/18/2021, Additional history exists HPV (Gardasil) Vaccine Aged Out No lo nger eligible based on patient's age to complete this topic Hepatitis B Vaccine Aged Out No longe r eligible based on patient's age to complete this topic MENINGOCOCCAL (MENACTRA/MENVEO) Aged Out No longer eligible based on patient's age to complete this topic documented as of this encounter Medical Devices Implanted Type Area Insole Rasper Device Identifier Shelf Expiration Date Model / Serial / Lot Mesh Com[employer]ix [id number] [id number] - [id number] Implanted:Qty: 1 on 03/02/2007 [place] [facility] [place] Abdomen INACTIVE [employer] 08/03/2011 [id number] / / [id number] Lens Intraoc 18.5 - [id number] - [id number] Implanted:Qty: 1 on 07/08/2020 by Jonny Siddiqui MD at [facility] Left: Eye [employer]USCH [employer] LOMB 02/01/2025 [id number] / [id number] / [id number] Lens Intraoc 17.0 - [id number] - [id number] Implanted:Qty: 1 on 07/22/2020 by Jonny Siddiqui MD at OR [facility] Right: Eye [employer]USCH [employer] LOMB 02/01/2025 [id number] / [id number] / [id number] documented as of this encounter Visit Diagnoses Diagnosis Primary osteoarthritis of right knee- Primary Primary localized osteoarthrosis, lower leg B12 deficiency Other B-complex deficiencies Hyperparathyroidism, primary (HCC) Primary hyperparathyroidism documented in this encounter Administered Medications Active Administered Medications - up to 3 most recent administrations Medication Order MAR Action Action Date Dose Rate Site Vitamin B-12 (Cyanocobalamin) inj 1,000 mcg 1,000 mcg, Intramuscular, [id number], First dose on Tue01/11/24 at 1115, Last dose on Tue11/14/24 at 1115, For 12 dosesIndications:Low serum vitamin B12 Given 03/06/2024 2:45 PM EST 1,000 mcg Deltoid Right Upper Given 01/11/2024 10:40 AM EDT 1,000 mcg D eltoid Left Upper documented in this encounter Advance Directives * Full Code (Latest Code Status on File) Date Activated Date Inactivated Comments 03/02/2007 1:20 PM 03/03/2007 6:18 PM * Full Code Date Activated Date Inactivated Comments 03/02/2007 9:41 AM 03/02/2007 1:20 PM Care Teams Policy Cancellation Clerk Relationship Specialty Start Date End Date Steve Machado MD [address] [place] [address] PCP - General 05/19/04 documented as of this encounter
--- OUTSIDE RECORDS SUMMARY | 2024-03-10 14:45 | External Medical Summary | Summary of Care ---
Author Name Unknown Organization [facility] Address [address] [place] [address] Phone [phone] Care Team Providers Care Scenario Writer Name Role Phone Steve Machado MD Primary Care Provider [phone] Reason for Visit * Reason Comments Follow [...] Description 03/06/2024 1:40 PM EST Office Visit [facility] Kevan Mchugh [address] [place] [phone] Steve Machado MD [address] [place] [address] Primary osteoarthritis of right knee*; B12 deficiency; [...] mcgIndications:Low serum vitamin B12 1000 mcg IM [id number] 01/11/2024 12/12/2024 Active documented as of this [...] 11/24/2006 INTEST POSTOP NONABSORB 06/09/2004 FLEMING RESEARCH OTHER*[id number] 05/19/2004 Chronic depression 02/20/2003 Other seborrheic keratosis [...] mRNA, LNP-s, No Pre serve, 2-Dose Series (WayConnected) 04/23/2021,05/29/2020,05/08/2020 Covid-19, Mrna, Lnp-s, Pf, B ivalent, [...] Industry 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 Not on file Not on [...] that includes hyperparathyroid which is followed at [place]. She is scheduled for blood work for [...] surgery status Calculus of kidney FLEMING RESEARCH OTHER*[id number] Sleep disorder Vitamin D deficiency H/O gastric bypass Dyslipidemia, goal LDL below 100 B12 deficiency Morbid (severe) obesity due to excess calories (HCC) Major depressive disorder, recurrent, unspecified (HCC) EDGAR (generalized anxiety disorder) Age-related osteoporosis without current pathological fracture Body mass index (BMI) of 50.0 to 59.9 in adult ([facility]) Body mass index (BMI) of 45.0 to [...] pelvis as ordered by Dr. Freitas with [facility] looking for any new or [...] Description 05/07/2024 1:30 PM EST [address] Radiology, [address] [address] 05/17/2024 10:00 AM EST Nurse Only Ancillary Department, Marixa Hermosillo [address] [facility] [place] [phone] Marixa, Nurse Annual Wellness [address] [place] [address] 01/11/2025 1:00 PM EDT Imaging Radiology [address] [place] [address] 03/11/2025 12:20 PM EST Office Visit [facility], [facility] [address] [address] [facility] [place] [phone] Steve Machado MD [address] [facility] [place] [address] Scheduled Procedures Name Priority Associated Diagnoses Date/Ti [...] D LEVEL ONCE IN A LIFETIME-USE SMARTSET# [id number] Completed 10/21/2023, 04/19/2023, 10/11/2022, Additional history exists [...] this encounter Medical Devices Implanted Type Area Driver Courier Device Identifier Shelf Expiration Date Model / Serial / Lot Mesh Composix 6x8 [id number] - [id number] Implanted:Qty: 1 on 03/02/2007 at OR [facility] N/A: Abdomen INACTIVE [employer] 08/03/2011 [id number] / / [id number] Lens Intraoc 18.5 - [id number] - [id number] Implanted:Qty: 1 on 07/08/2020 by Jonny Siddiqui MD at OR [facility] Left: Eye BAUSCH & LOMB 02/01/2025 [id number] / [id number] / [id number] Lens Intraoc 17.0 - [id number] - [id number] Implanted:Qty: 1 on 07/22/2020 by Jonny Siddiqui MD at OR [facility] Right: Eye BAUSCH & LOMB 02/01/2025 [id number] / [id number] / [id number] documented as of this encounter Visit Diagnoses Diagnosis Primary osteoarthritis of right knee- Primary Primary localized osteoarthrosis, lower leg B12 deficiency Other B-complex deficiencies Hyperparathyroidism, primary (HCC) Primary hyperparathyroidism documented in this encounter Administered Medications Active Administered Medications - up to 3 most recent administrations Medication Order MAR Action Action Date Dose Rate Site Vitamin B-12 (Cyanocobalamin) inj 1,000 mcg 1,000 mcg, Intramuscular, [id number], First dose on Tue01/11/24 at 1115, Last [...] 9:41 AM 03/02/2007 1:20 PM Care Teams Scenario Writer Relationship Specialty Start Date End Date Steve Machado MD [address] [place] [address] PCP - General 05/19/04 documented as of this encounter
--- OUTSIDE RECORDS SUMMARY | 2024-03-10 14:45 | External Medical Summary | Summary of Care ---
Author Name Unknown Organization [facility] Address [address] [address] [address] [place] [address] Phone [phone] Care Team Providers Care Catering Attendant Name Role Phone Steve Machado MD Primary Care Provider [phone] Reason for Visit * Reason Comments Follow [...] Description 03/06/2024 1:40 PM EST Office Visit [facility] Kevan Mchugh [address] [place] [phone] Steve Machado MD [address] [place] [address] Primary osteoarthritis of right knee*; B12 deficiency; [...] mcgIndications:Low serum vitamin B12 1000 mcg IM [id number] 01/11/2024 12/12/2024 Active documented as of this [...] 11/24/2006 INTEST POSTOP NONABSORB 06/09/2004 FLEMING RESEARCH OTHER*[id number] 05/19/2004 Chronic depression 02/20/2003 Other seborrheic keratosis [...] mRNA, LNP-s, No Pre serve, 2-Dose Series (OmniGuide) 04/23/2021,05/29/2020,05/08/2020 Covid-19, Mrna, Lnp-s, Pf, B ivalent, 30 Mcg, IM, 12 yrs and above (Pfizer) 04/13/2022 H1N1 2009 Influenza, IM 04/28/2009 Pneumococcal Conjugate Vacc, 13 Valent (Prevnar) 07/31/2014 Pneumococcal Polysaccharide PPV23 (Pneumovax) 02/04/2016 Season Influenza, Quad, PF, Adjuvanted, 65+ Yrs, IM (FLUAD) 12/17/2019 Seasonal Influenza Vac., MDV , IM, 0.5 mL (Fluzone) 12/07/2013,01/02/2013,12/13/2011,01/02,01/07/2010,01/13/2009,01/17/20 08,02/08/2007,02/02/2006 12/07/2014 Seasonal Influenza, High Dos e, Trivalent, PF, [...] Job Start Date Job End Date business performance manager, [employer]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 She is scheduled for blood work for [...] surgery status Calculus of kidney FLEMING RESEARCH OTHER*[id number] Sleep disorder Vitamin D deficiency H/O gastric bypass Dyslipidemia, goal LDL below 100 B12 deficiency Morbid (severe) obesity due to excess calories ([facility]) Major depressive disorder, recurrent, unspecified ([facility]) EDGAR (generalized anxiety disorder) Age-related osteoporosis without current pathological fracture Body mass index (BMI) of 50.0 to 59.9 in adult ([facility]) Body mass index (BMI) of 45.0 to 49.9 in adult ([facility]) Current Outpatient Medications Medication Sig Dispense Refill [...] 90 Capsule 3 VITAMIN B-12 1000 MCG/ML SOLN once every 3 months Current Facility-Administered [...] pelvis as ordered by Dr. Freitas with [facility] looking for any new or retained [...] orders I would place would be done early. She will remind me in about 6 months' [...] Description 05/07/2024 1:30 PM EST Imaging Radiology, [address] [place] [address] 05/17/2024 10:00 AM EST Nurse Only Ancillary Department, [address] [facility] [place] [phone] Marixa Nurse Annual Wellness [address] [facility] [place] [address] 01/11/2025 1:00 PM EDT Imaging Radiology [facility] [address] [facility] [place] [address] [facility] [place] [address] 03/11/2025 12:20 PM EST Office Visit [facility] [place] [facility] [address] [place] [phone] Steve Machado MD [address] [place] [address] Scheduled Procedures Name Priority Associated Diagnoses Date/Ti [...] Depression Monitoring 05/13/2024 05/13/2023 Mammogram 01/09/2025 01/10/2024, 07/2022, 01/05/2023, Additional history exists Colonoscopy 07/22/2027 07/21/2022, [...] D LEVEL ONCE IN A LIFETIME-USE SMARTSET# [id number] Completed 10/21/2023, 04/19/2023, 10/11/2022, Additional history exists [...] this encounter Medical Devices Implanted Type Area Bus Washer Device Identifier Shelf Expiration Date Model / Serial / Lot Mesh Composix 6x8 [id number] - [id number] Implanted:Qty: 1 on 03/02/2007 [place] [facility] [place]/A: Abdomen INACTIVE CR [employer] 08/03/2011 [id number] / / [id number] Lens Intraoc 18.5 - [id number] - [id number] Implanted:Qty: 1 on 07/08/2020 by Jonny Siddiqui MD at OR [facility] Left: Eye BAUSCH & LOMB 02/01/2025 [id number] / [id number] / [id number] Lens Intraoc 17.0 - [id number] - [id number] Implanted:Qty: 1 on 07/22/2020 by Jonny Siddiqui MD at OR [facility] Right: Eye BAUSCH & LOMB 02/01/2025 [id number] / [id number] / [id number] documented as of this encounter Visit Diagnoses Diagnosis Primary osteoarthritis of right knee- Primary Primary localized osteoarthrosis, lower leg B12 deficiency Other B-complex deficiencies Hyperparathyroidism, primary (HCC) Primary hyperparathyroidism documented in this encounter Advance Directives * Full Code (Latest Code Status on File) Date Activated Date Inactivated Comments 03/02/2007 1:20 PM 03/03/2007 6:18 PM * Full Code Date Activated Date Inactivated Comments 03/02/2007 9:41 AM 03/02/2007 1:20 PM Care Teams Catering Attendant Relationship Specialty Start Date End Date Steve Machado MD [address] [place] [address] PCP - General 05/19/04 documented as of this encounter
--- NOTE | 2024-03-14 07:41 | Discharge Summary ---
Date of Service March 09, 2024 Principal Diagnosis laparoscopic appendectomy Discharge Exam awake, alert, no distress Respiratory on supplemental nasal cannula Gastrointestinal (Abdomen) Inspection/Auscultation: + abdominal surgical incision (c/d/i); abdomen not distended Percussion/Palpation: abdomen soft Discharge Data Allergies Allergy/AdvReac Type Severity Reaction Status Date / Time adhesive Allergy Mild Red rash Verified 03/08/24 13:44 bee venom protein (honey bee) Allergy Mild Severe Verified 03/08/24 13:44 swelling, "heat" at bee sting site house dust Allergy Mild Sinusitis Verified 03/08/24 13:44 No Known Drug Allergies Allergy Unknown . Verified 03/08/24 13:44 Consultations 03/08/24 12:23 ED Decision to Admit Stat 03/08/24 17:58 Consult Hospitalist Routine Procedures Performed Operation Date: 03/08/24 12:30 Actual Procedures p Laparoscopic Appendectomy(Not Applicable) - Samuel Purdy, DO Ordered Studies 03/08/24 06:34 CT abd pelvis IV con only Stat 03/09/24 08:00 CT chest diagnostic wo con Routine 03/09/24 13:34 CT angio chest PE protocol Stat Hospital Course (1) Acute appendicitis: This is a 73yF who presented to the [facility] ED on 03/08 with abdominal pain. Workup in the ED showed a WBC of [address] a/p concerning for acute appendicitis. The patient was tender to palpation in the RLQ. Patient made NPO with IVF and booked for the OR. On 12 the patient went to the OR with Dr. Purdy for a laparoscopic appendectomy. The patient tolerated the procedure well, see operative report for full details. In the post op period patient had some desaturations requiring supplemental O2 and hypertension. Therefore medicine was consulted to assist with her care throughout her hospitalization. A CT chest was obtained x2 and had a pulmonary arterial hypertension & ruled out a pulmonary embolism. She was unable to come off of supplemental oxygen during her stay. Medicine attributed this to some obesity hypoventilation syndrome and YECENIA. Respiratory performed a 2-step and she ended up qualifying for home O2 which keycase assembler helped to coordinate. The patient was agreeable. It was also recommended the patient follow up with her PCP to order a sleep study to rule out YECENIA. On POD#1 the patient was ultimately deemed stable for discharge to home once workup was complete and care coordinated. From a surgical standpoint her pain was controlled, diet was tolerated, and incisions c/d/i. She was instructed to follow up in the office within 2 weeks. Total Time Total Time Spent Total Time Spent (In Minutes): 35 Discharge Plan Discharge Items Patient Disposition: Home - Self-Care Reason For Visit: S/P LAP APPWagner, HTN Discharge Diagnosis: acute appendicititis Condition on Discharge: Good Activity: Per Instructions section Lifting: No more than 10 pounds Bathing Comment: may shower; no soaking in tubs/pools x 2 weeks Exercise/Sports: Wait until after follow-up appointment Driving/Machine Use: no driving while taking narcotics for pain Non-emergency contact: Surgeon Call non-emergency contact if: you have any medication questions, your pain is not controlled, your pain is worsening, you have a fever, your temperature is above 101.5, your wound has increased redness, your wound has increased drainage and your wound pain has increased Follow-up/Referrals: Samuel Purdy DO [Surgeon] - (call office for follow up in 1-2weeks ) Steve Machado MD [Primary Care Provider] - (please call office and make an appointment to have your blood pressure checked as you were elevated during your visit ([phone]). ) Diet: Regular Addtl Attending Provider Instructions: SPECIAL CARE INSTRUCTIONS: * Dressing: You have surgical glue called dermabond on your surgical site i ncisions. You may shower with this on. This will tend to come off within a couple of weeks. Do not pick at it. * You may shower 03/09/24 . NO soaking in pools or baths for 2 weeks * No lifting greater than 10lbs. No exercise until cleared by surgeon. Light walking is accepted. * No driving while taking narcotic pain medication * No drinking alcohol while taking narcotic pain medication * May use Ibuprofen/Tylenol over the counter for pain as tolerated. Do not exceed 3grams of Tylenol per 24 hours * Expect some swelling and bruising. * Diet Regular Call your doctor if: * Temperature above 101 degrees, nausea/vomiting, fever/chills * Pain not relieved by pain medicine ordered * There is increased drainage or redness from any incision * You have any unanswered questions or concerns [phone]. FOLLOW UP VISIT: If not already scheduled, please call the office for a follow-up visit. Office You were unable to successfully come off of supplemental oxygen during your hospitalization. After workup in the hospital it was deemed necessary to send you home on continuous oxygen via nasal cannula at 2 Liters to prevent oxygen desaturations. It is also recommended that you follow up with your Primary Care Provider to rule out sleep apnea. We recommend you undergo a sleep study to formally diagnose you as you likely would benefit from wearing CPAP at night. Please follow up with your PCP regarding your blood pressure. It has been e levated during this visit. Please continue to follow with urology regarding your renal cyst. Pending Studies at Discharge: Yes Studies:: surgical pathology Stand-Alone Forms: My [facility], Important Visit Information Medications and DC Order Prescriptions: New oxycodone 5 mg tablet 5 - 10 mg PO .[id number] MDD no more than 6 tabs in 24hours PRN (Reason: pain) Qty: 15 0RF Continued albuterol sulfate 90 mcg/actuation HFA aerosol inhaler 2 puff inhalation Q6H PRN (Reason: shortness of breath or wheezing) Qty: 8.5 3RF metronidazole [MetroCream] 0.75 % Cream 1 applic TOPICAL BID PRN (Reason: Other) guaifenesin [Mucinex] 1,200 mg Tablet Extended Release 12hr 1,200 mg PO DAILY PRN (Reason: Congestion) diclofenac sodium [Voltaren Arthritis Pain] 1 % Gel 2 g TOPICAL TID PRN (Reason: Pain) cholecalciferol (vitamin D3) [Vitamin D3] 25 mcg (1,000 unit) tablet 2,000 unit PO HS cyanocobalamin (vitamin B-12) 1,000 mcg/mL kit 1,000 mcg IM .COMPLEX Rx Instructions: 1,000 mcg IM; every 3 months citalopram [Celexa] 40 mg tablet 40 mg PO HS fluticasone propionate [Flonase Allergy Relief] 50 mcg/actuation Omega,Suspension 2 spray INTRANASAL HS acetaminophen 650 mg Tablet Extended Release 650 mg PO Q12H PRN (Reason: Pain) melatonin 5 mg Tablet 5 mg PO HS PRN (Reason: Sleep) magnesium citrate 100 mg tablet 100 mg PO TID Arnuity Ellipta 50 mcg/actuation Blister With Device 50 mcg INHALATION BID trazodone 50 mg Tablet 50 mg PO HS gabapentin 300 mg Capsule 300 mg PO HS PRN (Reason: Other) calcitriol 0.25 mcg Capsule 0.25 mcg PO QAM naproxen 500 mg Tablet 500 mg PO BID PRN (Reason: Pain) Discharge Orders: Discharge Order (Routine); Ordered 03/09/24 Ordered By: Andree Bojorquez/Other Patient Handouts: Appendectomy Admission Data Admit Date/Time: 03/08/24 15:15 Attending Provider: Samuel Purdy Admit Provider: Samuel Purdy Primary Care Provider: Steve Machado Other Providers: Marvin Bertrand Other Interventions: Discharge Summary Assessment (RN) Last Done: 03/09/24 16:00 Coding Level of Care Code 34780 INP/OBS DISCH >30 MIN Diagnoses Acute appendicitis K35.80 Acute appendicitis type: unspecified acute appendicitis type
== END 2024-03-09 17:02 | disposition home or self-care (01) ==
LOC: ED 06:12 → 3N 13:31 → OR 13:31 → SUATTDRO 15:15